=== PATIENT | female | born 1965 | race Two or more races ===

== ENCOUNTER → 2020-08-18 15:43 | Outpatient (BNVA) | payer MEDICAID, SELFPAY | PROVIDERS: Visit Provider Obstetrics & Gynecology | DX: Z76.89 Persons encountering health services in other specified circumstances (principal) ==

== ENCOUNTER 2020-08-25 13:25 | Outpatient (REF) | payer MEDICAID, SELFPAY ==
[2020-08-26 12:55] LABS: CT PCR NOT DETECTED (Not Detect.); NG PCR NOT DETECTED (Not Detect.)
[2020-08-26 13:03] LABS: BV Int Neg Control Negative (Negative); BV Int Pos Control Positive (Positive)
== END 2020-08-25 13:26 | disposition home or self-care (01) ==
LOC: HO.LAB 13:25
PROVIDERS: Visit Provider Obstetrics & Gynecology
DX: Z01.419 Encounter for gynecological examination (general) (routine) without abnormal findings (principal); N95.0 Postmenopausal bleeding; R10.2 Pelvic and perineal pain
CPT/HCPCS: 87480; 87491; 87510; 87591; 87660

== ENCOUNTER 2020-09-05 14:15 | Outpatient (REF) | payer MEDICAID, SELFPAY ==
--- NOTE | 2020-09-05 14:18 | US_ITS ---
EXAMINATION: PELVIC ULTRASOUND CLINICAL INFORMATION: Pelvic and perineal pain COMPARISON: Previous pelvic ultrasounds November and September 2018 TECHNIQUE: Transabdominal and transvaginal pelvic ultrasound was performed. Transvaginal exam was performed for better visualization of the uterus and ovaries. FINDINGS: The uterus is anteverted and measures 8.4 x 5 x 4.7 cm in dimension. No focal uterine lesion is seen. Endometrial thickness measures 0.5 cm. There is a small amount of fluid seen in the endometrial canal. There are multiple nabothian cysts in the cervix. The previously identified cervical calcification or fibroid on previous exams is not identified. The right ovary measures 1.9 x 0.9 x 1.7 cm, volume 1.4 mL. The left ovary is slightly enlarged measuring 3.4 x 2.9 x 2.8 cm, volume 14.4 mL. No solid or cystic adnexal lesion is seen. There is no fluid in the pelvis. US/US pelvic complete IMPRESSION: Small amount of fluid in the endometrial canal. The endometrium does not appear thickened measuring 0.5 cm. Multiple nabothian cysts in the cervix. Prominent left ovary.
--- NOTE | 2020-09-05 14:18 | US_ITS ---
EXAMINATION: PELVIC ULTRASOUND CLINICAL INFORMATION: Pelvic and perineal pain COMPARISON: Previous pelvic ultrasounds November and September 2018 TECHNIQUE: Transabdominal and transvaginal pelvic ultrasound was performed. Transvaginal exam was performed for better visualization of the uterus and ovaries. FINDINGS: The uterus is anteverted and measures 8.4 x 5 x 4.7 cm in dimension. No focal uterine lesion is seen. Endometrial thickness measures 0.5 cm. There is a small amount of fluid seen in the endometrial canal. There are multiple nabothian cysts in the cervix. The previously identified cervical calcification or fibroid on previous exams is not identified. The right ovary measures 1.9 x 0.9 x 1.7 cm, volume 1.4 mL. The left ovary is slightly enlarged measuring 3.4 x 2.9 x 2.8 cm, volume 14.4 mL. No solid or cystic adnexal lesion is seen. There is no fluid in the pelvis. US/US transvaginal IMPRESSION: Small amount of fluid in the endometrial canal. The endometrium does not appear thickened measuring 0.5 cm. Multiple nabothian cysts in the cervix. Prominent left ovary.
== END 2020-09-05 14:16 | disposition home or self-care (01) ==
LOC: HO.US 14:15
PROVIDERS: Visit Provider Obstetrics & Gynecology
DX: R10.2 Pelvic and perineal pain (principal)
CPT/HCPCS: 76830; 76856

== ENCOUNTER 2020-09-12 15:14 | Outpatient (REF) | payer MEDICAID, SELFPAY | END 2020-09-12 15:15 | disposition home or self-care (01) | LOC: HO.LAB 15:14 | PROVIDERS: Visit Provider Obstetrics & Gynecology | DX: N95.0 Postmenopausal bleeding (principal) | CPT/HCPCS: 58100; 88305; 88312 ==

== ENCOUNTER → 2020-09-26 13:40 | Outpatient (BNVA) | payer MEDICAID, SELFPAY | PROVIDERS: Visit Provider Obstetrics & Gynecology | DX: Z76.89 Persons encountering health services in other specified circumstances (principal) ==

== ENCOUNTER → 2020-09-28 08:48 | Outpatient (BNVA) | payer MEDICAID, SELFPAY | PROVIDERS: PCP Internal Medicine; Referring Provider Internal Medicine; Visit Provider Physician Assistant | DX: Z76.89 Persons encountering health services in other specified circumstances (principal) ==

== ENCOUNTER 2021-09-28 14:18 | Outpatient (REF) | payer MEDICAID, SELFPAY ==
[2021-09-29 01:01] LABS: CT PCR NOT DETECTED (Not Detect.); NG PCR NOT DETECTED (Not Detect.)
[2021-09-29 09:13] LABS: BV Int Neg Control Negative (Negative); BV Int Pos Control Positive (Positive)
== END 2021-09-28 14:19 | disposition home or self-care (01) ==
LOC: HO.LAB 14:18
PROVIDERS: PCP Family Medicine; Visit Provider Obstetrics & Gynecology
DX: Z01.419 Encounter for gynecological examination (general) (routine) without abnormal findings (principal); N76.0 Acute vaginitis; B96.89 Other specified bacterial agents as the cause of diseases classified elsewhere; Z12.11 Encounter for screening for malignant neoplasm of colon
CPT/HCPCS: 87480; 87491; 87510; 87591; 87660

== ENCOUNTER 2021-11-03 14:44 | Outpatient (REF) | payer MEDICAID, SELFPAY ==
--- NOTE | ~2021-11-03 | MM_ITS ---
EXAMINATION: MM SCREENING DIGITAL BREAST TOMOSYNTHESIS, BILATERAL CLINICAL INFORMATION: Screening. Asymptomatic. The lifetime risk of breast cancer based on the Tyrer-Cuzick Model is 16%. COMPARISON: Mammography: 01/29/2018, 01/22/2014 TECHNIQUE: Digital breast tomosynthesis is performed in both the craniocaudal and mediolateral oblique views along with computer-aided detection (CAD). Synthesized 2D images are generated from the tomosynthesis. FINDINGS: There are scattered areas of fibroglandular density (ACR BI-RADS breast composition Category b). There are no significant masses, abnormal calcifications, or other abnormalities. Parenchymal pattern is similar to prior studies. There is no developing density or architectural abnormality. The axilla and skin contours are unremarkable. No significant changes. MM/MM tomosynthesis screening BI IMPRESSION: No mammographic evidence of malignancy. ASSESSMENT: BI-RADS 1: Negative RECOMMENDATION: Routine annual mammography screening. This patient's information was entered into a reminder system with a target due date for their next mammogram.
== END 2021-11-03 14:45 | disposition home or self-care (01) ==
LOC: HO.MAMMO 14:44
PROVIDERS: Visit Provider Obstetrics & Gynecology
DX: Z12.31 Encounter for screening mammogram for malignant neoplasm of breast (principal)
CPT/HCPCS: 77063; 77067

== ENCOUNTER 2022-10-02 14:08 | Outpatient (REF) | payer MEDICAID, SELFPAY ==
[2022-10-03 08:05] LABS: CT PCR NOT DETECTED (Not Detect.); NG PCR NOT DETECTED (Not Detect.)
[2022-10-03 11:11] LABS: BV Int Neg Control Negative (Negative); BV Int Pos Control Positive (Positive)
[2022-10-05 05:48] LABS: HPV mRNA E6/E7 rflx Not Detected (Not Detected)
== END 2022-10-02 14:09 | disposition home or self-care (01) ==
LOC: HO.LNP 14:08
PROVIDERS: PCP Family Medicine; Visit Provider Obstetrics & Gynecology
DX: Z01.419 Encounter for gynecological examination (general) (routine) without abnormal findings (principal); Z11.51 Encounter for screening for human papillomavirus (HPV); N95.0 Postmenopausal bleeding; N76.0 Acute vaginitis; B96.89 Other specified bacterial agents as the cause of diseases classified elsewhere
CPT/HCPCS: 87480; 87491; 87510; 87591; 87624; 87660; 88142; 99212

== ENCOUNTER → 2022-10-23 14:48 | Outpatient (BNVA) | payer MEDICAID, SELFPAY | PROVIDERS: PCP Family Medicine; Visit Provider Nurse Practitioner Family | DX: Z12.11 Encounter for screening for malignant neoplasm of colon (principal) | CPT/HCPCS: 99202 ==

== ENCOUNTER 2022-10-23 15:57 | Outpatient (REF) | payer MEDICAID, SELFPAY ==
[2022-10-24 06:44] LABS: Syphilis Screen Nonreactive (Nonreactive)
[2022-10-24 08:05] LABS: HBsAGNum1 0.33 S/CO (0.00-0.99); HIV AB/AG Nonreactive (Nonreactive); Hepatitis B Surface Antigen Negative (Negative); ~HepC Num1 0.18 S/CO (0.00-0.79); ~Hepatitis C Antibody Nonreactive (Nonreactive)
== END 2022-10-23 15:58 | disposition home or self-care (01) ==
LOC: HO.LAB 15:57
PROVIDERS: Visit Provider Obstetrics & Gynecology
DX: Z01.818 Encounter for other preprocedural examination (principal); Z11.4 Encounter for screening for human immunodeficiency virus [HIV]; B96.89 Other specified bacterial agents as the cause of diseases classified elsewhere; N76.0 Acute vaginitis
CPT/HCPCS: 36415; 86780; 86803; 87340; 87389

== ENCOUNTER 2022-11-07 15:21 | Outpatient (REF) | payer MEDICAID, SELFPAY ==
--- NOTE | ~2022-11-07 | US_ITS ---
EXAMINATION: US PELVIS CLINICAL INFORMATION: Postmenopausal bleeding. COMPARISON: 09/05/2020 TECHNIQUE: Ultrasound of the pelvis is performed using both transabdominal and transvaginal transducers along with Doppler. Transvaginal imaging is performed due to inadequate visualization transabdominally. FINDINGS: Uterus: The uterus is anteverted, retroflexed, and measures 9.3 x 4.2 x 4.1 cm. Calcification noted at the cervix. Nabothian cysts are present. The double wall endometrial thickness is 9 mm. The uterus is smooth in contour and has normal myometrial echogenicity. No visible fibroid. Adnexa: Both ovaries are visualized. There is normal color flow to the adnexa. There is no ovarian torsion. There is no pelvic ascites or fluid collection. Right ovary measures 1.7 x 0.9 x 1.8 cm. Left ovary measures 2.1 x 2.1 x 1.9 cm. US/US pelvic and transvaginal IMPRESSION: Thickened endometrium in a postmenopausal patient. Thickness is increased when compared to the prior study from 09/05/2020. While this could be hyperplasia, neoplastic process is possible. Further evaluation recommended.
== END 2022-11-07 15:22 | disposition home or self-care (01) ==
LOC: HO.US 15:21
PROVIDERS: Visit Provider Obstetrics & Gynecology
DX: N95.0 Postmenopausal bleeding (principal)
CPT/HCPCS: 76830; 76856

== ENCOUNTER 2022-11-09 13:55 | Outpatient (REF) | payer MEDICAID, SELFPAY ==
--- NOTE | ~2022-11-09 | MM_ITS ---
EXAMINATION: MM SCREENING DIGITAL BREAST TOMOSYNTHESIS, BILATERAL CLINICAL INFORMATION: Screening. Asymptomatic. The lifetime risk of breast cancer based on the Tyrer-Cuzick Model is 5%. COMPARISON: Mammography: 11/03/2021, 01/29/2018, 05/24/2014 TECHNIQUE: Digital breast tomosynthesis is performed in both the craniocaudal and mediolateral oblique views along with computer-aided detection (CAD). Synthesized 2D images are generated from the tomosynthesis. FINDINGS: There are scattered areas of fibroglandular density (ACR BI-RADS breast composition Category b). There are no significant masses, abnormal calcifications, or other abnormalities. Parenchymal pattern is similar to prior studies. There is no developing density or architectural abnormality. The axilla and skin contours are unremarkable. No significant changes. MM/MM tomosynthesis screening BI IMPRESSION: No mammographic evidence of malignancy. ASSESSMENT: BI-RADS 1: Negative RECOMMENDATION: Routine annual mammography screening. This patient's information was entered into a reminder system with a target due date for their next mammogram.
== END 2022-11-09 13:56 | disposition home or self-care (01) ==
LOC: HO.MAMMO 13:55
PROVIDERS: PCP Family Medicine; Visit Provider Family Medicine
DX: Z12.31 Encounter for screening mammogram for malignant neoplasm of breast (principal)
CPT/HCPCS: 77063; 77067

== ENCOUNTER → 2022-11-27 11:42 | Outpatient (BNVA) | payer MEDICAID, SELFPAY | PROVIDERS: PCP Family Medicine; Visit Provider Obstetrics & Gynecology | DX: N95.0 Postmenopausal bleeding (principal) | CPT/HCPCS: 99212 ==

== ENCOUNTER 2022-12-14 14:11 | Emergency (ER) | payer MEDICAID, SELFPAY ==
--- NOTE | ~2022-12-14 | XR_ITS ---
EXAMINATION: XR CHEST CLINICAL INFORMATION: Chest pain, shortness of breath. COMPARISON: 08/26/2019 chest radiographs. TECHNIQUE: 2 views of the chest were obtained. FINDINGS: No significant abnormality is noted involving the heart, lungs, mediastinum, bony thorax or soft tissues. XR/XR chest 2V IMPRESSION: No acute cardiopulmonary process.
[2022-12-14 14:24] VITALS: BP 150/89; PULSE 119; RESP 22; TEMP 36.7; O2SAT 95; BMI 28.8
--- NOTE | 2022-12-14 14:24 | ED_ITS ---
HPI - SOB/Dyspnea General Chief Complaint: Dyspnea <Radha Zhao CNP - Last Filed: 12/14/22 14:27> Stated Complaint: Diff breathing/cough <Radha Zhao CNP - Last Filed: 12/14/22 14:27> Time Seen by Provider: 12/14/22 14:54 <Radha Zhao CNP - Last Filed: 12/14/22 14:27> Source: patient and quality improvement consultant <MANUEL Linton Last Filed: 12/14/22 19:43> Mode of arrival: ambulatory <MANUEL Linton Last Filed: 12/14/22 19:43> Limitations: language barrier <MANUEL Linton Last Filed: 12/14/22 19:43> History of Present Illness HPI Narrative: Patient is a 57 year old assigned female at with no reported medical history presenting to the emergency department today with a dry cough x 1 month. Patient states that she has had a persistent dry cough for over a month at this point and has developed a new sore throat as of 4 days ago. Patient denies any dizziness, lightheadedness, abdominal pain, nausea, vomiting, fever, chills, blurry vision, double vision, loss of vision, chest pain, difficulty breathing, shortness of breath, back pain, night sweats, pain with urination, increased urinary frequency, increased urinary urgency, blood in her urine or stool, syncope or a near syncopal episode, recent trauma or falls, bowel incontinence, bladder incontinence, bowel retention, bladder retention, or any other complaints at this time. <MANUEL Linton - Last Filed: 12/14/22 19:43> MD elicited complaint: cough <MANUEL Linton Last Filed: 12/14/22 19:43> Onset (ago): month(s) (1) <MANUEL Linton Last Filed: 12/14/22 19:43> Context: recent illness <MANUEL Linton Last Filed: 12/14/22 19:43> Timing: constant <MANUEL Linton Last Filed: 12/14/22 19:43> Severity: mild <MANUEL Linton Last Filed: 12/14/22 19:43> Exacerbating factors: nothing <MANUEL Linton - Last Filed: 12/14/22 19:43> Relieving factors: nothing <MANUEL Linton - Last Filed: 12/14/22 19:43> Associated symptoms: cough <MANUEL Linton - Last Filed: 12/14/22 19:43> Treatment prior to arrival: none <MANUEL Linton - Last Filed: 12/14/22 19:43> Related Data Home oxygen amount: none <MANUEL Linton - Last Filed: 12/14/22 19:43> Home Medications: Home Medications Medication Instructions Recorded Confirmed albuterol sulfate 2.5 mg/3 mL mg inhalation TID 10/02/22 (0.083 %) solution for nebulization albuterol sulfate 90 mcg/actuation 2 puff inhalation Q4-6H PRN 10/02/22 aerosol inhaler (Proventil HFA) baclofen 10 mg tablet 5 mg PO 10/02/22 clonidine HCl 0.2 mg tablet 0.2 mg PO BEDTIME 10/02/22 lidocaine 5 % topical patch 0 patch topical 10/02/22 (Lidoderm) nebulizer and compressor (Proneb 10/02/22 Max Compressor-LC Plus) peg [id number]-[id number] 1 1 drp ophthalmic (eye) TID 10/02/22 %-0.2 %-0.2 % eye drops (Artificial Tears ([id number])) triamcinolone acetonide 0.025 % appl topical BID 10/02/22 topical cream Previous Rx's Medication Instructions Recorded polyethylene glycol 3350 17 238 g PO ONCE #238 grams 10/23/22 gram/dose oral powder (Miralax) bisacodyl 5 mg tablet,delayed 10 mg PO ONCE 1 day #2 tabs 11/11/22 release (Dulcolax (bisacodyl)) pantoprazole 40 mg tablet,delayed 40 mg PO DAILY #30 tabs 11/11/22 release benzonatate 100 mg capsule 100 mg PO BID PRN cough 7 days #14 12/14/22 caps doxycycline hyclate 100 mg tablet 100 mg PO BID 7 days #14 tabs 12/14/22 prednisone 20 mg tablet 20 mg PO DAILY 7 days #7 tabs 12/14/22 <Radha Zhao CNP - Last Filed: 12/14/22 14:27> Allergies/Adverse Reactions: Allergies Allergy/AdvReac Type Severity Reaction Status Date / Time No Known Allergies Allergy Verified 10/23/22 14:58 [No Known Allergies*] <Radha Zhao CNP - Last Filed: 12/14/22 14:27> Review of Systems Constitutional: Constitutional: Reports no additional constitutional complaints, Denies chills, Denies fever(s) and Denies night sweats <MANUEL Linton - Last Filed: 12/14/22 19:43> Eyes: Eyes: Reports no additional eye complaints, Denies blurry vision, Denies change in vision, Denies diplopia, Denies eye discharge, Denies loss of vision and Denies eye pain <MANUEL Linton - Last Filed: 12/14/22 19:43> ENT: Denies dizziness and Reports sore throat <MANUEL Linton - Last Filed: 12/14/22 19:43> Cardiovascular: Cardiovascular: Reports no additional cardiovascular complaints, Denies chest pain, Denies lightheadedness, Denies Loss of Consciousness and Denies dyspnea <MANUEL Linton - Last Filed: 12/14/22 19:43> Respiratory: Respiratory: Reports no additional respiratory complaints, Reports cough and Denies dyspnea <MANUEL Linton - Last Filed: 12/14/22 19:43> Gastrointestinal: Gastrointestinal: Reports no additional gastrointestinal complaints, Denies abdominal pain, Denies melena, Denies hematochezia, Denies change in bowel habits and Denies change in stool character <MANUEL Linton - Last Filed: 12/14/22 19:43> Genitourinary: Genitourinary: Denies hematuria, Denies urinary frequency, Denies dysuria, Denies urinary incontinence, Denies urinary hesitancy and Denies urinary urgency <MANUEL Linton - Last Filed: 12/14/22 19:43> Musculoskeletal: Musculoskeletal: Reports no additional musculoskeletal complaints, Denies numbness and Denies tingling <MANUEL Linton Last Filed: 12/14/22 19:43> Neurologic: Denies dizziness, Denies loss of vision, Denies numbness and Denies tingling <MANUEL Linton - Last Filed: 12/14/22 19:43> Psychiatric: Psychiatric: Reports no additional psychiatric complaints <MANUEL Linton - Last Filed: 12/14/22 19:43> Endocrine: Endocrine: Reports no additional endocrine complaints <MANUEL Linton - Last Filed: 12/14/22 19:43> Hematologic/Lymphatic: Hematologic/Lymphatic: Reports no additional hematologic/lymphatic complaints <MANUEL Linton - Last Filed: 12/14/22 19:43> Allergic/Immunologic: Allergic/Immunologic: Reports no additional allergic/immunologic complaints <MANUEL Linton - Last Filed: 12/14/22 19:43> [facility] Past Medical History Attestation statement: The following information was validated with the patient. <MANUEL Linton - Last Filed: 12/14/22 19:43> Source: old records reviewed and nursing notes reviewed <MANUEL Linton - Last Filed: 12/14/22 19:43> Medical History: Medical History Anxiety Bipolar disorder History of anemia History of depression Panic attacks <Radha Zhao CNP - Last Filed: 12/14/22 14:27> Surgical History: Surgical History History of History of endometrial ablation <Radha Zhao CNP - Last Filed: 12/14/22 14:27> Family History Family History: Family History Maternal Grandmother Uterine cancer <Radha Zhao CNP - Last Filed: 12/14/22 14:27> Social History Social History: Social History Household Members: Spouse and Children Are you a primary care companion to a significant other at home: No Do you presently have visiting nurse or other home services: No Alcohol intake: never Smoked in Last 30 Days: No Use of substances other than those prescribed or required for medical reasons: No Any prior treatment program specific to substance use: No Advance Directives: Yes Advance Directives Information Provided: Yes Advance Directives on File: No Patient : No Current occupational status: disabled Sexual orientation: Straight/Heterosexual Gender identity: Female <Radhacecil Zhao CNP - Last Filed: 12/14/22 14:27> Physical Exam Vital Signs: Vital Signs: Last Vital Signs Temp 98.0 F 12/14/22 14:24 Pulse 119 H 12/14/22 14:24 Resp 22 H 12/14/22 14:24 BP 150/89 H 12/14/22 14:24 Pulse Ox 95 12/14/22 14:24 O2 Del Method 12/14/22 14:24 BMI result Body Mass Index 28.8 <Radha Zhao CNP - Last Filed: 12/14/22 14:27> Vital Signs: Last Vital Signs Temp 98.0 F 12/14/22 14:24 Pulse 119 H 12/14/22 14:24 Resp 22 H 12/14/22 14:24 BP 150/89 H 12/14/22 14:24 Pulse Ox 95 12/14/22 14:24 O2 Del Method 12/14/22 14:24 BMI result Body Mass Index 28.8 <MANUEL Linton - Last Filed: 12/14/22 19:43> Const: General: cooperative, no acute distress, alert and awake <MANUEL Linton - Last Filed: 12/14/22 19:43> Nutritional Appearance: well nourished <MANUEL Linton - Last Filed: 12/14/22 19:43> Orientation/consciousness: patient oriented x3 <MANUEL Linton - Last Filed: 12/14/22 19:43> Limitations: no limitations <MANUEL Linton - Last Filed: 12/14/22 19:43> HEENT: Head: Yes normal to inspection and Yes atraumatic <MANUEL Osorio - Last Filed: 12/14/22 19:43> Ears: hearing grossly normal bilaterally and external ears normal <MANUEL Linton - Last Filed: 12/14/22 19:43> General nose exam: Normal external nose present, no nasal discharge noted and no epistaxis <MANUEL Linton - Last Filed: 12/14/22 19:43> Face and sinus: Yes normal facial exam, No abrasion and No laceration <Denaedanica Menardjim [place] - Last Filed: 12/14/22 19:43> Mouth: Normal oral and palatal mucosa present, no drooling and no muffled voice <Denae Menardjim [place] - Last Filed: 12/14/22 19:43> Eyes: General: appearance normal, both eyes and all related structures <Denae Rik [place] - Last Filed: 12/14/22 19:43> Periorbital: periorbital findings normal <Denae Menardjim [place] - Last Filed: 12/14/22 19:43> Eyelids: Yes eyelids normal <Denaedanica Menardjim [place] - Last Filed: 12/14/22 19:43> Conjunctivae: conjunctivae normal <Denaedanica Menardjim [place] - Last Filed: 12/14/22 19:43> Pupils: Equal, round and reactive pupils present <Denae Jolly [place] - Last Filed: 12/14/22 19:43> EOM: EOMs intact bilaterally <Denaedanica Menardjim [place] - Last Filed: 12/14/22 19:43> Neck: Neck: Yes normal visual inspection, Yes full ROM and Yes no lymphadenopathy <Denaedanica Menardjim [place] - Last Filed: 12/14/22 19:43> Chest: Chest palpation & inspection: normal inspection of the chest <Denae Rik [facility] Last Filed: 12/14/22 19:43> Resp: Effort & Inspection: normal respiratory effort and able to speak in complete sentences <Denae Jolly [place] - Last Filed: 12/14/22 19:43> Auscultation: clear to auscultation bilaterally <Denae Rik [facility] Last Filed: 12/14/22 19:43> Cardio: Rate: regular rate <Denae Jolly [place] - Last Filed: 12/14/22 19:43> Rhythm: regular rhythm <Denae Rik [place] - Last Filed: 12/14/22 19:43> GI: Inspection: Yes normal to inspection <Denae Jolly [place] - Last Filed: 12/14/22 19:43> Palpation (GI): Soft to palpation, not firm, nontender, no guarding and not rigid <Denae MenardMANUEL fernandez - Last Filed: 12/14/22 19:43> Neuro: General: patient oriented x3 and moves all extremities <Denae MenardMANUEL fernandez - Last Filed: 12/14/22 19:43> Cranial nerves: Yes Equal, round and reactive pupils present <Denae JollyMANUEL - Last Filed: 12/14/22 19:43> Cognition (Neuro): normal cognition <Denae MenardMANUEL fernandez - Last Filed: 12/14/22 19:43> Motor exam (neuro): 5/5 motor strength present throughout <Denae JollyMANUEL - Last Filed: 12/14/22 19:43> Sensory Exam: Normal double simultaneous stimulation for sensation <Denae MenardMANUEL fernandez - Last Filed: 12/14/22 19:43> Coordination: [id number] test normal <Denae MenardMANUEL fernandez - Last Filed: 12/14/22 19:43> Extrem: General: Yes normal to inspection, Yes full ROM and Yes capillary refill normal <Denae MenardMANUEL fernandez - Last Filed: 12/14/22 19:43> Psych: Appearance: grossly normal <Denae JollyMANUEL - Last Filed: 12/14/22 19:43> Mental Status: mental status grossly normal <Denae MenardMANUEL fernandez - Last Filed: 12/14/22 19:43> Affect: normal affect <Denae MenardMANUEL fernandez - Last Filed: 12/14/22 19:43> Attitude: cooperative <Denaedanica MenardMANUEL fernandez - Last Filed: 12/14/22 19:43> Thought process: Normal thought process present <Denae MenardMANUEL fernandez - Last Filed: 12/14/22 19:43> Thought content: Normal thought content present <Denae MenardMANUEL fernandez - Last Filed: 12/14/22 19:43> Insight: Good insight present (Psych) <Denaedanica MenardMANUEL fernandez - Last Filed: 12/14/22 19:43> Course Course Course Narrative: This is an RME: Additional HPI, ROS, PE not included below will be deferred to primary provider. Patient is a 57-year-old female with past medical history of asthma who presents emergency department for evaluation of nonproductive cough, shortness of breath, orthopnea, intermittent fevers over the past month. Symptom onset began after she had returned home from a vacation. She has had COVID-19 testing at home which has been negative. She has trialed [id number] cold medication without any significant improvement. She is tachycardic and tachypneic Plan: labs, CXR, viral testing, EKG <Radha Zhao CNP - Last Filed: 12/14/22 14:27> Medical Decision Making Medical Decision Making [facility] Narrative: Patient is a 57 year old assigned female at with no reported medical history presenting to the emergency department today with a dry cough. Patient's physical exam was unremarkable. Patient's blood work was unremarkable. Patient's EKG was unremarkable. Patient's chest x-ray showed no acute process. I explained my physical exam findings as well as all test results to the patient. I answered all questions asked by the patient. I stressed the importance of the patient taking her medication as prescribed. I stressed the importance of the patient following up with her primary care provider. I stressed the importance of the patient returning to the emergency department immediately if her symptoms were to worsen or if she were to develop any dizziness, shortness of breath, difficulty breathing, chest pain, blurry vision, loss of vision, nausea, vomiting, abdominal pain, fever, chills, back pain, or any other complaints. Patient verbalized agreement and understanding with this treatment plan and discharge. <MANUEL Linton - Last Filed: 12/14/22 19:43> Differential Diagnosis Differential Diagnoses: The differential diagnosis associated with the presentation includes <MANUEL Linton - Last Filed: 12/14/22 19:43> persistent cough <MANUEL Linton - Last Filed: 12/14/22 19:43> Lab Data [facility] Lab Attestation statement: I reviewed the patient's lab results. <MANUEL Linton - Last Filed: 12/14/22 19:43> Result Diagrams: 12/14/22 14:43 12/14/22 14:43 <Radha Zhao CNP - Last Filed: 12/14/22 14:27> Labs: Lab Results 12/14/22 12/14/22 12/14/22 Range/Units 14:43 14:43 14:43 WBC 4.4 L (4.8-10.8) X10*3/uL RBC 4.59 (4.20-5.50) X10*6/uL Hgb 14.7 (12.0-16.0) g/dl Hct 43.4 (37.0-47.0) % MCV 94.6 (80.0-98.0) fL MCH 32.0 (27.0-33.0) pg MCHC 33.9 (31.0-35.0) g/dl RDW 11.6 (11.0-16.0) % Plt Count 331 (160-400) X10*3/uL MPV 9.0 L (9.4-12.3) fL Immature Gran % (Auto) 0.5 H (0.0-0.4) % Neut % (Auto) 53.4 (45-73) % Lymph % (Auto) 34.8 (20-40) % Upson % (Auto) 9.2 (2-11) % Eos % (Auto) 1.4 (0-4) % Baso % (Auto) 0.7 (0-2) % Lymph # (Auto) 1.5 (1.2-4.9) X10*3/uL Upson # (Auto) 0.4 (0.1-1.2) X10*3/uL Eos # (Auto) 0.1 (0.0-0.4) X10*3/uL Baso # (Auto) 0.0 (0.0-0.2) X10*3/uL Abs Immat Gran (auto) 0.02 (0.00-0.03) X10*3/uL Absolute Neuts (auto) 2.3 (2.0-8.3) x10*3/uL Absolute Nucleated RBC 0.000 (0.0-0.012) X10*3/uL Nucleated RBC % (auto) 0.0 (0.0-0.2) /100WBC PT 11.1 (10.0-13.1) SEC INR 1.0 (0.9-1.1) Sodium 138 (135-145) mmol/L Potassium 4.3 (3.3-5.1) mmol/L Chloride 106 (96-108) mmol/L Carbon Dioxide 24 (22-29) mmol/L Anion Gap 12 (12-20) BUN 14 (9-16) mg/dL Creatinine 0.79 (0.5-1.4) mg/dL Estim Creat Clear Calc 86.4 Estimated GFR > 60 Random Glucose 143 H (60-115) mg/dL Calcium 8.8 (8.4-10.2) mg/dL Total Bilirubin 0.6 (0.0-1.0) mg/dL AST 30 (5-31) U/L ALT 44 H (0-31) U/L Alkaline Phosphatase 101 (39-117) U/L Troponin I High Sens (<3.5-17.0) ng/L B-Natriuretic Peptide (<100) pg/mL Total Protein 7.2 (6.5-8.0) g/dL Albumin 4.1 (3.5-5.0) g/dL COVID-19 (GURPREET) (Negative) COVID-19 Clin Com Influenza Type A (ASHANTI) (Negative) Influenza Type B (ASHANTI) (Negative) Influenza A & B Note 12/14/22 12/14/22 12/14/22 Range/Units 14:43 14:43 14:43 WBC (4.8-10.8) X10*3/uL RBC (4.20-5.50) X10*6/uL Hgb (12.0-16.0) g/dl Hct (37.0-47.0) % MCV (80.0-98.0) fL MCH (27.0-33.0) pg MCHC (31.0-35.0) g/dl RDW (11.0-16.0) % Plt Count (160-400) X10*3/uL MPV (9.4-12.3) fL Immature Gran % (Auto) (0.0-0.4) % Neut % (Auto) (45-73) % Lymph % (Auto) (20-40) % Upson % (Auto) (2-11) % Eos % (Auto) (0-4) % Baso % (Auto) (0-2) % Lymph # (Auto) (1.2-4.9) X10*3/uL Upson # (Auto) (0.1-1.2) X10*3/uL Eos # (Auto) (0.0-0.4) X10*3/uL Baso # (Auto) (0.0-0.2) X10*3/uL Abs Immat Gran (auto) (0.00-0.03) X10*3/uL Absolute Neuts (auto) (2.0-8.3) x10*3/uL Absolute Nucleated RBC (0.0-0.012) X10*3/uL Nucleated RBC % (auto) (0.0-0.2) /100WBC PT (10.0-13.1) SEC INR (0.9-1.1) Sodium (135-145) mmol/L Potassium (3.3-5.1) mmol/L Chloride (96-108) mmol/L Carbon Dioxide (22-29) mmol/L Anion Gap (12-20) BUN (9-16) mg/dL Creatinine (0.5-1.4) mg/dL Estim Creat Clear Calc Estimated GFR Random Glucose (60-115) mg/dL Calcium (8.4-10.2) mg/dL Total Bilirubin (0.0-1.0) mg/dL AST (5-31) U/L ALT (0-31) U/L Alkaline Phosphatase (39-117) U/L Troponin I High Sens < 3.5 (<3.5-17.0) ng/L B-Natriuretic Peptide 10 (<100) pg/mL Total Protein (6.5-8.0) g/dL Albumin (3.5-5.0) g/dL COVID-19 (GURPREET) (Negative) COVID-19 Clin Com Influenza Type A (ASHANTI) Negative (Negative) Influenza Type B (ASHANTI) Negative (Negative) Influenza A & B Note See Note 12/14/22 Range/Units 14:43 WBC (4.8-10.8) X10*3/uL RBC (4.20-5.50) X10*6/uL Hgb (12.0-16.0) g/dl Hct (37.0-47.0) % MCV (80.0-98.0) fL MCH (27.0-33.0) pg MCHC (31.0-35.0) g/dl RDW (11.0-16.0) % Plt Count (160-400) X10*3/uL MPV (9.4-12.3) fL Immature Gran % (Auto) (0.0-0.4) % Neut % (Auto) (45-73) % Lymph % (Auto) (20-40) % Upson % (Auto) (2-11) % Eos % (Auto) (0-4) % Baso % (Auto) (0-2) % Lymph # (Auto) (1.2-4.9) X10*3/uL Upson # (Auto) (0.1-1.2) X10*3/uL Eos # (Auto) (0.0-0.4) X10*3/uL Baso # (Auto) (0.0-0.2) X10*3/uL Abs Immat Gran (auto) (0.00-0.03) X10*3/uL Absolute Neuts (auto) (2.0-8.3) x10*3/uL Absolute Nucleated RBC (0.0-0.012) X10*3/uL Nucleated RBC % (auto) (0.0-0.2) /100WBC PT (10.0-13.1) SEC INR (0.9-1.1) Sodium (135-145) mmol/L Potassium (3.3-5.1) mmol/L Chloride (96-108) mmol/L Carbon Dioxide (22-29) mmol/L Anion Gap (12-20) BUN (9-16) mg/dL Creatinine (0.5-1.4) mg/dL Estim Creat Clear Calc Estimated GFR Random Glucose (60-115) mg/dL Calcium (8.4-10.2) mg/dL Total Bilirubin (0.0-1.0) mg/dL AST (5-31) U/L ALT (0-31) U/L Alkaline Phosphatase (39-117) U/L Troponin I High Sens (<3.5-17.0) ng/L B-Natriuretic Peptide (<100) pg/mL Total Protein (6.5-8.0) g/dL Albumin (3.5-5.0) g/dL COVID-19 (GURPREET) Negative (Negative) COVID-19 Clin Com See Note Influenza Type A (ASHANTI) (Negative) Influenza Type B (ASHANTI) (Negative) Influenza A & B Note <Radhamary Zhao, FISH HATCHERY SUPERVISOR - Last Filed: 12/14/22 14:27> Lab Results 12/14/22 12/14/22 12/14/22 Range/Units 14:43 14:43 14:43 WBC 4.4 L (4.8-10.8) X10*3/uL RBC 4.59 (4.20-5.50) X10*6/uL Hgb 14.7 (12.0-16.0) g/dl Hct 43.4 (37.0-47.0) % MCV 94.6 (80.0-98.0) fL MCH 32.0 (27.0-33.0) pg MCHC 33.9 (31.0-35.0) g/dl RDW 11.6 (11.0-16.0) % Plt Count 331 (160-400) X10*3/uL MPV 9.0 L (9.4-12.3) fL Immature Gran % (Auto) 0.5 H (0.0-0.4) % Neut % (Auto) 53.4 (45-73) % Lymph % (Auto) 34.8 (20-40) % Upson % (Auto) 9.2 (2-11) % Eos % (Auto) 1.4 (0-4) % Baso % (Auto) 0.7 (0-2) % Lymph # (Auto) 1.5 (1.2-4.9) X10*3/uL Upson # (Auto) 0.4 (0.1-1.2) X10*3/uL Eos # (Auto) 0.1 (0.0-0.4) X10*3/uL Baso # (Auto) 0.0 (0.0-0.2) X10*3/uL Abs Immat Gran (auto) 0.02 (0.00-0.03) X10*3/uL Absolute Neuts (auto) 2.3 (2.0-8.3) x10*3/uL Absolute Nucleated RBC 0.000 (0.0-0.012) X10*3/uL Nucleated RBC % (auto) 0.0 (0.0-0.2) /100WBC PT 11.1 (10.0-13.1) SEC INR 1.0 (0.9-1.1) Sodium 138 (135-145) mmol/L Potassium 4.3 (3.3-5.1) mmol/L Chloride 106 (96-108) mmol/L Carbon Dioxide 24 (22-29) mmol/L Anion Gap 12 (12-20) BUN 14 (9-16) mg/dL Creatinine 0.79 (0.5-1.4) mg/dL Estim Creat Clear Calc 86.4 Estimated GFR > 60 Random Glucose 143 H (60-115) mg/dL Calcium 8.8 (8.4-10.2) mg/dL Total Bilirubin 0.6 (0.0-1.0) mg/dL AST 30 (5-31) U/L ALT 44 H (0-31) U/L Alkaline Phosphatase 101 (39-117) U/L Troponin I High Sens (<3.5-17.0) ng/L B-Natriuretic Peptide (<100) pg/mL Total Protein 7.2 (6.5-8.0) g/dL Albumin 4.1 (3.5-5.0) g/dL COVID-19 (GURPREET) (Negative) COVID-19 Clin Com Influenza Type A (ASHANTI) (Negative) Influenza Type B (ASHANTI) (Negative) Influenza A & B Note 12/14/22 12/14/22 12/14/22 Range/Units 14:43 14:43 14:43 WBC (4.8-10.8) X10*3/uL RBC (4.20-5.50) X10*6/uL Hgb (12.0-16.0) g/dl Hct (37.0-47.0) % MCV (80.0-98.0) fL MCH (27.0-33.0) pg MCHC (31.0-35.0) g/dl RDW (11.0-16.0) % Plt Count (160-400) X10*3/uL MPV (9.4-12.3) fL Immature Gran % (Auto) (0.0-0.4) % Neut % (Auto) (45-73) % Lymph % (Auto) (20-40) % Upson % (Auto) (2-11) % Eos % (Auto) (0-4) % Baso % (Auto) (0-2) % Lymph # (Auto) (1.2-4.9) X10*3/uL Upson # (Auto) (0.1-1.2) X10*3/uL Eos # (Auto) (0.0-0.4) X10*3/uL Baso # (Auto) (0.0-0.2) X10*3/uL Abs Immat Gran (auto) (0.00-0.03) X10*3/uL Absolute Neuts (auto) (2.0-8.3) x10*3/uL Absolute Nucleated RBC (0.0-0.012) X10*3/uL Nucleated RBC % (auto) (0.0-0.2) /100WBC PT (10.0-13.1) SEC INR (0.9-1.1) Sodium (135-145) mmol/L Potassium (3.3-5.1) mmol/L Chloride (96-108) mmol/L Carbon Dioxide (22-29) mmol/L Anion Gap (12-20) BUN (9-16) mg/dL Creatinine (0.5-1.4) mg/dL Estim Creat Clear Calc Estimated GFR Random Glucose (60-115) mg/dL Calcium (8.4-10.2) mg/dL Total Bilirubin (0.0-1.0) mg/dL AST (5-31) U/L ALT (0-31) U/L Alkaline Phosphatase (39-117) U/L Troponin I High Sens < 3.5 (<3.5-17.0) ng/L B-Natriuretic Peptide 10 (<100) pg/mL Total Protein (6.5-8.0) g/dL Albumin (3.5-5.0) g/dL COVID-19 (GURPREET) (Negative) COVID-19 Clin Com Influenza Type A (ASHANTI) Negative (Negative) Influenza Type B (ASHANTI) Negative (Negative) Influenza A & B Note See Note 12/14/22 Range/Units 14:43 WBC (4.8-10.8) X10*3/uL RBC (4.20-5.50) X10*6/uL Hgb (12.0-16.0) g/dl Hct (37.0-47.0) % MCV (80.0-98.0) fL MCH (27.0-33.0) pg MCHC (31.0-35.0) g/dl RDW (11.0-16.0) % Plt Count (160-400) X10*3/uL MPV (9.4-12.3) fL Immature Gran % (Auto) (0.0-0.4) % Neut % (Auto) (45-73) % Lymph % (Auto) (20-40) % Upson % (Auto) (2-11) % Eos % (Auto) (0-4) % Baso % (Auto) (0-2) % Lymph # (Auto) (1.2-4.9) X10*3/uL Upson # (Auto) (0.1-1.2) X10*3/uL Eos # (Auto) (0.0-0.4) X10*3/uL Baso # (Auto) (0.0-0.2) X10*3/uL Abs Immat Gran (auto) (0.00-0.03) X10*3/uL Absolute Neuts (auto) (2.0-8.3) x10*3/uL Absolute Nucleated RBC (0.0-0.012) X10*3/uL Nucleated RBC % (auto) (0.0-0.2) /100WBC PT (10.0-13.1) SEC INR (0.9-1.1) Sodium (135-145) mmol/L Potassium (3.3-5.1) mmol/L Chloride (96-108) mmol/L Carbon Dioxide (22-29) mmol/L Anion Gap (12-20) BUN (9-16) mg/dL Creatinine (0.5-1.4) mg/dL Estim Creat Clear Calc Estimated GFR Random Glucose (60-115) mg/dL Calcium (8.4-10.2) mg/dL Total Bilirubin (0.0-1.0) mg/dL AST (5-31) U/L ALT (0-31) U/L Alkaline Phosphatase (39-117) U/L Troponin I High Sens (<3.5-17.0) ng/L B-Natriuretic Peptide (<100) pg/mL Total Protein (6.5-8.0) g/dL Albumin (3.5-5.0) g/dL COVID-19 (GURPREET) Negative (Negative) COVID-19 Clin Com See Note Influenza Type A (ASHANTI) (Negative) Influenza Type B (ASHANTI) (Negative) Influenza A & B Note <MANUEL Linton Last Filed: 12/14/22 19:43> Independent Interpretation I performed an independent interpretation of an: EKG <MANUEL Linton - Last Filed: 12/14/22 19:43> Interpretation: Vent. Rate: 104 BPM ? ? Atrial Rate: 104 BPM P-R Int: 138 ms? QRS Dur: 074 ms QT Int: 346 ms ? ? ? P-R-T Axes: 054 021 049 degrees QTc Int: 454 ms ? Sinus tachycardia Otherwise normal ECG When compared with ECG of 10-JAN-2019 00:04, No significant change was found DD/ 1435 <MANUEL Linton - Last Filed: 12/14/22 19:43> Radiology Impression Radiologist Impression: My interpretation is in agreement with the radiologist's impression of this imaging study. EXAMINATION: XR CHEST CLINICAL INFORMATION: Chest pain, shortness of breath. COMPARISON: 08/26/2019 chest radiographs. TECHNIQUE: 2 views of the chest were obtained. FINDINGS: No significant abnormality is noted involving the heart, lungs, mediastinum, bony thorax or soft tissues. XR/XR chest 2V IMPRESSION: No acute cardiopulmonary process. Dictated By: Sawyer Garcia MD Signed By: Electronically signed by Sawyer Garcia MD 12/14/22 1515 <MANUEL Linton - Last Filed: 12/14/22 19:43> Discharge Plan Discharge Clinical Impression: Bronchitis <Radha Kaylayovani Zhao CNP - Last Filed: 12/14/22 14:27> Patient Disposition: Home, Self-Care <Radha Zhao CNP - Last Filed: 12/14/22 14:27> Instructions: Acute Bronchitis (ED) <Radha Zhao CNP - Last Filed: 12/14/22 14:27> Additional Instructions: Follow up with your primary care provider. Return to the emergency department immediately if your symptoms worsen or if you develop any dizziness, shortness of breath, difficulty breathing, chest pain, blurry vision, loss of vision, nausea, vomiting, abdominal pain, fever, chills, back pain, or any other complaints. Jimbo un seguimiento con quintanilla proveedor de atenci?n primaria. Regrese al departamento de emergencias de inmediato si edie s?ntomas empeoran o si presenta mareos, falta de aire, dificultad para respirar, dolor de pecho, visi?n borrosa, p?rdida de la visi?n, n?useas, v?mitos, dolor abdominal, fiebre, escalofr?os, dolor de espalda o cualquier otras quejas. <Radha Zhao CNP - Last Filed: 12/14/22 14:27> Prescriptions: New prednisone 20 mg tablet 20 mg PO DAILY 7 Days Qty: 7 0RF benzonatate 100 mg capsule 100 mg PO BID PRN (Reason: cough) 7 Days Qty: 14 0RF doxycycline hyclate 100 mg tablet 100 mg PO BID 7 Days Qty: 14 0RF No Action pantoprazole 40 mg tablet,delayed release (DR/EC) 40 mg PO DAILY Qty: 30 2RF Rx Instructions: take one tablet half an hour before breakfast bisacodyl [Dulcolax (bisacodyl)] 5 mg tablet,delayed release (DR/EC) 10 mg PO ONCE 1 Days Qty: 2 0RF Rx Instructions: take 2 tabs at noon the day before your colonoscopy polyethylene glycol 3350 [Miralax] 17 gram/dose powder 238 g PO ONCE Qty: 238 0RF Rx Instructions: As directed by gastroenterology department at [facility] clonidine HCl 0.2 mg tablet 0.2 mg PO BEDTIME Artificial Tears(ab-ehqq-ttox) 1-0.2-0.2 % drops 1 drp ophthalmic (eye) TID albuterol sulfate [Proventil HFA] 90 mcg/actuation HFA aerosol inhaler 2 puff inhalation Q4-6H PRN baclofen 10 mg tablet 5 mg PO albuterol sulfate 2.5 mg /3 mL (0.083 %) solution for nebulization inhalation TID (DME) nebulizer and compressor [Proneb Max Compressor-LC Plus] Device See Rx Instructions .ROUTE Rx Instructions: As directed lidocaine [Lidoderm] 5 % adhesive patch,medicated 0 patch topical triamcinolone acetonide 0.025 % cream topical BID <Radha Zhao CNP - Last Filed: 12/14/22 14:27> Referrals: [facility] [place] Family Medicine [Provider Group] (Call to establish and follow up with a primary care provider. If you already have a primary care provider, please follow up with them. Llame para establecer y hacer un seguimiento con un proveedor de atenci?n primaria. Si ya tiene un proveedor de atenci?n primaria, jimbo un seguimiento con ?l.) [facility] [place] [facility] [Provider Group] (Call to establish and follow up with a primary care provider. If you already have a primary care provider, please follow up with them. Llame para establecer y hacer un seguimiento con un proveedor de atenci?n primaria. Si ya tiene un proveedor de atenci?n primaria, jimbo un seguimiento con ?l.) [facility] [Provider Group] (Call to establish and follow up with a primary care provider. If you already have a primary care provider, please follow up with them. Llame para establecer y hacer un seguimiento con un proveedor de atenci?n primaria. Si ya tiene un proveedor de atenci?n primaria, jimbo un seguimiento con ?l.) <Radha Zhao CNP - Last Filed: 12/14/22 14:27> Interventions: ED Discharge Assessment Last Done: 12/14/22 15:46 <Radha Zhao CNP - Last Filed: 12/14/22 14:27> Discharge Date/Time: 12/14/22 15:46 <Radha Zhao CNP - Last Filed: 12/14/22 14:27> Print Language: Kuwaiti <Radha Zhao CNP - Last Filed: 12/14/22 14:27>
--- NOTE | 2022-12-14 14:27 | ECG_ITS ---
Test Reason : SOB Blood Pressure : / mmHG Vent. Rate : 104 BPM Atrial Rate : 104 BPM P-R Int : 138 ms QRS Dur : 074 ms QT Int : 346 ms P-R-T Axes : 054 021 049 degrees QTc Int : 454 ms Sinus tachycardia Otherwise normal ECG When compared with ECG of 10-JAN-2019 00:04, No significant change was found Referred By: Radha Zhao Electronically Signed By:GOMEZ CLEMONS MD
[2022-12-14 14:51] LABS: MANUAL DIFF FLAG NO
[2022-12-14 14:54] LABS: Basophils Percent Auto 0.7 % (0-2); Eosinophils Absolute Auto 0.1 X10*3/uL (0.0-0.4); Eosinophils Percent Auto 1.4 % (0-4); Hematocrit 43.4 % (37.0-47.0); Hemoglobin 14.7 g/dl (12.0-16.0); Imm Gran Abs Auto 0.02 X10*3/uL (0.00-0.03); Imm Gran Pct Auto 0.5 % (0.0-0.4); Lymphocytes Absolute Auto 1.5 X10*3/uL (1.2-4.9); Lymphocytes Percent Auto 34.8 % (20-40); Mean Corpuscular HGB Conc 33.9 g/dl (31.0-35.0); Mean Corpuscular Volume 94.6 fL (80.0-98.0); Monocytes Absolute Auto 0.4 X10*3/uL (0.1-1.2); Monocytes Percent Auto 9.2 % (2-11); Neutrophils Absolute Auto 2.3 x10*3/uL (2.0-8.3); Neutrophils Percent Auto 53.4 % (45-73); Platelet Count 331 X10*3/uL (160-400); Red Blood Count 4.59 X10*6/uL (4.20-5.50); Red Cell Distribution Width 11.6 % (11.0-16.0); White Blood Count 4.4 X10*3/uL (4.8-10.8)
[2022-12-14 15:03] LABS: Prothrombin Time 11.1 SEC (10.0-13.1)
[2022-12-14 15:07] LABS: Alanine Aminotransferase 44 U/L (0-31); Albumin Level 4.1 g/dL (3.5-5.0); Alkaline Phosphatase 101 U/L (39-117); Anion Gap 12 (12-20); Aspartate Amino Transferase 30 U/L (5-31); Bilirubin Total 0.6 mg/dL (0.0-1.0); Blood Urea Nitrogen 14 mg/dL (9-16); COVID-19 Test Negative (Negative); Calcium 8.8 mg/dL (8.4-10.2); Carbon Dioxide 24 mmol/L (22-29); Chloride 106 mmol/L (96-108); Creatinine Clr Calc Pharmacy 86.4; Estimated Glomerular Filt Rate > 60; Glucose Random 143 mg/dL (60-115); IDNOW Serial# 16C4AD1C; Potassium 4.3 mmol/L (3.3-5.1); Sodium 138 mmol/L (135-145); Total Protein 7.2 g/dL (6.5-8.0)
[2022-12-14 15:12] LABS: B Type Natriuretic Peptide 10 pg/mL (<100)
[2022-12-14 15:16] LABS: Troponin-I High Sensitivity < 3.5 ng/L (<3.5-17.0)
[2022-12-14 15:17] LABS: IDNOW Serial# 55D5AD1C; Influenza A Negative (Negative); Influenza B2 Negative (Negative)
== END 2022-12-14 15:46 | disposition home or self-care (01) ==
PROVIDERS: Nurse Practitioner Family; Emergency Provider Emergency Medicine Emergency Medical Services
DX: J40 Bronchitis, not specified as acute or chronic (principal); R06.02 Shortness of breath; Z20.822 Contact with and (suspected) exposure to COVID-19; Z20.828 Contact with and (suspected) exposure to other viral communicable diseases; Z79.899 Other long term (current) drug therapy
CPT/HCPCS: 71046; 80053; 83880; 84484; 85025; 85610; 87502; 87635; 93005; 99283; 99284

== ENCOUNTER → 2022-12-21 06:08 | Day surgery (SDC) | payer MEDICAID, SELFPAY ==
[2022-12-18 09:40] VITALS: BMI 28.0
--- NOTE | 2022-12-20 10:53 | HO.ANESPROP2 ---
Documented by User: Helen Becker NP 12/20/22 10:57 HPI - Anesthesia Eval Consult details Narrative: 57yo F for D&C Hysteroscopy,poss polypectomy/myomectomy [facility] 12/14/22 with acute bronchitis - RX for 7 day course of abx/steroids PMFSH Active Problems Active Problems: All Active Problems (Updated 12/15/22 @ 00:00 by Background Liz) Bacterial vaginosis (Acute) Well woman exam (Acute) Post-menopausal bleeding (Acute) Female pelvic pain (Acute) Encounter for screening colonoscopy (Acute) Past Medical History Medical History Anxiety Bipolar disorder History of anemia History of depression Panic attacks Family History Family History Maternal Grandmother Uterine cancer Surgical History Surgical History History of History of endometrial ablation Social History Social History Household Members: Spouse and Children Are you a primary memory care program director to a significant other at home: No Do you presently have visiting nurse or other home services: No Alcohol intake: never Patient Tobacco Use Status: Never used Tobacco Use of substances other than those prescribed or required for medical reasons: No Are you DNR?: No Advance Directives: No Advance Directives Information Provided: Yes Current occupational status: disabled Sexual orientation: Straight/Heterosexual Gender identity: Female Meds Allergies Allergy/AdvReac Type Severity Reaction Status Date / Time No Known Allergies Allergy Verified 10/23/22 14:58 [No Known Allergies*] Home Medications Medication Instructions Recorded Confirmed Last Taken Type albuterol sulfate 2.5 mg/3 mL 2.5 mg inhalation TID 10/02/22 12/18/22 Unknown History (0.083 %) solution for nebulization albuterol sulfate 90 mcg/actuation 2 puff inhalation Q4-6H PRN 10/02/22 12/18/22 Unknown History aerosol inhaler (Proventil HFA) Wheezing baclofen 10 mg tablet 5 mg PO BID 10/02/22 12/18/22 Unknown History clonidine HCl 0.2 mg tablet 0.2 mg PO BEDTIME 10/02/22 12/18/22 Unknown History lidocaine 5 % topical patch 1 patch topical DAILY 10/02/22 12/18/22 Unknown History (Lidoderm) nebulizer and compressor (Proneb 10/02/22 12/21/22 Unknown History Max Compressor-LC Plus) peg [id number] 1 1 drp ophthalmic (eye) TID 10/02/22 12/21/22 Unknown History %-0.2 %-0.2 % eye drops (Artificial Tears ([id number])) triamcinolone acetonide 0.025 % 1 appl topical BID 10/02/22 12/18/22 Unknown History topical cream atorvastatin 10 mg tablet 1 tab PO BEDTIME 12/18/22 12/18/22 Unknown History cholecalciferol (vitamin D3) 50 1 tab PO DAILY 12/18/22 12/18/22 Unknown History mcg (2,000 unit) tablet escitalopram oxalate 20 mg tablet 1 tab PO BEDTIME 12/18/22 12/18/22 Unknown History (Lexapro) lorazepam 0.5 mg tablet 1 tab PO BID PRN Anxiety 12/18/22 12/18/22 Unknown History multivitamin 1 tab PO QAM 12/18/22 12/18/22 Unknown History Exam Exam Date and Time: December 20, 2022 1053 Height,Weight and Vital Signs: Height 5 ft 6 in Weight 79 kg Pertinent Lab Results Pertinent Lab Results: Laboratory Tests 12/14/22 12/14/22 14:43 14:43 WBC 4.4 L Hgb 14.7 Hct 43.4 Plt Count 331 Sodium 138 Potassium 4.3 Chloride 106 Carbon Dioxide 24 BUN 14 Creatinine 0.79 Narrative Narrative: EKG 12/2022 Vent. Rate : 104 BPM ? ? Atrial Rate : 104 BPM ?? P-R Int : 138 ms? QRS Dur : 074 ms ? ? QT Int : 346 ms ? ? ? P-R-T Axes : 054 021 049 degrees ?? QTc Int : 454 ms ? Sinus tachycardia Otherwise normal ECG When compared with ECG of 10-JAN-2019 00:04, No significant change was found Assessment and Plan Assessment Anesthesia Assessment: Chart Reviewed Documented by User: Ole Dodd MD 12/21/22 07:34 PMF Past Medical History Medical History Anxiety Bipolar disorder History of anemia History of depression Panic attacks Patient : No Family History Family History Maternal Grandmother Uterine cancer Family history of problems with anesthesia: No Surgical History Surgical History History of History of endometrial ablation History of Problems with Anesthesia: No Social History Social History Household Members: Spouse and Children Are you a primary memory care program director to a significant other at home: No Do you presently have visiting nurse or other home services: No Alcohol intake: never Patient Tobacco Use Status: Never used Tobacco Use of substances other than those prescribed or required for medical reasons: No Are you DNR?: No Advance Directives: No Advance Directives Information Provided: Yes Current occupational status: disabled Sexual orientation: Straight/Heterosexual Gender identity: Female Meds Allergies Allergy/AdvReac Type Severity Reaction Status Date / Time No Known Allergies Allergy Verified 10/23/22 14:58 [No Known Allergies*] Home Medications Medication Instructions Recorded Confirmed Last Taken Type albuterol sulfate 2.5 mg/3 mL 2.5 mg inhalation TID 10/02/22 12/18/22 Unknown History (0.083 %) solution for nebulization albuterol sulfate 90 mcg/actuation 2 puff inhalation Q4-6H PRN 10/02/22 12/18/22 Unknown History aerosol inhaler (Proventil HFA) Wheezing baclofen 10 mg tablet 5 mg PO BID 10/02/22 12/18/22 Unknown History clonidine HCl 0.2 mg tablet 0.2 mg PO BEDTIME 10/02/22 12/18/22 Unknown History lidocaine 5 % topical patch 1 patch topical DAILY 10/02/22 12/18/22 Unknown History (Lidoderm) nebulizer and compressor (Proneb 10/02/22 12/21/22 Unknown History Max Compressor-LC Plus) peg [id number] 1 1 drp ophthalmic (eye) TID 10/02/22 12/21/22 Unknown History %-0.2 %-0.2 % eye drops (Artificial Tears ([id number])) triamcinolone acetonide 0.025 % 1 appl topical BID 10/02/22 12/18/22 Unknown History topical cream atorvastatin 10 mg tablet 1 tab PO BEDTIME 12/18/22 12/18/22 Unknown History cholecalciferol (vitamin D3) 50 1 tab PO DAILY 12/18/22 12/18/22 Unknown History mcg (2,000 unit) tablet escitalopram oxalate 20 mg tablet 1 tab PO BEDTIME 12/18/22 12/18/22 Unknown History (Lexapro) lorazepam 0.5 mg tablet 1 tab PO BID PRN Anxiety 12/18/22 12/18/22 Unknown History multivitamin 1 tab PO QAM 12/18/22 12/18/22 Unknown History Exam Airway Mallampati Class: I TM Dist: >3cm Neck ROM: Full Loose/Missing/Broken Teeth: Yes and Upper Heart: ok Lungs: ok Assessment and Plan Assessment Anesthesia Assessment: Anesthesia Plan Discussed Final Anesthetic Review Family History of Problems with Anesthesia: No History of Problems with Anesthesia: No NPO: Yes ASA Class: II Final Preanesthetic Review: No Changes in Pt Med Stat, Meds/Allgs Chart Reviewed, Consent Obtained/Reviewed and Anes Risks/Benef Reviewed Patient Risk: Low Procedure Risk: Low Anesthetic Plan Anesthetic Plan: GA and Agree w/ Assess. and Plan Disposition: Standard PACU
[2022-12-21] VITALS (9 sets, daily range): BP systolic 113–138; BP diastolic 68–86; PULSE 72–97; RESP 14–20; TEMP 36.1–36.5; O2SAT 90–97; BMI 30.4
[2022-12-21] MEDS: Albuterol Sulfate (0.083%) 2.5 MG/3 ML VIAL.NEB INHALE (06:34)
[2022-12-21] MEDS: Lactated Ringers 1,000 ML 100 ML IVCONT (06:47)
--- NOTE | 2022-12-21 07:35 | MHC.SHP ---
Pre-Procedural Eval Section A Date of Service: 12/21/22 The patient is an INPATIENT: No Changes since office visit: No Cold of Flu in the past 2 weeks, No New Medical Problems, No Changes in Medication and No Patient answered all questions The History & Physical has been completed within 30 days and I have reviewed it.: Yes Section B Chief Complaint: Postmenopausal bleeding Allergies: Allergies Allergy/AdvReac Type Severity Reaction Status Date / Time No Known Allergies Allergy Verified 10/23/22 14:58 [No Known Allergies*] Plan Diagnosis/Plan: Unchanged I have reviewed the history and physical and performed a pertinent physical examination on my patient. No changes have occurred unless specified. Time Spent With Patient Time: Total time managing care of this patient today ____ minutes.
--- NOTE | 2022-12-21 08:05 | P.BOP_ITS ---
Brief Operative Note Date of Service: 12/21/22 Pre-op diagnosis: Postmenopausal bleeding Post-op diagnosis: same (Extensive intrauterine adhesions from previous endometrial ablation) Procedure: Hysteroscopy D&C Surgeon: dAy Allred MD Anesthesia: GLMA Was an Senior Marketing Manager used for this Procedure?: No Estimated blood loss (mL): 0 Pathology: other (Endometrial Scrapping.) Condition: stable Disposition: PACU
--- NOTE | 2022-12-21 08:06 | W.PM.OPN ---
Operative Note Operative Note Date of Service: 12/21/22 Narrative: Preop Diagnosis: Post Menopausal bleeding Operation: Diagnostic Hysteroscopy, Dilataion & Curettage Post Op Diagnosis: Extensive intrauterine adhesions from previous endometrial ablation QBL: Minimal Anesthesia: GLMA Surgeon: Ady Allred MD Community Cultural Development Officer: None Complication: None Pathology: Endometrial Scrapings Procedure: The patient was put in the dorsal lithotomy position, scrubbed, and draped in the usual manner. A sterile speculum was inserted in the patient's vagina. The anterior lip of the cervix was grasped with a single tooth tenaculum. The cervix was dilated up to 5 mm, then the scope was inserted in the patient's uterus. Inspection revealed extensive intrauterine adhesions from previous endometrial ablation. The Myosure Reach device was used; the scope was removed from the endometrial cavity , sharp curettings was carried on with minimal amount of tissues retrieved. At the end of the procedure, all instruments were taken out of the patient uterine and vaginal cavity. The single tooth tenaculum was removed and homeostasis was assured using pressure,. The patient tolerated the procedure well and was transferred to the PACU in a stable condition.
[2022-12-21] MEDS: oxyCODONE HCl Immed Release 5 MG TABLET PO (08:27)
[2022-12-21] MEDS: fentaNYL citrate/PF 100 MCG/2 ML VIAL 50 MCG IVPUSH (08:28)
== END | disposition home or self-care (01) ==
PROVIDERS: PCP Pediatrics; Visit Provider Obstetrics & Gynecology
PROC: 0UDB8ZZ Extraction of Endometrium, Via Natural or Artificial Opening Endoscopic (ICD-10-PCS; CPT 58558; principal; 2022-12-21 07:30)
DX: N95.0 Postmenopausal bleeding (principal); N73.6 Female pelvic peritoneal adhesions (postinfective); Z98.890 Other specified postprocedural states; F41.1 Generalized anxiety disorder; F41.0 Panic disorder [episodic paroxysmal anxiety]; F31.9 Bipolar disorder, unspecified; Z79.899 Other long term (current) drug therapy
CPT/HCPCS: 58558; 88305; J2405; J3010

== ENCOUNTER → 2023-01-02 12:17 | Outpatient (BNVA) | payer MEDICAID, SELFPAY | PROVIDERS: PCP Pediatrics; Visit Provider Obstetrics & Gynecology | DX: N95.0 Postmenopausal bleeding (principal) | CPT/HCPCS: 99212 ==

== ENCOUNTER 2023-04-27 23:46 | Emergency (ER) | payer MEDICAID, SELFPAY ==
--- NOTE | ~2023-04-27 | XR_ITS ---
EXAMINATION: XR WRIST, RIGHT CLINICAL INFORMATION: Acute right wrist pain COMPARISON: Right hand 10/16/2018 TECHNIQUE: PA, lateral, and oblique views of the right wrist. FINDINGS: The bones and soft tissues are normal. No fracture. Alignment is anatomic with normal joint spaces. No erosions or abnormal soft tissue calcifications. XR/XR wrist RT 2V IMPRESSION: Normal right wrist.
[2023-04-27 23:49] VITALS: BP 155/87; PULSE 117; RESP 18; TEMP 36.8; O2SAT 95; BMI 28.8
[2023-04-28 00:44] VITALS: BP 164/95; PULSE 109; RESP 12; TEMP 37; O2SAT 97
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
[2023-04-28] MEDS: Acetaminophen 325 MG TABLET 975 MG PO (01:57)
[2023-04-28] MEDS: Lidocaine 4 % Cream KIT 1 APPL TOPICAL (01:58)
[2023-04-28 02:00] VITALS: BP 160/92; PULSE 99; RESP 16; TEMP 36.7; O2SAT 98
== END 2023-04-28 02:16 | disposition home or self-care (01) ==
PROVIDERS: Emergency Provider Emergency Medicine
DX: M25.531 Pain in right wrist (principal); M79.672 Pain in left foot; Z79.899 Other long term (current) drug therapy
CPT/HCPCS: 73100; 96365; 96375; 99284

== ENCOUNTER → 2023-09-26 15:09 | Outpatient (REF) | payer MEDICAID, SELFPAY ==
--- NOTE | 2023-09-26 15:11 | CA_ITS ---
Transthoracic Echocardiogram Patient (Last, First, Middle): Jw Garcia, Gender: Female Date of : 1965 Age: 58 Procedure Date: 09/26/2023 Procedure Type: Transthoracic Echocardiogram Location: OP Height: 167.64 cm Weight: 85.73 kg BSA: 1.95 m2 Heart Rate: bpm BP: 128 / 90 mmHg Screening Representative: TO Referring MD: Nicole Rivera MD [employer] Supervisor: Luis Goode MD Symptoms: ORTHOPNEA R06.01 INTER CHEST PAIN Study Quality: Fair/Contrast ECG Rhythm: Sinus Conclusions: - 1. Normal LV ejection fraction of 60 65% with impaired relaxation filling pattern 2. Mild mitral regurgitation 3. No gross pericardial effusion Findings Procedure Information Contrast agent, definity, is being given per protocol without apparent complications. Left Ventricle Normal left ventricular size, thickness, and systolic function. The visually estimated ejection fraction is between 60-65%. Spectral Doppler is indicative of an impaired relaxation filling pattern. E/E prime ratio is between 8 and 15 consistent with indeterminate filling pressures. Right Ventricle Normal right ventricular cavity size and systolic function. Atria The left atrium is normal in size. There is no evidence of interatrial shunt. The right atrium is normal in size. Aortic Valve The aortic valve structure and function is likely normal. There is no aortic valve stenosis. There is no aortic valve regurgitation. Mitral Valve There is mild anterior and posterior mitral leaflet thickening. There is mild mitral valve regurgitation. There is no mitral valve stenosis. Pulmonic Valve The pulmonic valve is likely normal. Tricuspid Valve Likely normal tricuspid valve structure and function. Tricuspid regurgitation envelope is inadequate for calculation of right ventricular systolic pressure. Normal right atrial pressure. Great Vessels All visible segments of the aorta are normal in size. The pulmonary artery was not well visualized. Venous The inferior vena cava is normal in size and collapses greater than 50% with inspiration. Pericardium/Pleural There is no evidence of pericardial effusion. Prior Study Comparison No prior study available for comparison. Measurements 2D Linear Measurements IVSd: 1.11 0.6-0.9/0.6-1.0 cm LVIDd: 3.87 3.9-5.3/4.2-5.9 cm LVIDd Index: 1.98 2.4-3.2/2.2-3.1 cm/m2 LVIDs: 2.77 2.0-3.6 cm LVPWd: 0.85 0.7-1.1 cm LA Diam: 3.20 2.7-3.8/3.0-4.0 cm LAIDs Index: 1.64 1.5-2.3 cm/m2 LV Mass: 145.27 67-162/88-224 g LV Mass Index: 74.50 43-95/49-115 g/m2 LVOT Diam: 2.00 3.0+(-)1.3 cm 2D Systolic Function EF 4C: 63.40 >55% EF 2C: 58.40 >55% EF BiP: 61.40 >55% Mitral Valve MV Pk E: 0.99 MV PK A: 1.15 MV Decel Time: 210.00 E/A: 0.90 E'Lateral: 7.72 E'Medial: 6.53 E/E' Med: 15.20 E/E' Lat: 12.80 PHT: 61.00 MVA PHT: 3.61 Decel Adair: 4.72 MR VTI: 1.79 Aortic Valve AoV Pk Andrew: 1.38 AoV Mn Andrew: 1.00 AoV VTI: 0.28 AoV Pk Grad: 8.00 Aov Mn Grad: 4.00 MITRA Cont.VTI: 2.02 LVOT LVOT Pk Andrew: 0.80 LVOT Mn Andrew: 0.55 LVOT VTI: 0.18 LVOT Pk Grad: 3.00 LVOT Mn Grad: 1.00 LVOT Diam: 2.00 LVOT Area: 3.14 Diastolic Function MV Pk E: 0.99 MV Pk A: 1.15 E/A: 0.90 E'Medial: 6.53 E/E' Med: 15.20 E' Laterial: 7.72 E/E' Lat: 12.80 Right Ventricle TAPSE (mm): 17.50 TVS' Andrew: 9.03 Tricuspid Valve RA Press: 3.00 Great Vessels Aorta Sinus of Valsalva: 2.97 2.0-3.5 cm Ao Asc: 3.10 2.1-3.4 cm Updated in Other Vendor System with Status of Final Luis Goode MD electronically signed on 09/26/2023 4:44:08 PM with status of Final
== END ==
LOC: HO.CARD 15:09
PROVIDERS: PCP General Practice; Visit Provider General Practice
DX: R06.01 Orthopnea (principal)
CPT/HCPCS: 93306; Q9957

== ENCOUNTER → 2023-09-26 15:11 | Outpatient (BNV) | payer MEDICAID, SELFPAY | PROVIDERS: PCP General Practice; Visit Provider Internal Medicine Cardiovascular Disease | DX: I34.0 Nonrheumatic mitral (valve) insufficiency (principal) | CPT/HCPCS: 93306 ==

== ENCOUNTER 2023-10-08 02:59 | Emergency (ER) | payer MEDICAID, SELFPAY ==
--- NOTE | 2023-10-08 | ECG_ITS ---
Test Reason : CP Blood Pressure : / mmHG Vent. Rate : 095 BPM Atrial Rate : 095 BPM P-R Int : 138 ms QRS Dur : 076 ms QT Int : 352 ms P-R-T Axes : 053 010 031 degrees QTc Int : 442 ms Normal sinus rhythm Normal ECG When compared with ECG of 14-DEC-2022 14:35, No significant change was found Referred By: Generic ED Physician Electronically Signed By:TARAN GUY
[2023-10-08 03:14] VITALS: BP 162/86; PULSE 96; RESP 16; TEMP 36.5; O2SAT 98; BMI 28.2
--- NOTE | 2023-10-08 03:21 | ED_ITS ---
HPI - Chest Pain General Chief Complaint: Chest Pain Stated Complaint: chest pain, numb shoulders, L leg pain Time Seen by Provider: 10/08/23 03:21 Source: patient Mode of arrival: ambulatory Limitations: no limitations History of Present Illness HPI narrative: Patient history of anxiety had an argument with her daughter yesterday since then patient is tearful in complaining of chest pain patient does take Klonopin for anxiety unable to sleep since then patient had similar pain when she gets panic attack no known cardiac history pain is sharp in character left side going to the arm feels short of breath but saturating 98% on room air Related Data Home Medications Medication Instructions Recorded Confirmed albuterol sulfate 2.5 mg/3 mL 2.5 mg inhalation TID 10/02/22 12/18/22 (0.083 %) solution for nebulization albuterol sulfate 90 mcg/actuation 2 puff inhalation Q4-6H PRN 10/02/22 12/18/22 aerosol inhaler (Proventil HFA) Wheezing baclofen 10 mg tablet 5 mg PO BID 10/02/22 12/18/22 clonidine HCl 0.2 mg tablet 0.2 mg PO BEDTIME 10/02/22 12/18/22 lidocaine 5 % topical patch 1 patch topical DAILY 10/02/22 12/18/22 (Lidoderm) nebulizer and compressor (Proneb 10/02/22 12/21/22 Max Compressor-LC Plus) peg [id number] 1 1 drp ophthalmic (eye) TID 10/02/22 12/21/22 %-0.2 %-0.2 % eye drops (Artificial Tears ([id number])) triamcinolone acetonide 0.025 % 1 appl topical BID 10/02/22 12/18/22 topical cream atorvastatin 10 mg tablet 1 tab PO BEDTIME 12/18/22 12/18/22 cholecalciferol (vitamin D3) 50 1 tab PO DAILY 12/18/22 12/18/22 mcg (2,000 unit) tablet escitalopram oxalate 20 mg tablet 1 tab PO BEDTIME 12/18/22 12/18/22 (Lexapro) lorazepam 0.5 mg tablet 1 tab PO BID PRN Anxiety 12/18/22 12/18/22 multivitamin 1 tab PO QAM 12/18/22 12/18/22 Previous Rx's Medication Instructions Recorded polyethylene glycol 3350 17 238 g PO ONCE #238 grams 10/23/22 gram/dose oral powder (Miralax) bisacodyl 5 mg tablet,delayed 10 mg (2 x 5 mg) PO ONCE 1 day #2 11/11/22 release (Dulcolax (bisacodyl)) tabs benzonatate 100 mg capsule 100 mg PO BID PRN cough 7 days #14 12/14/22 caps doxycycline hyclate 100 mg tablet 100 mg PO BID 7 days #14 tabs 12/14/22 pantoprazole 40 mg tablet,delayed 40 mg PO DAILY #30 tabs 02/19/23 release Allergies Allergy/AdvReac Type Severity Reaction Status Date / Time No Known Allergies Allergy Verified 04/27/23 23:59 [No Known Allergies*] Review of Systems 2 Review of Systems: Yes all other systems are reviewed and are negative [facility] Past Medical History Medical History History of anemia History of depression Anxiety Bipolar disorder Panic attacks Surgical History Hx of hand surgery Hx of dilation and curettage History of endometrial ablation History of Family History Family History Maternal Grandmother Uterine cancer Social History Social History Household Members: Spouse and Children Are you a primary long term care phlebotomist to a significant other at home: No Do you presently have visiting nurse or other home services: No Alcohol intake: current Alcohol intake frequency: holidays/special occasions only Patient Tobacco Use Status: Never used Tobacco Current occupational status: disabled Sexual orientation: Straight/Heterosexual Gender identity: Female Physical Exam 2 Vital Signs: Vital Signs: Last Vital Signs Temp 97.7 F 10/08/23 03:14 Pulse 96 10/08/23 03:14 Resp 16 10/08/23 03:14 BP 162/86 H 10/08/23 03:14 Pulse Ox 98 10/08/23 03:14 O2 Del Method Room Air 10/08/23 03:14 BMI result Body Mass Index 28.2 Appearance: Alert. Oriented X3. No acute distress. Tearful Eyes: PERRLA, No Nystagmus ENT: Pharynx normal. Oral Mucosa moist Neck: Normal inspection. Neck supple. CVS: Normal heart rate and rhythm. Pulses normal. Respiratory: No respiratory distress. Equal air entry bilateral, no wheezing/rales/rhonchi Abdomen: Soft and nontender. Bowel sounds are present, no mass palpable, no CVA tenderness Skin: Skin warm and dry. Normal skin color. Normal skin turgor. Extremities: No lower extremity edema. No calf tenderness Neuro: Oriented X 3. No motor deficit. No sensory deficit.No cerebellar signs , cranial nerves II-XII intact Medications Administered Discontinued Medications Generic Name Dose Route Start Last Admin Trade Name Freq PRN Reason Stop Dose Admin Aspirin 162 mg 10/08/23 03:40 10/08/23 03:56 Aspirin 81 Mg Tab.Chew PO 10/08/23 03:41 162 mg ONCE ONE Administration Lorazepam 2 mg 10/08/23 03:40 10/08/23 03:56 Lorazepam 1 Mg Tablet PO 10/08/23 03:41 2 mg ONCE ONE Administration Medical Decision Making Medical Decision Making [facility] Narrative: Patient atypical chest pain with panic attack with history of same in the past with normal EKG normal cardiac enzymes pain for more than 24 hours unlikely PE as no significant shortness of breath and no risk factor lab workup is normal patient felt better after Ativan will discharge patient home Differential Diagnosis Differential Diagnoses: The differential diagnosis associated with the presentation includes ACS/anxiety/panic attacks/PE Lab Data [facility] Lab Attestation statement: I reviewed the patient's lab results. 10/08/23 03:26 10/08/23 03:26 Labs: Lab Results 10/08/23 Range/Units 03:26 WBC 5.3 (4.8-10.8) X10*3/uL RBC 4.64 (4.20-5.50) X10*6/uL Hgb 14.7 (12.0-16.0) g/dl Hct 42.9 (37.0-47.0) % MCV 92.5 (80.0-98.0) fL MCH 31.7 (27.0-33.0) pg MCHC 34.3 (31.0-35.0) g/dl RDW 11.9 (11.0-16.0) % Plt Count 312 (160-400) X10*3/uL MPV 9.2 L (9.4-12.3) fL Immature Gran % (Auto) 0.2 (0.0-0.4) % Neut % (Auto) 61.9 (45-73) % Lymph % (Auto) 29.0 (20-40) % [place] % (Auto) 7.6 (2-11) % Eos % (Auto) 0.9 (0-4) % Baso % (Auto) 0.4 (0-2) % Lymph # (Auto) 1.5 (1.2-4.9) X10*3/uL [place] # (Auto) 0.4 (0.1-1.2) X10*3/uL Eos # (Auto) 0.1 (0.0-0.4) X10*3/uL Baso # (Auto) 0.0 (0.0-0.2) X10*3/uL Abs Immat Gran (auto) 0.01 (0.00-0.03) X10*3/uL Absolute Neuts (auto) 3.3 (2.0-8.3) x10*3/uL Absolute Nucleated RBC 0.000 (0.0-0.012) X10*3/uL Nucleated RBC % (auto) 0.0 (0.0-0.2) /100WBC Sodium 141 (135-145) mmol/L Potassium 3.8 (3.3-5.1) mmol/L Chloride 108 (96-108) mmol/L Carbon Dioxide 22 (22-29) mmol/L Anion Gap 15 (12-20) BUN 15 (9-16) mg/dL Creatinine 0.75 (0.5-1.4) mg/dL Estim Creat Clear Calc 88.9 Estimated GFR > 60 Random Glucose 104 (60-115) mg/dL Calcium 9.2 (8.4-10.2) mg/dL Total Bilirubin 0.5 (0.0-1.0) mg/dL AST 25 (5-31) U/L ALT 23 (0-31) U/L Alkaline Phosphatase 87 (39-117) U/L Troponin I High Sens < 2.7 (<3.5-17.0) ng/L Total Protein 7.8 (6.5-8.0) g/dL Albumin 4.3 (3.5-5.0) g/dL Independent Interpretation I performed an independent interpretation of an: EKG Interpretation: Normal sinus rhythm 195 beats per minute normal interval normal axis no acute ST-T no acute ischemia Discharge Plan Discharge Clinical Impression: Chest pain, Anxiety Patient Disposition: Home, Self-Care Instructions: Chest Pain (ED), Anxiety (ED) Additional Instructions: Continue taking medicine for anxiety Your chest pain is unlikely from the heart Follow-up with PCP if any concerns Prescriptions: No Action bisacodyl [Dulcolax (bisacodyl)] 5 mg tablet,delayed release (DR/EC) 10 mg PO ONCE 1 Days Qty: 2 0RF Rx Instructions: take 2 tabs at noon the day before your colonoscopy pantoprazole 40 mg tablet,delayed release (DR/EC) 40 mg PO DAILY Qty: 30 2RF Rx Instructions: take one tablet half an hour before breakfast multivitamin Tablet 1 tab PO QAM atorvastatin 10 mg tablet 1 tab PO BEDTIME lorazepam 0.5 mg tablet 1 tab PO BID PRN (Reason: Anxiety) escitalopram oxalate [Lexapro] 20 mg tablet 1 tab PO BEDTIME cholecalciferol (vitamin D3) 50 mcg (2,000 unit) tablet 1 tab PO DAILY benzonatate 100 mg capsule 100 mg PO BID PRN (Reason: cough) 7 Days Qty: 14 0RF doxycycline hyclate 100 mg tablet 100 mg PO BID 7 Days Qty: 14 0RF polyethylene glycol 3350 [Miralax] 17 gram/dose powder 238 g PO ONCE Qty: 238 0RF Rx Instructions: As directed by gastroenterology department at [facility] clonidine HCl 0.2 mg tablet 0.2 mg PO BEDTIME Artificial Tears(at-prfu-abla) 1-0.2-0.2 % drops 1 drp ophthalmic (eye) TID albuterol sulfate [Proventil HFA] 90 mcg/actuation HFA aerosol inhaler 2 puff inhalation Q4-6H PRN (Reason: Wheezing) baclofen 10 mg tablet 5 mg PO BID albuterol sulfate 2.5 mg /3 mL (0.083 %) solution for nebulization 2.5 mg inhalation TID (DME) nebulizer and compressor [Proneb Max Compressor-LC Plus] Device See Rx Instructions .ROUTE Rx Instructions: As directed lidocaine [Lidoderm] 5 % adhesive patch,medicated 1 patch topical DAILY triamcinolone acetonide 0.025 % cream 1 appl topical BID
[2023-10-08 03:29] VITALS: PULSE 91
[2023-10-08 03:31] LABS: MANUAL DIFF FLAG NO
[2023-10-08 03:32] LABS: Basophils Percent Auto 0.4 % (0-2); Eosinophils Absolute Auto 0.1 X10*3/uL (0.0-0.4); Eosinophils Percent Auto 0.9 % (0-4); Hematocrit 42.9 % (37.0-47.0); Hemoglobin 14.7 g/dl (12.0-16.0); Imm Gran Abs Auto 0.01 X10*3/uL (0.00-0.03); Imm Gran Pct Auto 0.2 % (0.0-0.4); Lymphocytes Absolute Auto 1.5 X10*3/uL (1.2-4.9); Mean Corpuscular HGB Conc 34.3 g/dl (31.0-35.0); Mean Corpuscular Hemoglobin 31.7 pg (27.0-33.0); Mean Corpuscular Volume 92.5 fL (80.0-98.0); Mean Platelet Volume 9.2 fL (9.4-12.3); Monocytes Absolute Auto 0.4 X10*3/uL (0.1-1.2); Monocytes Percent Auto 7.6 % (2-11); Neutrophils Absolute Auto 3.3 x10*3/uL (2.0-8.3); Neutrophils Percent Auto 61.9 % (45-73); Platelet Count 312 X10*3/uL (160-400); Red Blood Count 4.64 X10*6/uL (4.20-5.50); Red Cell Distribution Width 11.9 % (11.0-16.0); White Blood Count 5.3 X10*3/uL (4.8-10.8)
[2023-10-08 03:49] LABS: Alanine Aminotransferase 23 U/L (0-31); Albumin Level 4.3 g/dL (3.5-5.0); Alkaline Phosphatase 87 U/L (39-117); Anion Gap 15 (12-20); Aspartate Amino Transferase 25 U/L (5-31); Bilirubin Total 0.5 mg/dL (0.0-1.0); Blood Urea Nitrogen 15 mg/dL (9-16); Calcium 9.2 mg/dL (8.4-10.2); Carbon Dioxide 22 mmol/L (22-29); Chloride 108 mmol/L (96-108); Creatinine Clr Calc Pharmacy 88.9; Estimated Glomerular Filt Rate > 60; Glucose Random 104 mg/dL (60-115); Potassium 3.8 mmol/L (3.3-5.1); Sodium 141 mmol/L (135-145); Total Protein 7.8 g/dL (6.5-8.0)
[2023-10-08 03:54] LABS: Troponin-I High Sensitivity < 2.7 ng/L (<3.5-17.0)
[2023-10-08] MEDS: LORazepam 1 MG TABLET 2 MG PO (03:56)
[2023-10-08] MEDS: Aspirin 81 MG TAB.CHEW 162 MG PO (03:56)
--- NOTE | 2023-10-08 04:17 | PC.NURSE ---
Patient presenting to ED for evaluation of pressure like pain in her chest radiating to bilateral arms, hands and upper abdomen, patient also endorses headache, and feeling as having no air, hard to breath . Patient's spouse reports onset of chest pain after having an argument with one of her kids. Patient reports history of Panic Attacks and Anxiety. EKG completed by behavioral technician, 20 G IV line placed in L AC, labs drawn and sent to lab for processing, commercial credit lead applied. Call garcia within patient's reach.
[2023-10-08 05:03] VITALS: BP 130/79; PULSE 90; RESP 18; TEMP 36.8; O2SAT 98
== END 2023-10-08 05:05 | disposition home or self-care (01) ==
PROVIDERS: Emergency Provider Internal Medicine
DX: R07.89 Other chest pain (principal); F41.1 Generalized anxiety disorder; F43.0 Acute stress reaction
CPT/HCPCS: 36415; 80053; 84484; 85025; 93005; 99283; 99285

== ENCOUNTER → 2023-10-08 03:16 | Outpatient (BNV) | payer MEDICAID, SELFPAY | PROVIDERS: Emergency Provider Internal Medicine; Visit Provider Internal Medicine | DX: R07.9 Chest pain, unspecified (principal) | CPT/HCPCS: 93010 ==

== ENCOUNTER 2024-01-23 14:16 | Outpatient (REF) | payer MEDICAID, SELFPAY ==
--- NOTE | ~2024-01-23 | XR_ITS ---
EXAMINATION: XR KNEE, LEFT CLINICAL INFORMATION: Patient states left knee pain over a year, has to crawl upstairs due to locking. Order states pain and knee giving out. COMPARISON: None available. TECHNIQUE: 3 views of the left knee. FINDINGS: Moderate joint effusion present. Mild narrowing of the medial compartment. Tiny tricompartmental marginal osteophytes. XR/XR knee LT 3V IMPRESSION: Moderate joint effusion. Mild degenerative changes.
== END 2024-01-23 14:17 | disposition home or self-care (01) ==
LOC: HO.HHCX 14:16
PROVIDERS: Visit Provider General Practice
DX: M25.562 Pain in left knee (principal); G89.29 Other chronic pain
CPT/HCPCS: 73562

== ENCOUNTER 2024-02-11 12:25 | Outpatient (REF) | payer MEDICAID, SELFPAY | END 2024-02-11 12:26 | disposition home or self-care (01) | LOC: HO.MAMMO 12:25 | PROVIDERS: PCP General Practice; Visit Provider Family Medicine | DX: Z12.31 Encounter for screening mammogram for malignant neoplasm of breast (principal); R07.2 Precordial pain; R06.02 Shortness of breath | CPT/HCPCS: 77063; 77067; 93005; 99212 ==

== ENCOUNTER → 2024-02-11 12:45 | Outpatient (BNV) | payer MEDICAID, SELFPAY | PROVIDERS: PCP General Practice; Visit Provider Radiology Diagnostic Radiology | DX: Z12.31 Encounter for screening mammogram for malignant neoplasm of breast (principal) | CPT/HCPCS: 77063; 77067 ==

== ENCOUNTER 2024-02-11 14:11 | Outpatient (AMB) | payer MEDICAID, SELFPAY ==
[2024-02-11 14:22] VITALS: BP 120/72; PULSE 88; BMI 29.5
--- NOTE | 2024-02-11 14:22 | A.OFFVIS_ITS ---
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 [employer] Required: No Accompanied by: Self / Same As Patient Allergies No Known Allergies [No Known Allergies*] Allergy (Verified 04/27/23 23:59) Medication List - Last Reconciled 02/11/24 by Jacky Jerez MD albuterol sulfate 90 mcg/actuation (Proventil HFA) 2 puffs inhalation Q4-6H PRN albuterol sulfate 2.5 mg inhalation TID atorvastatin 1 tab PO BEDTIME baclofen 5 mg PO BID benzonatate 100 mg PO BID PRN 7 days bisacodyl (Dulcolax (bisacodyl)) 10 mg (2 x 5 mg) PO ONCE 1 day cholecalciferol (vitamin D3) 1 tab PO DAILY clonidine HCl 0.2 mg PO BEDTIME doxycycline hyclate 100 mg PO BID 7 days escitalopram oxalate (Lexapro) 1 tab PO BEDTIME lidocaine 5% (Lidoderm) 1 patch topical DAILY lorazepam 1 tab PO BID PRN multivitamin 1 tab PO QAM nebulizer and compressor (Proneb Max Compressor-LC Plus) As directed pantoprazole 40 mg PO DAILY peg [id number] 1-0.2-0.2 % (Artificial Tears ([id number])) 1 drp ophthalmic (eye) TID polyethylene glycol 3350 (Miralax) 238 grams PO ONCE triamcinolone acetonide 0.025% 1 appl topical BID HPI Comments Details: Jw has been referred for evaluation of chest pain. No previous cardiac issues like coronary disease, myocardial infarction or cardiomyopathy extra. She states that she is getting pain in the left upper chest/shoulder area. Can happen any time. With or without exertion. It seems to go down the left arm. Not entirely clear if it is musculoskeletal versus anginal. Seems more towards musculoskeletal type. Otherwise, she states that she had to start using inhalers recently as she is feeling short of breath. She has been referred to evaluate for cardiac etiology for her symptoms. [facility] Medical History History of anemia History of depression Anxiety Bipolar disorder Panic attacks Surgical History Hx of hand surgery Hx of dilation and curettage History of endometrial ablation History of Family History Maternal Grandmother Uterine cancer Social History Household Members: Spouse and Children Are you a primary ambulatory care coordinator to a significant other at home: No Do you presently have visiting nurse or other home services: No Alcohol intake: current Alcohol intake frequency: holidays/special occasions only Patient Tobacco Use Status: Never used Tobacco Current occupational status: disabled Sexual orientation: Straight/Heterosexual Gender identity: Female Female Reproductive History Menstrual Age of Menarche: 12 Review of Systems Const Denies chills, Denies fatigue, Denies fever(s), Denies frequent falls, Denies weakness, Denies weight gain and Denies weight loss ENT Denies dizziness Card Denies chest pain, Denies leg edema, Denies lightheadedness, Denies palpitations, Reports dyspnea, Reports dyspnea on exertion and Reports orthopnea Resp Reports cough, Reports dyspnea and Reports dyspnea on exertion GI Denies bloating and Denies change in bowel habits Musc Reports muscle weakness, Reports numbness and Reports tingling Neuro Denies dizziness, Denies frequent falls, Reports numbness, Reports tingling and Denies weakness Endo Denies fatigue and Denies palpitations Physical Exam Vital Signs: Last Vital Signs Pulse 88 02/11/24 14:22 BP 120/72 02/11/24 14:22 BMI result Body Mass Index 29.5 Const General: comfortable and no acute distress Orientation/consciousness: patient oriented x3 HEENT Other: Unremarkable Head: Yes normal to inspection Neck Neck: Yes normal visual inspection Chest Chest palpation & inspection: normal inspection of the chest Resp Auscultation: clear to auscultation bilaterally Cardio Palpation: normal PMI Heart sounds: S1 normal heart sound present, S2 normal heart sound present, no gallops, no murmurs and no rubs GI Palpation (GI): Soft to palpation Back/Spine/Pelvis Other: unremarkable Skin General skin exam: no rashes or lesions noted Neuro General: patient oriented x3 Extrem General: Yes normal to inspection Psych Mental Status: mental status grossly normal Office Procedures EKG Details: EKG with sinus rhythm at 88/Min; no significant ST-T changes and otherwise unremarkable; [place]. [id number], Complete Assessment & Plan Assessment & Plan (1) Precordial chest pain: Code(s): R07.2 - Precordial pain Category: Medical (2) SOB (shortness of breath): Code(s): R06.02 - Shortness of breath Category: Medical Plan Atypical sounding symptoms and no clear ischemic findings on EKG. In the echocardiogram, LVEF is 60-60%; mild diastolic dysfunction mild mitral regurgitation. May proceed with an exercise stress echocardiogram further evaluation. Orders: Orders CA echo stress exercise Today R07.2 - Precordial pain Coding Level of Care Code New Pt Level 3 (85832) Diagnoses Precordial chest pain R07.2 SOB (shortness of breath) R06.02 CPT Codes EKG - CPT: [id number], Complete ([id number])
== END 2024-02-11 14:44 | disposition home or self-care (01) ==
PROVIDERS: PCP Family Medicine; Visit Provider Internal Medicine
DX: R07.2 Precordial pain (principal); R06.02 Shortness of breath; I34.0 Nonrheumatic mitral (valve) insufficiency
CPT/HCPCS: 93010; 99213

== ENCOUNTER 2024-02-26 07:28 | Outpatient (REF) | payer MEDICAID, SELFPAY | END 2024-02-26 07:29 | disposition home or self-care (01) | LOC: HO.HOSX 07:28 | PROVIDERS: Visit Provider Orthopaedic Surgery | DX: Z13.89 Encounter for screening for other disorder (principal) ==

== ENCOUNTER 2024-03-02 10:33 | Outpatient (AMB) | payer MEDICAID, SELFPAY ==
[2024-03-02 11:37] VITALS: BMI 29.4
--- NOTE | 2024-03-02 11:37 | A.OFFVIS_ITS ---
Vital Signs 03/02/24 11:37 Height 5 ft 6 in Weight 182 lb BMI 29.4 Intake Visit Reasons: Acute pain of both knee Intake Note: Jw is a 58 year old female who presents with bilateral knee pains and giving way, left greater than right. She describes her left knee pain as sharp and severe in nature, 8/10. Most of the pain is along the medial aspect of her knees. She has tried Tylenol, anti-inflammatory medicines and topical creams which gave her minimal relief. Her symptoms have gotten worse over the last year in spite of continued non operative treatments. She has failed the last 6 weeks of conservative treatment. She states that her left knee will give out several times per day. Allergies No Known Allergies [No Known Allergies*] Allergy (Verified 03/02/24 11:43) Medication List - Last Reconciled 03/02/24 by Saad Herrera MD albuterol sulfate 90 mcg/actuation (Proventil HFA) 2 puffs inhalation Q4-6H PRN albuterol sulfate 2.5 mg inhalation TID atorvastatin 1 tab PO BEDTIME baclofen 5 mg PO BID benzonatate 100 mg PO BID PRN 7 days bisacodyl (Dulcolax (bisacodyl)) 10 mg (2 x 5 mg) PO ONCE 1 day cholecalciferol (vitamin D3) 1 tab PO DAILY clonidine HCl 0.2 mg PO BEDTIME doxycycline hyclate 100 mg PO BID 7 days escitalopram oxalate (Lexapro) 1 tab PO BEDTIME lidocaine 5% (Lidoderm) 1 patch topical DAILY lorazepam 1 tab PO BID PRN multivitamin 1 tab PO QAM nebulizer and compressor (Proneb Max Compressor-LC Plus) As directed pantoprazole 40 mg PO DAILY peg [id number] 1-0.2-0.2 % (Artificial Tears ([id number])) 1 drp ophthalmic (eye) TID polyethylene glycol 3350 (Miralax) 238 grams PO ONCE triamcinolone acetonide 0.025% 1 appl topical BID PFSH Medical History History of anemia History of depression Anxiety Bipolar disorder Panic attacks Surgical History Hx of hand surgery Hx of dilation and curettage History of endometrial ablation History of Family History Maternal Grandmother Uterine cancer Social History Household Members: Spouse and Children Are you a primary healthcare financial analyst to a significant other at home: No Do you presently have visiting nurse or other home services: No Alcohol intake: current Alcohol intake frequency: holidays/special occasions only Patient Tobacco Use Status: Never used Tobacco Current occupational status: disabled Sexual orientation: Straight/Heterosexual Gender identity: Female Female Reproductive History Menstrual Age of Menarche: 12 Physical Exam Vital Signs: BMI result Body Mass Index 29.4 Const Other: Well-nourished well-developed very friendly female awake alert and oriented x3 in no acute distress Extrem Other: Bilateral lower extremity examination shows good capillary refill, no skin lesions noted, normal sensation light touch Bilateral knee examination shows minimal effusions, tenderness along her medial joint lines, positive Escobar's test, no instability Results Reviewed Results Reviewed: Standing full weight-bearing x-rays of the patient's bilateral knee show mild joint space narrowing, no acute bony abnormalities Assessment & Plan Assessment & Plan (1) Left knee pain: Code(s): M25.562 - Pain in left knee Category: Medical Plan Ms. Suarez presents with progressively worsening bilateral knee pain and mechanical symptoms, left greater than right, most likely due to tearing of her medial menisci. Thus, I will send her for an MRI of her left knee to further evaluate the status of her medial meniscus. I will see her back once the MRI is completed to discuss the findings and treatment options. She will continue with her activity modifications in the meantime. Feel free to call me at any time should questions regarding her orthopedic management arise. I spent 22 minutes in reviewing the patient's records and imaging studies, seeing the patient and documenting in the medical record. Orders: Orders MR knee LT wo con Today M25.562 - Pain in left knee XR knee RT 3V Today M25.561 - Pain in right knee Coding Level of Care Code New Pt Level 3 (86086) Diagnoses Left knee pain M25.562
== END 2024-03-02 12:03 | disposition home or self-care (01) ==
PROVIDERS: PCP General Practice; Visit Provider Orthopaedic Surgery
DX: M25.562 Pain in left knee (principal); M25.561 Pain in right knee
CPT/HCPCS: 99203

== ENCOUNTER 2024-03-02 10:33 | Outpatient (REF) | payer MEDICAID, SELFPAY ==
--- NOTE | ~2024-03-02 | XR_ITS ---
EXAMINATION: XR KNEE, RIGHT CLINICAL INFORMATION: Pain in the right knee COMPARISON: X-rays of the right knee July 2018. MRI of the right knee October 2018 TECHNIQUE: Four views of the right knee. FINDINGS: No fracture or joint effusion. Alignment is anatomic. Joint spaces are maintained. No abnormal soft tissue calcification. XR/XR knee RT 3V IMPRESSION: Normal right knee.
== END 2024-03-02 10:34 | disposition home or self-care (01) ==
LOC: HO.HOSX 10:33
PROVIDERS: PCP General Practice; Visit Provider Orthopaedic Surgery
DX: M25.561 Pain in right knee (principal); M25.562 Pain in left knee
CPT/HCPCS: 73562; 99202

== ENCOUNTER → 2024-03-03 10:29 | Outpatient (REF) | payer MEDICAID, SELFPAY ==
--- NOTE | 2024-03-03 10:31 | CA_ITS ---
Acquisition Time: 2024-03-03 10:56:47 Total Exercise Time: 00:01:31 Test Indications: CP, SOB Medications: SEE H Protocol: RASHMI Max HR: 139 BPM 84% of Pred: 164 BPM Max BP: 122/078 mmHG Max Work Load: 3.3 METS Exercise stress test exercise 1 min 31 sec of Rashmi protocol achieving 83% MPHR, with 8/10 chest pressure and right arm heaviness/numbness, without arrhythmias, without EKG changes at achieved workload. Chest pressure 2-3/10 at 2.5 min recovery. Echo images obtained by tech at rest and immediately post peak exercise. Definity contrast used. Test reviewed with Dr. Chaudhary. Referred By: Jacky Jerez Overread By: Luz Maria Curry
== END ==
LOC: HO.CARD 10:29
PROVIDERS: PCP General Practice; Visit Provider Internal Medicine
DX: R07.2 Precordial pain (principal)
CPT/HCPCS: 93350; Q9957

== ENCOUNTER → 2024-03-03 10:31 | Outpatient (BNV) | payer MEDICAID, SELFPAY | PROVIDERS: PCP General Practice; Visit Provider Nurse Practitioner | DX: R07.9 Chest pain, unspecified (principal) | CPT/HCPCS: 93016; 93018; 93350; 93352 ==

== ENCOUNTER 2024-03-16 11:11 | Outpatient (REF) | payer MEDICAID, SELFPAY ==
[2024-03-16 14:18] LABS: Anion Gap 12 (12-20); Blood Urea Nitrogen 13 mg/dL (9-16); Calcium 9.5 mg/dL (8.4-10.2); Carbon Dioxide 24 mmol/L (22-29); Chloride 107 mmol/L (96-108); Estimated Glomerular Filt Rate > 60; Glucose Random 106 mg/dL (60-115); Potassium 4.4 mmol/L (3.3-5.1); Sodium 139 mmol/L (135-145)
== END 2024-03-16 11:12 | disposition home or self-care (01) ==
LOC: HO.HHCL 11:11
PROVIDERS: Visit Provider Internal Medicine
DX: R07.2 Precordial pain (principal); R06.02 Shortness of breath
CPT/HCPCS: 36415; 80048

== ENCOUNTER 2024-04-17 11:29 | Outpatient (REF) | payer MEDICAID, SELFPAY ==
--- NOTE | ~2024-04-17 | MR_ITS ---
EXAMINATION: MR KNEE WITHOUT CONTRAST, LEFT CLINICAL INFORMATION: Pain the left knee with instability. COMPARISON: Radiograph dated 01/23/2024. TECHNIQUE: MRI of the knee without contrast was performed using routine sequences on a high-field scanner. FINDINGS: MENISCI: Medial Meniscus: Intact. Lateral Meniscus: Intact. LIGAMENTS: Cruciate: Intact. Collateral: Intact. EXTENSOR MECHANISM: Quadriceps and patellar tendons are intact. No tears. ARTICULAR CARTILAGE/BONE: Patellofemoral Compartment: Transverse chondral fissures are evident at the patella. No chondral defects. At the inferior aspect of the central trochlea and lateral trochlear facet, there is a 1 x 1 cm area of high-grade cartilage loss with underlying cortical irregularity and subcortical edema/cystic change. Medial Compartment: Normal. Lateral Compartment: Normal. JOINT FLUID AND BURSAE: Trace fluid within the joint, within normal limits mild subcutaneous edema is edema at the knee anteromedially. Trace fluid in the expected location of a Greenberg's cyst without significant distention. MR/MR knee LT wo con IMPRESSION: 1. Mild patellofemoral compartment osteoarthritis with a 1 x 1 cm area of high-grade cartilage loss at the inferior aspect of the central trochlea and lateral trochlear facet. 2. Intact ligaments and menisci.
== END 2024-04-17 11:30 | disposition home or self-care (01) ==
LOC: HO.MRI 11:29
PROVIDERS: PCP General Practice; Visit Provider General Practice
DX: M17.12 Unilateral primary osteoarthritis, left knee (principal)
CPT/HCPCS: 73721

== ENCOUNTER 2024-04-22 13:08 | Outpatient (REF) | payer MEDICAID, SELFPAY ==
[2024-04-22 14:32] LABS: Erythrocyte Sedimentation Rate 19 MM/HR (0-20)
[2024-04-22 14:54] LABS: Rheumatoid Factor < 13.0 IU/mL (<15.0)
[2024-04-23 11:38] LABS: Complement C3 113 mg/dL (83-193)
[2024-04-23 22:28] LABS: Antibody to SS-A Antigen <1.0 NEG AI (<1.0 NEG); Antibody to SS-B Antigen <1.0 NEG AI (<1.0 NEG)
[2024-04-28 11:49] LABS: IgA 256 mg/dL (47-310); IgG 1187 mg/dL (600-1640); IgM 184 mg/dL (50-300)
[2024-04-28 16:08] LABS: DNAds, Crithidia Antibody Negative (Negative)
[2024-04-30 16:13] LABS: Anti Nuclear Antibody Screen NEGATIVE (NEGATIVE)
== END 2024-04-22 13:09 | disposition home or self-care (01) ==
LOC: HO.LAB 13:08
PROVIDERS: PCP General Practice; Visit Provider Psychiatry & Neurology Neurology
DX: M35.01 Sjogren syndrome with keratoconjunctivitis (principal)
CPT/HCPCS: 36415; 82784; 85652; 86038; 86160; 86235; 86255; 86334; 86431

== ENCOUNTER 2024-05-06 12:45 | Outpatient (AMB) | payer MEDICAID, SELFPAY ==
[2024-05-06 12:51] VITALS: BMI 29.4
--- NOTE | 2024-05-06 12:51 | A.OFFVIS_ITS ---
Vital Signs 05/06/24 12:51 Height 5 ft 6 in Weight 182 lb BMI 29.4 Intake Visit Reasons: Bilateral knee pain Intake Note: Jw is a 58 yo female who presents with complaints of progressively worsening bilateral knee pains and giving way. The patient states that her pains and symptoms of instability have gotten worse over the last year. Most of the pain is along the medial aspect of her knees. She has tried physical therapy exercises which aggravated her symptoms. She has also tried Tylenol. She was not able to tolerate Motrin because it upset her stomach. . Allergies No Known Allergies [No Known Allergies*] Allergy (Verified 05/06/24 12:52) Medication List - Last Reconciled 05/06/24 by Saad Herrera MD albuterol sulfate 90 mcg/actuation (Proventil HFA) 2 puffs inhalation Q4-6H PRN albuterol sulfate 2.5 mg inhalation TID atorvastatin 1 tab PO BEDTIME baclofen 5 mg PO BID benzonatate 100 mg PO BID PRN 7 days bisacodyl (Dulcolax (bisacodyl)) 10 mg (2 x 5 mg) PO ONCE 1 day celecoxib (Celebrex) 200 mg PO DAILY PRN cholecalciferol (vitamin D3) 1 tab PO DAILY clonidine HCl 0.2 mg PO BEDTIME doxycycline hyclate 100 mg PO BID 7 days escitalopram oxalate (Lexapro) 1 tab PO BEDTIME lidocaine 5% (Lidoderm) 1 patch topical DAILY lorazepam 1 tab PO BID PRN multivitamin 1 tab PO QAM nebulizer and compressor (Proneb Max Compressor-LC Plus) As directed pantoprazole 40 mg PO DAILY peg [id number] 1-0.2-0.2 % (Artificial Tears (pg400 -hypromell-glycerin)) 1 drp ophthalmic (eye) TID polyethylene glycol 3350 (Miralax) 238 grams PO ONCE triamcinolone acetonide 0.025% 1 appl topical BID PFSH Medical History History of anemia History of depression Anxiety Bipolar disorder Panic attacks Surgical History Hx of hand surgery Hx of dilation and curettage History of endometrial ablation History of Family History Maternal Grandmother Uterine cancer Social History Household Members: Spouse and Children Are you a primary animal caretaker supervisor to a significant other at home: No Do you presently have visiting nurse or other home services: No Alcohol intake: current Alcohol intake frequency: holidays/special occasions only Patient Tobacco Use Status: Never used Tobacco Current occupational status: disabled Sexual orientation: Straight/Heterosexual Gender identity: Female Female Reproductive History Menstrual Age of Menarche: 12 Physical Exam Vital Signs: BMI result Body Mass Index 29.4 Const Other: Well-nourished well-developed very friendly female awake alert and oriented x3 in no acute distress Extrem Other: Bilateral lower extremity examination shows good capillary refill, no skin lesions noted, normal sensation light touch Bilateral knee examination shows minimal effusions, minimal crepitus with range of motion, negative Escobar's test, slightly positive patellar apprehension test Results Reviewed Results Reviewed: MRI of the patient's left knee shows mild degenerative changes most significant in the patellofemoral joint, no evidence of meniscus or ligament tearing Assessment & Plan Assessment & Plan (1) Pain in both knees: Code(s): M25.561 - Pain in right knee; M25.562 - Pain in left knee Plan Ms. Erick Harris presents with bilateral knee pains and mechanical symptoms most likely due to patellar instability. I had a lengthy discussion with the patient regarding the treatment options. She wishes to hold off on surgery for as long as possible. I agree with this plan. I did have her fitted for bilateral knee braces. I do feel that the knee braces are a medical necessity to help with her symptoms of instability. The braces will help prevent future falls. I also gave her a prescription for Celebrex. She will follow up with me on an as-needed basis should her symptoms not plateau at an unacceptable level over the next few months. Feel free to call me at any time should questions regarding her orthopedic management arise. I spent 20 minutes in reviewing the patient's records and imaging studies, seeing the patient and documenting in the medical record. Medications: New celecoxib (Celebrex) 200 mg PO DAILY PRN 30 caps 2RF pain Coding Level of Care Code Est Pt Level 3 (37245) Diagnoses Pain in both knees M25.561; M25.562
== END 2024-05-06 13:00 | disposition home or self-care (01) ==
PROVIDERS: PCP General Practice; Visit Provider Orthopaedic Surgery
DX: M25.561 Pain in right knee (principal); M25.562 Pain in left knee
CPT/HCPCS: 99214

== ENCOUNTER → 2024-05-06 12:45 | Outpatient (BNVA) | payer MEDICAID, SELFPAY | PROVIDERS: PCP General Practice; Visit Provider Orthopaedic Surgery | DX: M25.561 Pain in right knee (principal); M25.562 Pain in left knee | CPT/HCPCS: 99212 ==

== ENCOUNTER 2024-06-03 09:13 | Outpatient (REF) | payer MEDICAID, SELFPAY ==
--- NOTE | ~2024-06-03 | MR_ITS ---
EXAMINATION: MR BRAIN WITHOUT AND WITH CONTRAST CLINICAL INFORMATION: 58-year-old with chronic daily headaches. COMPARISON: None available. TECHNIQUE: Multiplanar, multisequence MRI of the brain was obtained before and after the intravenous administration of 7.5 mL Gadavist. FINDINGS: BRAIN VOLUME: Within normal limits within the limitations of qualitative assessment. STRUCTURAL: No malformations. BRAIN AND MENINGES: DWI sequence demonstrates no restricted diffusion to suggest acute or subacute cerebral ischemia. There is a 3 mm left frontal subcortical FLAIR signal hyperintensity with no abnormal enhancement which is a nonspecific finding. 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 Remainder of the brain is normal in morphology and signal intensity. Gradient refocused imaging demonstrates no abnormal susceptibility-weighted signal loss to suggest hemorrhage, hemosiderin staining or abnormal mineralization. No extra-axial fluid collections, intracranial mass lesions, space-occupying process, mass effect or pathologic intracranial enhancement are identified. VENTRICLES AND SUBARACHNOID SPACES: The ventricular system and subarachnoid spaces are within normal range; there is no hydrocephalus. ORBITAL STRUCTURES: The visualized orbital structures are grossly unremarkable within the limitations of the study. VASCULAR: Signal voids are noted in the visualized major intracranial vessels. OSSEOUS STRUCTURES, SINUSES/MASTOIDS, EXTRACRANIAL SOFT TISSUES: There is diffusely hypointense marrow signal throughout the calvarium, relatively sparing the bony skull base which appears to correspond to sclerotic changes of the diploic space noted on retrospective review of the previous CT head on 01/09/2019, which is a nonspecific finding. MR/MR head/brain wo/w con IMPRESSION: 1. No acute intracranial process. No intracranial mass lesion, pathologic enhancement, space-occupying process, mass effect or hydrocephalus. 2. 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 If clinically warranted, CT angiography of the neck and head may be of additional value. 3. Small left frontal subcortical white matter T2 hyperintensity which is nonspecific. 4. Diffusely hypointense marrow signal throughout the calvarium which appears to correspond to sclerotic changes of the diploic space noted on retrospective review of the previous CT head on 01/09/2019, which is a nonspecific finding. Electronically signed by: Konstantin Clemente MD 06/22/2024 05:51 PM EDT
[2024-06-03] MEDS: gadobutroL 7.5 ML VIAL IVPUSH (10:03)
== END 2024-06-03 09:14 | disposition home or self-care (01) ==
LOC: HO.MRI 09:13
PROVIDERS: PCP General Practice; Visit Provider Psychiatry & Neurology Neurology
DX: R51.9 Headache, unspecified (principal)
CPT/HCPCS: 70553; A9585

== ENCOUNTER 2024-06-22 12:42 | Outpatient (AMB) | payer MEDICAID, SELFPAY ==
[2024-06-22 13:20] VITALS: BMI 29.2
--- NOTE | 2024-06-22 13:20 | A.OFFVIS_ITS ---
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 Complaining of urinary frequency, and leakage of urine upon sneezing coughing and lifting heavy object in addition to urgency and urge incontinence Last Pap/HPV was in 10/04 Last Mammogram was BI-RADS 1 in 02/04 Previous screening Colonoscopy PFS Medical History History of anemia History of depression Anxiety Bipolar disorder Panic attacks Surgical History Hx of hand surgery Hx of dilation and curettage History of endometrial ablation History of Family History Maternal Grandmother Uterine cancer Social History Household Members: Spouse and Children Are you a primary care connector to a significant other at home: No Do you presently have visiting nurse or other home services: No Alcohol intake: current Alcohol intake frequency: holidays/special occasions only Patient Tobacco Use Status: Never used Tobacco Current occupational status: disabled Sexual orientation: Straight/Heterosexual Gender identity: Female Female Reproductive History Menstrual Age of Menarche: 12 Date of last pap smear: 10/02/22 Date of Mammogram: 02/11/24 Review of Systems Const All systems reviewed & are unremarkable except as noted in HPI and below Card Reports as per HPI Resp Reports as per HPI GI Reports as per HPI and Reports no additional complaints Reports as per HPI Physical Exam Vital Signs: BMI result Body Mass Index 29.2 Const General: cooperative, healthy appearing and comfortable Chest Chest palpation & inspection: normal inspection of the chest and normal palpation of entire chest wall Breast/axilla inspection: normal inspection of the breasts and normal inspection of the axillae Breast/axilla palpation: normal palpation of the breasts, normal palpation of the axillae and no axillary lymphadenopathy Resp Effort & Inspection: normal respiratory effort Auscultation: clear to auscultation bilaterally Percussion: percussion normal Cardio Palpation: normal PMI Rate: regular rate Rhythm: regular rhythm Heart sounds: no murmurs and no rubs Peripheral pulses: Peripheral pulses 2+ throughout GI Inspection: Yes normal to inspection Palpation (GI): Soft to palpation, nontender, no guarding, not rigid and No hepatosplenomegaly present Percussion: Yes normal to percussion Auscultation: normal bowel sounds Rectal Exam - Female: deferred General: Yes bladder normal to palpation External Female Exam: No lesion Speculum Exam - Vagina: normal appearance of the vagina, normal palpation, normal vaginal discharge and not erythematous Speculum Exam - Cervix: normal appearance of the cervix and normal palpation Bimanual exam- vagina & uterus: normal bimanual exam, normal palpation, uterine size normal, bladder normal to palpation, consistency normal and normal palpation Bimanual Exam- Adnexa, other: normal adnexae, no masses and no tenderness Assessment & Plan Assessment & Plan (1) Well woman exam: Code(s): Z01.419 - Encounter for gynecological examination (general) (routine) without abnormal findings Category: Medical Plan: Co testing not indicated this year. Counseled the patient about the recommended dietary allowance of 1200 mg of Calcium & 600 IU of vitamin D. Instructions given the patient to schedule next screening mammogram in 02/05. The patient was referred to GI for screening colonoscopy . The patient was instructed to perform monthly self-breast exams and schedule annual exam in a year. All questions answered and the patient verbalized understanding. (2) Urine incontinence: Code(s): R32 - Unspecified urinary incontinence Category: Medical Plan: Discussed with the patient the different types of Urine incontinence, stress urinary incontinence, intrinsic sphincter deficiency, overactive bladder and its work up. We will refer to Urology. All questions answered, the patient verbalized understanding. Orders: Referrals Urology Referral R32 - Unspecified urinary incontinence Gastroenterology Referral Z12.11 - Encounter for screening for malignant neoplasm of colon Coding Level of Care Code Est Pt Prev Care 40-64y(21447) Diagnoses Well woman exam Z01.419 Urine incontinence R32
== END 2024-06-22 13:54 | disposition home or self-care (01) ==
PROVIDERS: PCP Family Medicine; Referring Provider Family Medicine; Visit Provider Obstetrics & Gynecology
DX: Z01.419 Encounter for gynecological examination (general) (routine) without abnormal findings (principal); R32 Unspecified urinary incontinence
CPT/HCPCS: 99396

== ENCOUNTER → 2024-06-22 12:42 | Outpatient (BNVA) | payer MEDICAID, SELFPAY | PROVIDERS: PCP Family Medicine; Visit Provider Obstetrics & Gynecology | DX: Z01.419 Encounter for gynecological examination (general) (routine) without abnormal findings (principal); R32 Unspecified urinary incontinence | CPT/HCPCS: 99396 ==

== ENCOUNTER 2024-07-01 12:00 | Outpatient (AMB) | payer MEDICAID, SELFPAY ==
--- NOTE | 2024-07-01 12:53 | A.OFFVIS_ITS ---
Intake Visit Reasons: Low back pain Intake Note: Jw is a 58 year old female who presents with complaints of progressively worsening low back pain which radiates down both of her legs to both of her feet. The patient states that her symptoms have gotten worse over the last year in spite of continued non operative treatments. She describes her back pain as sharp and severe in nature. The patient states that she has gone to the emergency room twice recently because of the pain which radiates down her legs. The patient also states that she walks with a limp because of weakness in her legs. She has failed the last 6 weeks of conservative treatment. She has tried Tylenol, anti-inflammatory medicines and muscle relaxants which gave her minimal relief. She has done physical therapy which aggravated her pain. Allergies No Known Allergies [No Known Allergies*] Allergy (Verified 07/01/24 13:01) Medication List - Last Reconciled 07/01/24 by Saad Herrera MD albuterol sulfate 90 mcg/actuation (Proventil HFA) 2 puffs inhalation Q4-6H PRN albuterol sulfate 2.5 mg inhalation TID atorvastatin 1 tab PO BEDTIME baclofen 5 mg PO BID benzonatate 100 mg PO BID PRN 7 days bisacodyl (Dulcolax (bisacodyl)) 10 mg (2 x 5 mg) PO ONCE 1 day celecoxib (Celebrex) 200 mg PO DAILY PRN cholecalciferol (vitamin D3) 1 tab PO DAILY clonidine HCl 0.2 mg PO BEDTIME doxycycline hyclate 100 mg PO BID 7 days escitalopram oxalate (Lexapro) 1 tab PO BEDTIME lidocaine 5% (Lidoderm) 1 patch topical DAILY lorazepam 1 tab PO BID PRN multivitamin 1 tab PO QAM nebulizer and compressor (Proneb Max Compressor-LC Plus) As directed pantoprazole 40 mg PO DAILY peg [id number] 1-0.2-0.2 % (Artificial Tears ([id number])) 1 drp ophthalmic (eye) TID polyethylene glycol 3350 (Miralax) 238 grams PO ONCE triamcinolone acetonide 0.025% 1 appl topical BID PFSH Medical History History of anemia History of depression Anxiety Bipolar disorder Panic attacks Surgical History Hx of hand surgery Hx of dilation and curettage History of endometrial ablation History of Family History Maternal Grandmother Uterine cancer Social History Household Members: Spouse and Children Are you a primary health care social worker to a significant other at home: No Do you presently have visiting nurse or other home services: No Alcohol intake: current Alcohol intake frequency: holidays/special occasions only Patient Tobacco Use Status: Never used Tobacco Current occupational status: disabled Sexual orientation: Straight/Heterosexual Gender identity: Female Female Reproductive History Menstrual Age of Menarche: 12 Physical Exam Const Other: Well-nourished well-developed very friendly female awake alert and oriented x3 in no acute distress Back/Spine/Pelvis Other: Low back examination shows bilateral paraspinal muscle tenderness, pain with range of motion, positive straight leg raise tests bilaterally at 70 degrees, 4/5 strength with testing of her bilateral hip flexors and knee extensors Assessment & Plan Assessment & Plan (1) Low back pain radiating to both legs: Code(s): M54.50 - Low back pain, unspecified; M79.604 - Pain in right leg; M79.605 - Pain in left leg Category: Medical Plan Jw presents with progressively worsening low back pain which radiates down both of her legs as well as associated bilateral leg weakness possibly due to lumbar stenosis or a disc herniation. Thus, I will send the patient for an MRI of her lumbar spine for further evaluation. I will see her back once the MRI is completed to discuss the findings and treatment options. She will contact me prior to that time should her symptoms worsen in any way. Feel free to call me at any time should questions regarding her orthopedic management arise. I spent 21 minutes in reviewing the patient's records and imaging studies, seeing the patient and documenting in the medical record. Orders: Orders MR lumbar spine wo con Today M54.50 - Low back pain, unspecified, M79.604 - Pain in right leg, M79.605 - Pain in left leg Coding Level of Care Code Est Pt Level 3 (73070) Complex EM visit Add On G2211 Diagnoses Low back pain radiating to both legs M54.50; M79.604; M79.605
== END 2024-07-01 13:13 | disposition home or self-care (01) ==
PROVIDERS: PCP General Practice; Referring Provider General Practice; Visit Provider Orthopaedic Surgery
DX: M54.50 Low back pain, unspecified (principal); M79.604 Pain in right leg; M79.605 Pain in left leg
CPT/HCPCS: 99213

== ENCOUNTER → 2024-07-01 12:00 | Outpatient (BNVA) | payer MEDICAID, SELFPAY | PROVIDERS: PCP General Practice; Visit Provider Orthopaedic Surgery | DX: M54.50 Low back pain, unspecified (principal); M79.604 Pain in right leg; M79.605 Pain in left leg | CPT/HCPCS: 99212 ==

== ENCOUNTER → 2024-07-26 18:50 | Outpatient (BNV) | payer MEDICAID, SELFPAY | PROVIDERS: PCP General Practice; Visit Provider Radiology Diagnostic Radiology | DX: M54.50 Low back pain, unspecified (principal) | CPT/HCPCS: 72148 ==

== ENCOUNTER 2024-07-26 18:51 | Outpatient (REF) | payer MEDICAID, SELFPAY ==
--- NOTE | ~2024-07-26 | MR_ITS ---
EXAMINATION: MR LUMBAR SPINE WITHOUT CONTRAST CLINICAL INFORMATION: Low back pain. Radiates down both posterior legs, worse on the right. Patient fell off horse when younger. COMPARISON: No prior. TECHNIQUE: Multiplanar multisequence MR imaging of the lumbar spine was done without IV contrast. Examination was performed on a 1.5 Ankita Siemens magnet, utilizing standard sequences. FINDINGS: CORONAL ALIGNMENT: -Minimal left convex scoliosis, possibly positional. SAGITTAL ALIGNMENT: -Normal lordosis. -There is a 2 mm degenerative retrolisthesis of L2 on L3. -Trace degenerative retrolisthesis L3 on L4. -Sagittal Alignment otherwise anatomic. LUMBOSACRAL JUNCTION: -Normal. There are 5 [id number] lumbar-type vertebral bodies. VERTEBRAL BODIES/BONE MARROW: -There is no compression deformity or evidence of acute fracture. No gross bone marrow edema, or abnormal infiltrating bone marrow signal. -Of note, marrow signal somewhat diffusely hypointense on T1-weighted imaging, a nonspecific finding which most likely relates to hematopoietic marrow. This can be seen in smokers as well. DISCS: -Moderate loss of disc height and signal at L4-5 and L5-S1, with similar but slightly milder changes at L2-3. Mild disc degeneration L3-4. -Discs above the L2 level are preserved. SPINAL CANAL: -No abnormal developmental findings. CONUS MEDULLARIS: -Terminates at L1. Morphology and signal is normal. INTRADURAL NERVE ROOTS: -Normal in appearance. -No masses or clumping seen. Axial Disc Space Images: T12-L1: No central canal or neural foraminal narrowing. L1-L2: No central canal or neural foraminal narrowing. L2-L3: Shallow diffuse disc bulge present, which mildly indents upon the ventral thecal sac but does not contact nerve roots. Minimal hypertrophic facet changes bilaterally with mild posterior ligamentous thickening/infolding. There is mild central canal narrowing, mild bilateral subarticular recess narrowing, and mild left greater than right neural foraminal narrowing. L3-L4: There is a shallow diffuse disc bulge which is slightly more prominent right lateral and right foraminal. This indents upon the ventral thecal sac, approaches but does not definitively contact the traversing right L4 roots. There are mild hypertrophic facet changes bilaterally, with mild posterior ligamentous thickening/infolding. Findings result in mild central canal stenosis, mild to moderate right subarticular recess stenosis, and mild bilateral neural foraminal stenosis. L4-L5: There is a broad-based disc bulge present concentrically involving both foraminal zones right greater than left, with diffuse annular fissuring. This indents upon the ventral thecal sac, but does not contact nerve roots. There are mild hypertrophic degenerative facet changes with posterior ligamentous infolding/thickening. Combination of findings is resulting in mild central canal stenosis, mild right greater than left subarticular recess stenosis without mass effect upon the traversing L5 roots. There is mild bilateral right greater than left neural foraminal narrowing. L5-S1: There is a diffuse disc bulge present with central annular fissuring, indenting upon the ventral thecal sac but not contacting nerve roots. There is mild left ureteral lipomatosis present in the subarticular regions bilaterally. Mild degenerative facet changes bilaterally. There is mild central canal narrowing, no significant subarticular recess narrowing, and mild to moderate bilateral neural foraminal narrowing. 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 PARAVERTEBRAL AND INCLUDED EXTRASPINAL SOFT TISSUES: -Normal. MR/MR lumbar spine wo con IMPRESSION: 1. Relatively mild lumbar spondylosis as detailed above. There is no significant central canal, lateral recess, or neural foraminal narrowing or nerve root impingement at any level. 2. Degenerative disc disease most prominent at L2-3, L4-5 and L5-S1. 3. Subtle degenerative retrolisthesis L2-3 and L3-4. 4. Additional ancillary findings as detailed in the body of the report. Electronically signed by: Luis Curry MD 09/24/2024 09:53 AM JOSÉ MIGUEL
== END 2024-07-26 18:52 | disposition home or self-care (01) ==
LOC: HO.MRI 18:51
PROVIDERS: PCP General Practice; Visit Provider Orthopaedic Surgery
DX: M54.50 Low back pain, unspecified (principal); M79.604 Pain in right leg; M79.605 Pain in left leg
CPT/HCPCS: 72148

== ENCOUNTER 2024-08-18 10:47 | Outpatient (REF) | payer MEDICAID, SELFPAY ==
[2024-08-18 16:52] LABS: Urine Cytology See Pathology rpt
== END 2024-08-18 10:48 | disposition home or self-care (01) ==
LOC: HO.LNP 10:47
PROVIDERS: PCP Family Medicine; Visit Provider Nurse Practitioner Family
DX: N39.0 Urinary tract infection, site not specified (principal); R31.29 Other microscopic hematuria; F17.290 Nicotine dependence, other tobacco product, uncomplicated; N39.46 Mixed incontinence; R35.1 Nocturia; R39.15 Urgency of urination; R35.0 Frequency of micturition
CPT/HCPCS: 81003; 88112; 99212

== ENCOUNTER → 2024-08-18 10:47 | Outpatient (AMB) | payer MEDICAID, SELFPAY ==
--- NOTE | 2024-08-18 10:56 | A.OFFVIS_ITS ---
Intake Visit Reasons: urinary incontinence Intake Note: Patient is present for URINARY INCONTINENCE Urology Medication:NONE Antibiotic Allergy:NONE Blood Thinner:NONE Kindergartners Helper Required: No Allergies No Known Allergies [No Known Allergies*] Allergy (Verified 08/18/24 11:31) Medication List - Last Reconciled 08/18/24 by POONAM Hendrix- albuterol sulfate 90 mcg/actuation (Proventil HFA) 2 puffs inhalation Q4-6H PRN albuterol sulfate 2.5 mg inhalation TID atorvastatin 1 tab PO BEDTIME baclofen 5 mg PO BID benzonatate 100 mg PO BID PRN 7 days bisacodyl (Dulcolax (bisacodyl)) 10 mg (2 x 5 mg) PO ONCE 1 day celecoxib (Celebrex) 200 mg PO DAILY PRN cholecalciferol (vitamin D3) 1 tab PO DAILY clonidine HCl 0.2 mg PO BEDTIME doxycycline hyclate 100 mg PO BID 7 days escitalopram oxalate (Lexapro) 1 tab PO BEDTIME lidocaine 5% (Lidoderm) 1 patch topical DAILY lorazepam 1 tab PO BID PRN multivitamin 1 tab PO QAM nebulizer and compressor (Proneb Max Compressor-LC Plus) As directed pantoprazole 40 mg PO DAILY peg [id number] 1-0.2-0.2 % (Artificial Tears ([id number])) 1 drp ophthalmic (eye) TID polyethylene glycol 3350 (Miralax) 238 grams PO ONCE triamcinolone acetonide 0.025% 1 appl topical BID HPI Comments Details: Jw is a pleasant 58 year old female patient of Dr. Brian who was accompanied by her at today's office visit. She has a past medical history of anemia, depression, anxiety, bipolar, and panic attacks. She presents to the office today as a new patient for ongoing lower urinary tract symptoms she has been experiencing. In discussion with the patient today she reports noting over the last few months approximately since the beginning of the summer she has been experiencing episodes of urge/stress incontinence as well as urinary frequency and urgency. She also reports episodes of nocturia up to 5 times per night. In office urinalysis results reviewed with the patient today trace microscopic hematuria noted otherwise within normal limits. We discussed at length potential causes of microscopic hematuria as well as lower urinary tract symptoms patient has been experiencing. When asked she does report history of cigar smoking in relation to her shinto. She reports smoking cigar s at least once a week on Tuesdays however sometimes it can be more than once a week. We discussed obtaining CT urogram for further assessment evaluation. We also discussed further treatment options for lower urinary tract symptoms patient has been experiencing to include pelvic floor therapy verses trial of medication and or both. She otherwise denies gross/visible hematuria, dysuria, foul smelling urine, changes to urinary stream, flank pain, fever, and or chills. She otherwise offers no other issues or concerns at this time. [facility] Medical History History of anemia History of depression Anxiety Bipolar disorder Panic attacks Surgical History Hx of hand surgery Hx of dilation and curettage History of endometrial ablation History of Family History Maternal Grandmother Uterine cancer Social History Household Members: Spouse and Children Are you a primary care technician to a significant other at home: No Do you presently have visiting nurse or other home services: No Alcohol intake: current Alcohol intake frequency: holidays/special occasions only Patient Tobacco Use Status: Never used Tobacco Current occupational status: disabled Sexual orientation: Straight/Heterosexual Gender identity: Female Female Reproductive History Menstrual Age of Menarche: 12 Review of Systems Const All systems reviewed & are unremarkable except as noted in HPI and below Physical Exam Const General: cooperative, healthy appearing, comfortable, no acute distress, well developed, alert and awake Orientation/consciousness: patient oriented x3 Limitations: no limitations HEENT Head: Yes normal to inspection, Yes normocephalic and Yes atraumatic Ears: hearing grossly normal bilaterally Eyes General: appearance normal, both eyes and all related structures Neck Neck: Yes normal visual inspection and Yes trachea midline Chest Chest palpation & inspection: normal inspection of the chest Resp Effort & Inspection: normal respiratory effort and able to speak in complete sentences Cardio Rate: regular rate GI Inspection: Yes normal to inspection General: Yes no CVA tenderness Back/Spine/Pelvis Back: no CVA tenderness Skin General skin exam: no rashes or lesions noted Neuro General: patient oriented x3 Extrem General: Yes normal to inspection Psych Appearance: grossly normal and well kempt Mental Status: mental status grossly normal Speech and movement: Normal speech and movement present and Clear speech present Affect: normal affect Attitude: cooperative Thought process: Normal thought process present Thought content: Normal thought content present Insight: Fair insight present (Psych) Judgement: Fair judgement present (Psych) Results AMB Urinalysis, Automated UA Leukoctes 0 Kang/uL Last Edit by JA Xie on 08/18/24 11:07 UA Nitrite Negative Last Edit by JA Xie on 08/18/24 11:07 UA Urobilinogen 0.2 mg/dL Last Edit by JA Xie on 08/18/24 11:0 7 UA Protein 0 mg/dL Last Edit by JA Xie on 08/18/24 11:07 UA pH 6.0 Last Edit by JA Xie on 08/18/24 11:07 UA Blood 10 Francisco Javier/uL Last Edit by JA Xie on 08/18/24 11:07 UA Specific [place] 1.015 Last Edit by JA Xie on 08/18/24 11: 07 UA Ketone Negative Last Edit by JA Xie on 08/18/24 11:07 UA Bilirubin 0 mg/dL Last Edit by Aminata Kenney CCM on 08/18/24 11:07 UA Glucose 0 mg/dL Last Edit by JA Xie on 08/18/24 11:07 Results Reviewed Results Reviewed: Laboratory Last Values Urine pH (Auto) 6.0 08/18/24 11:06 Specific [place] (Auto) 1.015 08/18/24 11:06 Urine Protein (Auto) 0 mg/dL 08/18/24 11:06 Glucose (UA)(Auto) 0 mg/dL 08/18/24 11:06 Urine Ketones (Auto) Negative 08/18/24 11:06 Urine Blood (Auto) 10 Francisco Javier/uL 08/18/24 11:06 Urine Nitrite (Auto) Negative 08/18/24 11:06 Urine Bilirubin (Auto) 0 mg/dL 08/18/24 11:06 Urine Urobilinogen (Auto) 0.2 mg/dL 08/18/24 11:06 Leukocyte Esterase (Auto) 0 Kang/uL 08/18/24 11:06 Assessment & Plan Assessment & Plan (1) Microscopic hematuria: Code(s): R31.29 - Other microscopic hematuria Category: Medical (2) Cigar smoker: Code(s): F17.290 - Nicotine dependence, other tobacco product, uncomplicated Category: Social Hx (3) Mixed stress and urge urinary incontinence: Code(s): N39.46 - Mixed incontinence Category: Medical (4) Nocturia: Code(s): R35.1 - Nocturia Category: Medical (5) Urinary urgency: Code(s): R39.15 - Urgency of urination Category: Medical (6) Urinary frequency: Code(s): R35.0 - Frequency of micturition Category: Medical Plan In office urinalysis results reviewed with the patient today; as noted above; will send for urine cytology. Will obtain CT urogram for further assessment evaluation. BUN and creatinine ordered for imaging. Discussed at length potential causes lower urinary tract symptoms patient is experiencing as well as microscopic hematuria. Discussed bladder triggers/irritants. Discuss trial of medication and or pelvic floor therapy. Start Myrbetriq as discussed and prescribed. Discussed in office cystoscopy for further assessment evaluation; she will think about this. Discussed potential for in office urodynamics for further assessment evaluation. Discussed importance of limiting fluids 2-3 hours prior to bed to decrease episodes of nocturia. Follow-up in 1-3 months with imaging and labs to be completed prior; or sooner with any issues, concerns, and or questions. Orders: Orders AMB Urinalysis Automated Today Z13.9 - Encounter for screening, unspecified CT urogram Today R31.0 - Gross hematuria Blood Urea Nitrogen Today R39.15 - Urgency of urination Creatinine Today R39.15 - Urgency of urination Urine Cytology Today N39.0 - Urinary tract infection, site not specified Medications: New mirabegron ER (Myrbetriq) 25 mg PO DAILY 30 days 30 tabs 3RF N30.10 - Interstitial cystitis (chronic) without hematuria, N32.81 - Overactive bladder, R35.1 - Nocturia, R39.15 - Urgency of urination Patient Instructions: The patient had an opportunity to ask questions regarding the treatment plan. All questions were answered. Physical exam, labs, and imaging were discussed and reviewed in detail. As well as risks, benefits, and discussion of treatment choices. No major barriers to understanding were identified. The patient expressed understanding and agreement with the above treatment plan. The patient was made aware they should contact our office by phone for worsening of their current condition, the appearance of new symptoms, or with any questions or concerns. Compliance is encouraged with any medications and follow up testing that is ordered. It is a privilege to be allowed the opportunity to participate in? your urological care.? Again, if you have any questions or concerns If you have any questions or concerns please do not hesitate to contact me. The office is [phone]. This note is constructed using voice recognition software. While every effort has been made to ensure accuracy machine engineer errors may have been included. Yours sincerely, WARREN Hendrix Coding Level of Care Code New Pt Level 4 (46899) Diagnoses Microscopic hematuria R31.29 Cigar smoker F17.290 Mixed stress and urge urinary incontinence N39.46 Nocturia R35.1 Urinary urgency R39.15 Urinary frequency R35.0
== END ==
LOC: HO.HUSH 10:48
PROVIDERS: PCP Family Medicine; Visit Provider Nurse Practitioner Family
DX: R31.29 Other microscopic hematuria (principal); F17.290 Nicotine dependence, other tobacco product, uncomplicated; N39.46 Mixed incontinence; R35.1 Nocturia; R39.15 Urgency of urination; R35.0 Frequency of micturition; Z13.9 Encounter for screening, unspecified
CPT/HCPCS: 99204

== ENCOUNTER 2024-08-26 09:06 | Outpatient (REF) | payer MEDICAID, SELFPAY ==
[2024-08-26 11:22] LABS: Blood Urea Nitrogen 15 mg/dL (9-16); Estimated Glomerular Filt Rate > 60
== END 2024-08-26 09:07 | disposition home or self-care (01) ==
LOC: HO.10HDL 09:06
PROVIDERS: Visit Provider Nurse Practitioner Family
DX: R39.15 Urgency of urination (principal)
CPT/HCPCS: 36415; 82565; 84520

== ENCOUNTER 2024-10-05 14:09 | Outpatient (AMB) | payer MEDICAID, SELFPAY ==
[2024-10-05 14:15] VITALS: BMI 29.0
--- NOTE | 2024-10-05 14:15 | MHC.OFFVIS ---
Vital Signs 10/05/24 14:15 10/05/24 14:17 Height 5 ft 6 in 5 ft 6 in Weight 180 lb 180 lb BMI 29.0 29.0 Intake Visit Reasons: OV-Lumbar Spine MRI review Intake Note: Jw is a 58 year old female who presents with complaints of progressively worsening low back pain which radiates down both of her legs to both of her feet. The patient states that her symptoms have gotten worse over the last year in spite of continued non operative treatments. She describes her back pain as sharp and severe in nature. The patient states that she has gone to the emergency room twice recently because of the pain which radiates down her legs. The patient also states that she walks with a limp because of weakness in her legs. She has failed the last 6 weeks of conservative treatment. She has tried Tylenol, anti-inflammatory medicines and muscle relaxants which gave her minimal relief. She has done physical therapy which aggravated her pain. Blow Molder Required: No Allergies No Known Allergies [No Known Allergies*] Allergy (Verified 10/05/24 14:17) Medication List - Last Reconciled 10/05/24 by Saad Herrera MD albuterol sulfate 90 mcg/actuation (Proventil HFA) 2 puffs inhalation Q4-6H PRN albuterol sulfate 2.5 mg inhalation TID atorvastatin 1 tab PO BEDTIME baclofen 5 mg PO BID bisacodyl (Dulcolax (bisacodyl)) 10 mg (2 x 5 mg) PO ONCE 1 day celecoxib (Celebrex) 200 mg PO DAILY PRN cholecalciferol (vitamin D3) 1 tab PO DAILY clonidine HCl 0.2 mg PO BEDTIME escitalopram oxalate (Lexapro) 1 tab PO BEDTIME lidocaine 5% (Lidoderm) 1 patch topical DAILY lorazepam 1 tab PO BID PRN mirabegron ER (Myrbetriq) 25 mg PO DAILY 30 days multivitamin 1 tab PO QAM nebulizer and compressor (Proneb Max Compressor-LC Plus) As directed pantoprazole 40 mg PO DAILY peg [id number]-kxnieijr 1-0.2-0.2 % (Artificial Tears ([id number]-ihraxbkrn-lytgpdgn)) 1 drp ophthalmic (eye) TID polyethylene glycol 3350 (Miralax) 238 grams PO ONCE triamcinolone acetonide 0.025% 1 appl topical BID PFSH Medical History History of anemia History of depression Anxiety Bipolar disorder Panic attacks Surgical History Hx of hand surgery Hx of dilation and curettage History of endometrial ablation History of Family History Maternal Grandmother Uterine cancer Social History Household Members: Spouse and Children Are you a primary care nurse rn to a significant other at home: No Do you presently have visiting nurse or other home services: No Alcohol intake: current Alcohol intake frequency: holidays/special occasions only Patient Tobacco Use Status: Never used Tobacco Current occupational status: disabled Sexual orientation: Straight/Heterosexual Gender identity: Female Female Reproductive History Menstrual Age of Menarche: 12 Physical Exam Vital Signs: BMI result Body Mass Index 29.0 Back/Spine/Pelvis Other: Low back examination shows bilateral paraspinal muscle tenderness, pain with range of motion, positive straight leg raise tests bilaterally at 70 degrees Results Reviewed Results Reviewed: MRI of the patient's lumbar spine shows 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 Thus, I will have her evaluated by our pain management clinic here at [facility]. She will contact me prior to that appointment should her symptoms worsen in any way. Feel free to call me at any time should questions regarding her orthopedic management arise. I spent 20 minutes in reviewing the patient's records and imaging studies, seeing the patient and documenting in the medical record. Orders: Referrals Pain Management Referral M54.50 - Low back pain, unspecified, M79.604 - Pain in right leg, M79.605 - Pain in left leg Coding Level of Care Code Est Pt Level 3 (43337) Complex EM visit Add On G2211 Diagnoses Low back pain radiating to both legs M54.50; M79.604; M79.605
[2024-10-05 14:17] VITALS: BMI 29.0
== END 2024-10-05 14:53 | disposition home or self-care (01) ==
PROVIDERS: PCP Family Medicine; Visit Provider Orthopaedic Surgery
DX: M54.50 Low back pain, unspecified (principal); M79.604 Pain in right leg; M79.605 Pain in left leg
CPT/HCPCS: 99213

== ENCOUNTER → 2024-10-05 14:09 | Outpatient (BNVA) | payer MEDICAID, SELFPAY | PROVIDERS: PCP Family Medicine; Visit Provider Orthopaedic Surgery | DX: M54.50 Low back pain, unspecified (principal); M79.604 Pain in right leg; M79.605 Pain in left leg | CPT/HCPCS: 99212 ==

== ENCOUNTER 2024-10-09 14:35 | Outpatient (REF) | payer MEDICAID, SELFPAY ==
[2024-10-09 16:22] LABS: Alanine Aminotransferase 43 U/L (0-31); Albumin Level 4.3 g/dL (3.5-5.0); Alkaline Phosphatase 101 U/L (39-117); Anion Gap 12 (12-20); Aspartate Amino Transferase 31 U/L (5-31); Bilirubin Total 0.7 mg/dL (0.0-1.0); Blood Urea Nitrogen 10 mg/dL (9-16); Carbon Dioxide 26 mmol/L (22-29); Chloride 104 mmol/L (96-108); Cholesterol 258 mg/dL (<200); Estimated Glomerular Filt Rate > 60; Glucose Random 99 mg/dL (60-115); HDL Cholesterol 41 mg/dL (>40); LDL Cholesterol Calculated 188 mg/dL (<100); Potassium 4.3 mmol/L (3.3-5.1); Sodium 138 mmol/L (135-145); Total Protein 7.9 g/dL (6.5-8.0); Triglycerides 148 mg/dL (<150)
[2024-10-09 17:17] LABS: Blood Urea Nitrogen 10 mg/dL (9-16); Estimated Glomerular Filt Rate > 60
[2024-10-12 09:09] LABS: TS Negative Control Passed; TS Panel A 1; TS Panel B 2; TS Positive Control Passed; TSpotTB Negative (Negative)
== END 2024-10-09 14:36 | disposition home or self-care (01) ==
LOC: HO.HHCL 14:35
PROVIDERS: General Practice; Visit Provider Nurse Practitioner Family
DX: R03.0 Elevated blood-pressure reading, without diagnosis of hypertension (principal); Z02.1 Encounter for pre-employment examination; R31.29 Other microscopic hematuria; F17.290 Nicotine dependence, other tobacco product, uncomplicated
CPT/HCPCS: 36415; 80053; 80061; 82565; 84520; 86481

== ENCOUNTER 2024-10-13 14:52 | Outpatient (REF) | payer MEDICAID, SELFPAY ==
--- NOTE | ~2024-10-13 | CT_ITS ---
CLINICAL HISTORY: R31.0 - Gross hematuria CT abdomen and pelvis with and without contrast Comparison: None Findings: No consolidation or effusion. The gallbladder and solid organs are within normal limits. No renal stones. No bowel obstruction, pneumoperitoneum, or pneumatosis. Pelvic contents unremarkable. Normal appendix. No acute fracture. IMPRESSION: No acute findings. This document has been electronically signed by: Gali Yang MD on 10/15/2024 13:11:10
[2024-10-13] MEDS: iohexoL 350 MG/ML 100 ML INFUS..BTL 85 ML IV (15:57)
== END 2024-10-13 14:53 | disposition home or self-care (01) ==
LOC: HO.CT 14:52
PROVIDERS: PCP Family Medicine; Visit Provider Nurse Practitioner Family
DX: R31.0 Gross hematuria (principal)
CPT/HCPCS: 74178; Q9967

== ENCOUNTER → 2024-10-13 14:54 | Outpatient (BNV) | payer MEDICAID, SELFPAY | PROVIDERS: PCP Family Medicine; Visit Provider Nuclear Medicine | DX: R31.0 Gross hematuria (principal) | CPT/HCPCS: 74178 ==

== ENCOUNTER → 2024-10-19 14:31 | Outpatient (BNVA) | payer MEDICAID, SELFPAY | PROVIDERS: PCP Family Medicine; Visit Provider Nurse Practitioner Family | DX: R35.0 Frequency of micturition (principal); R39.15 Urgency of urination; R35.1 Nocturia | CPT/HCPCS: 51798; 81003; 99212 ==

== ENCOUNTER → 2024-10-19 14:31 | Outpatient (AMB) | payer MEDICAID, SELFPAY ==
--- NOTE | 2024-10-19 14:34 | A.OFFVIS_ITS ---
Intake Visit Reasons: 2m/CT/labs(set) Intake Note: Patient presents today for follow up on: incontinence, frequency, urgency, and gross hematuria Urology Medication: myrbetriq Antibiotic Allergy: none Blood Thinner: none * PVR: 53ml's Power Barker Required: No Accompanied by: Self / Same As Patient Allergies No Known Allergies [No Known Allergies*] Allergy (Verified 10/19/24 15:06) Medication List - Last Reconciled 10/19/24 by FRANKIE Hendrix albuterol sulfate 90 mcg/actuation (Proventil HFA) 2 puffs inhalation Q4-6H PRN albuterol sulfate 2.5 mg inhalation TID atorvastatin 1 tab PO BEDTIME baclofen 5 mg PO BID bisacodyl (Dulcolax (bisacodyl)) 10 mg (2 x 5 mg) PO ONCE 1 day celecoxib (Celebrex) 200 mg PO DAILY PRN cholecalciferol (vitamin D3) 1 tab PO DAILY clonidine HCl 0.2 mg PO BEDTIME escitalopram oxalate (Lexapro) 1 tab PO BEDTIME lidocaine 5% (Lidoderm) 1 patch topical DAILY lorazepam 1 tab PO BID PRN mirabegron ER (Myrbetriq) 25 mg PO DAILY 30 days multivitamin 1 tab PO QAM nebulizer and compressor (Proneb Max Compressor-LC Plus) As directed pantoprazole 40 mg PO DAILY peg [id number]-kwqfohnk 1-0.2-0.2 % (Artificial Tears ([id number])) 1 drp ophthalmic (eye) TID polyethylene glycol 3350 (Miralax) 238 grams PO ONCE triamcinolone acetonide 0.025% 1 appl topical BID HPI Comments Details: Jw is a pleasant 59 year old female patient of Dr. Brian. She has a past medical history of anemia, depression, anxiety, bipolar, and panic attacks. She presents to the office today for a follow up. Of note, patient was seen approximately 2 months ago as a new patient for ongoing lower urinary tract symptoms as well as microscopic hematuria at which time a CT urogram was ordered for further assessment evaluation. These results were reviewed with the patient today. CT 11/07 notes no acute findings. Urine cytology results 09/06 Negative for high-grade urothelial carcinoma. In discussion with the patient today she reports noting improvement in lower urinary tract symptoms she had been experiencing (nocturia, mixed urinary incontinence, urinary urgency, and urinary frequency) since starting Myrbetriq as prescribed during last office visit. In office urinalysis results reviewed with the patient today no microscopic hematuria noted. We discussed intermittent microscopic hematuria verses persistent microscopic hematuria. We discussed at length potential causes of microscopic hematuria as well as lower urinary tract symptoms patient was experiencing. She does have a history of cigar smoking in relation to her zoroastrianism. She reports smoking cigars at least once a week on Tuesdays however sometimes it can be more than once a week. She otherwise denies gross/visible hematuria, dysuria, foul smelling urine, changes to urinary stream, flank pain, fever, and or chills. PVR 53ml's. She does discuss her reluctancy to taking medications. She otherwise offers no other issues or concerns at this time. [facility] Medical History History of anemia History of depression Anxiety Bipolar disorder Panic attacks Surgical History Hx of hand surgery Hx of dilation and curettage History of endometrial ablation History of Family History Maternal Grandmother Uterine cancer Social History Household Members: Spouse and Children Are you a primary director of primary care to a significant other at home: No Do you presently have visiting nurse or other home services: No Alcohol intake: current Alcohol intake frequency: holidays/special occasions only Patient Tobacco Use Status: Never used Tobacco Current occupational status: disabled Sexual orientation: Straight/Heterosexual Gender identity: Female Female Reproductive History Menstrual Age of Menarche: 12 Review of Systems Const All systems reviewed & are unremarkable except as noted in HPI and below Physical Exam Const General: cooperative, healthy appearing, comfortable, no acute distress, well developed, alert and awake Orientation/consciousness: patient oriented x3 Limitations: no limitations HEENT Head: Yes normal to inspection, Yes normocephalic and Yes atraumatic Ears: hearing grossly normal bilaterally Eyes General: appearance normal, both eyes and all related structures Neck Neck: Yes normal visual inspection and Yes trachea midline Chest Chest palpation & inspection: normal inspection of the chest Resp Effort & Inspection: normal respiratory effort and able to speak in complete sentences Cardio Rate: regular rate GI Inspection: Yes normal to inspection General: Yes no CVA tenderness Back/Spine/Pelvis Back: no CVA tenderness Skin General skin exam: no rashes or lesions noted Neuro General: patient oriented x3 Extrem General: Yes normal to inspection Psych Appearance: grossly normal and well kempt Mental Status: mental status grossly normal Speech and movement: Normal speech and movement present and Clear speech present Affect: normal affect Attitude: cooperative Thought process: Normal thought process present Thought content: Normal thought content present Insight: Fair insight present (Psych) Judgement: Fair judgement present (Psych) Office Procedures Post Void Residual Post Residual Void Post Void Residual (PVR): 53 [id number] Void Residual by ultrasound Results AMB Urinalysis, Automated UA Leukoctes 0 Kang/uL Last Edit by [email or web address] on 10/19/24 16:39 UA Nitrite Negative Last Edit by [email or web address] on 10/19/24 16:39 UA Urobilinogen 0.2 mg/dL Last Edit by [email or web address] on 10/19/24 16:39 UA Protein 15 mg/dL Last Edit by [email or web address] on 10/19/24 16:39 UA pH 6.0 Last Edit by [email or web address] on 10/19/24 16:39 UA Blood 0 Francisco Javier/uL Last Edit by [email or web address] on 10/19/24 16:39 UA Specific [place] 1.025 Last Edit by [email or web address] on 10/19/24 16:39 UA Ketone Last Edit by [email or web address] on 10/19/24 16:39 UA Bilirubin 1 mg/dL Last Edit by [email or web address] on 10/19/24 16:39 UA Glucose 0 mg/dL Last Edit by [email or web address] on 10/19/24 16:39 Results Reviewed Results Reviewed: Laboratory Last Values Urine pH (Auto) 6.0 10/19/24 16:38 Specific [place] (Auto) 1.025 10/19/24 16:38 Urine Protein (Auto) 15 mg/dL 10/19/24 16:38 Glucose (UA)(Auto) 0 mg/dL 10/19/24 16:38 Urine Blood (Auto) 0 Francisco Javier/uL 10/19/24 16:38 Urine Nitrite (Auto) Negative 10/19/24 16:38 Urine Bilirubin (Auto) 1 mg/dL 10/19/24 16:38 Urine Urobilinogen (Auto) 0.2 mg/dL 10/19/24 16:38 Leukocyte Esterase (Auto) 0 Kang/uL 10/19/24 16:38 Date of Service: 10/13/24 Procedure(s): CT urogram CLINICAL HISTORY: R31.0 - Gross hematuria CT abdomen and pelvis with and without contrast Comparison: None Findings: No consolidation or effusion. The gallbladder and solid organs are within normal limits. No renal stones. No bowel obstruction, pneumoperitoneum, or pneumatosis. Pelvic contents unremarkable. Normal appendix. No acute fracture. IMPRESSION: No acute findings. Assessment & Plan Assessment & Plan (1) Urinary frequency: Code(s): R35.0 - Frequency of micturition Category: Medical (2) Urinary urgency: Code(s): R39.15 - Urgency of urination Category: Medical (3) Nocturia: Code(s): R35.1 - Nocturia Category: Medical Plan In office urinalysis results reviewed with the patient today; as noted above. Recent CT urogram results reviewed with the patient today; as noted above. Previous urine cytology results reviewed with the patient today; as noted above. We discussed importance of adequate hydration relation to lower urinary tract symptoms as well as overall health and well-being. Patient reports improvement in lower urinary tract symptoms she had been experiencing with Myrbetriq; will continue. We discussed persistent microscopic hematuria verses intermittent microscopic h ematuria. Patient would like to continue with surveillance monitoring at this time. Follow-up in 6 months; or sooner with any issues, concerns, and or questions. Orders: Orders AMB Post Void Residual by ultrasound Today R35.0 - Frequency of micturition AMB Urinalysis Automated Today Z13.9 - Encounter for screening, unspecified Medications: Changed From mirabegron ER (Myrbetriq) 25 mg PO DAILY 30 days 30 tabs 3RF N30.10 - Interstitial cystitis (chronic) without hematuria, N32.81 - Overactive bladder, R35.1 - Nocturia, R39.15 - Urgency of urination To mirabegron ER (Myrbetriq) 25 mg PO DAILY 90 days 90 tabs 2RF N30.10 - Interstitial cystitis (chronic) without hematuria, N32.81 - Overactive bladder, R35.1 - Nocturia, R39.15 - Urgency of urination Patient Instructions: The patient had an opportunity to ask questions regarding the treatment plan. All questions were answered. Physical exam, labs, and imaging were discussed and reviewed in detail. As well as risks, benefits, and discussion of treatment choices. No major barriers to understanding were identified. The patient expressed understanding and agreement with the above treatment plan. The patient was made aware they should contact our office by phone for worsening of their current condition, the appearance of new symptoms, or with any questions or concerns. Compliance is encouraged with any medications and follow up testing that is ordered. It is a privilege to be allowed the opportunity to participate in? your urological care.? Again, if you have any questions or concerns If you have any questions or concerns please do not hesitate to contact me. The office is [phone]. This note is constructed using voice recognition software. While every effort has been made to ensure accuracy tile decorator errors may have been included. Yours sincerely, WARREN Hendrix Coding Level of Care Code Est Pt Level 3 (27097) Diagnoses Urinary frequency R35.0 Urinary urgency R39.15 Nocturia R35.1 CPT Codes Post Residual Void - PVR CPT Code: 11618-Vjuu Void Residual by ultrasound ([id number])
== END ==
PROVIDERS: PCP Family Medicine; Visit Provider Nurse Practitioner Family
DX: R35.0 Frequency of micturition (principal); R39.15 Urgency of urination; R35.1 Nocturia; Z13.9 Encounter for screening, unspecified
CPT/HCPCS: 99213

== ENCOUNTER 2024-10-21 13:20 | Outpatient (AMB) | payer MEDICAID, SELFPAY ==
--- NOTE | 2024-10-21 13:31 | MHC.OFFVIS ---
Vital Signs 10/21/24 13:33 Height 5 ft 6 in Weight 184 lb BMI 29.7 BP 151/76 H Blood Pressure Location Lt brachial Position Sitting Respiration 16 Pulse 85 Pulse Source Pulse Oximeter Pulse Oximetry (%) 96 Oxygen Delivery Method Room Air Intake Visit Reasons: Low Back & Bilateral Leg Pain Allergies No Known Allergies [No Known Allergies*] Allergy (Verified 10/21/24 13:34) Medication List - Last Reconciled 10/21/24 by Denae Moses LPN albuterol sulfate 90 mcg/actuation (Proventil HFA) 2 puffs inhalation Q4-6H PRN albuterol sulfate 2.5 mg inhalation TID atorvastatin 1 tab PO BEDTIME baclofen 5 mg PO BID bisacodyl (Dulcolax (bisacodyl)) 10 mg (2 x 5 mg) PO ONCE 1 day celecoxib (Celebrex) 200 mg PO DAILY PRN cholecalciferol (vitamin D3) 1 tab PO DAILY clonidine HCl 0.2 mg PO BEDTIME escitalopram oxalate (Lexapro) 1 tab PO BEDTIME lidocaine 5% (Lidoderm) 1 patch topical DAILY lorazepam 1 tab PO BID PRN mirabegron ER (Myrbetriq) 25 mg PO DAILY 90 days multivitamin 1 tab PO QAM nebulizer and compressor (Proneb Max Compressor-LC Plus) As directed pantoprazole 40 mg PO DAILY peg [id number]-dtjjvote 1-0.2-0.2 % (Artificial Tears ([id number])) 1 drp ophthalmic (eye) TID triamcinolone acetonide 0.025% 1 appl topical BID HPI Comments Details: Jw is very pleasant 59 years old female who presents in my office with complains on pain in lower back without radiation into bilateral lower extremities. This pain she reported started many years ago when she was 18 years old she fell off of the horse in [place]. She also reports pain in bilateral knees for which she is under care with orthopedic surgeon. She also reports pain in the left heel most likely related to plantar fasciitis. She is wearing very inappropriate high-heeled shoes. She reports that standing and sitting aggravates her pain. She reports that flexing backwards almost impossible and it hurts much more than flexing forward. She can not sleep normally because of her pain. She can not do activities of daily living. She can take care of herself she can not function normally. Hot applications and cold applications make her pain worse. Topical medications alleviate pain minimally. She reports pain more severe when she is standing and better pain when she is laying down. She reports her pain in terms of tissue damage as punching, cramping, crushing, dull, sore, hurting, aching, heavy sensation. She had x-ray and MRI of the lumbar spine results of which dictated as below. She never had physical therapy she never had chiropractic manipulations. She reported that many years ago back in [place] she received epidural steroid injections she reported pain improvement only for a week after the injection. She denies smoking cigarettes denies drinking alcohol admits 5 cans of soda a day and denies recreational drugs. [facility] Medical History (Reviewed 10/19/24 @ 21:28 by MISAEL [facility]) History of anemia History of depression Anxiety Bipolar disorder Panic attacks Surgical History Hx of hand surgery Hx of dilation and curettage History of endometrial ablation History of Family History Maternal Grandmother Uterine cancer Social History Household Members: Spouse and Children Are you a primary career technical supervisor to a significant other at home: No Do you presently have visiting nurse or other home services: No Alcohol intake: current Alcohol intake frequency: holidays/special occasions only Patient Tobacco Use Status: Never used Tobacco Current occupational status: disabled Sexual orientation: Straight/Heterosexual Gender identity: Female Female Reproductive History Menstrual Age of Menarche: 12 Review of Systems Const All systems reviewed & are unremarkable except as noted in HPI and below ENT Reports Normal hearing present Neuro Reports Normal hearing present, Denies Abnormal speech present, Denies confusion and Denies Sensory deficit (Neuro) Psych Denies confusion Physical Exam Vital Signs: Last Vital Signs Pulse 85 10/21/24 13:33 Resp 16 10/21/24 13:33 BP 151/76 H 10/21/24 13:33 Pulse Ox 96 10/21/24 13:33 Oxygen Delivery Method Room Air 10/21/24 13:33 BMI result Body Mass Index 29.7 Const General: no acute distress; No confusion Nutritional Appearance: average body habitus Orientation/consciousness: patient oriented x3 and No confusion Limitations: physical limitations Eyes General: appearance normal, both eyes and all related structures Pupils: Equal, round and reactive pupils present EOM: EOMs intact bilaterally Neck Neck: Yes full ROM Chest Chest palpation & inspection: normal inspection of the chest Resp Effort & Inspection: normal respiratory effort, able to speak in complete sentences, normal respiratory pattern, no audible wheezes and no cough Cardio Jugular venous distension: no JVD GI Inspection: Yes normal to inspection Back/Spine/Pelvis Other: Flexing forward aggravates pain much less than flexing backwards. Loading test is positive bilaterally. Tenderness on palpation in paraspinal spinal region lumbar spine. Neuro General: patient oriented x3, gait normal and No confusion Cranial nerves: Yes CN's II-XII intact bilaterally, Yes Equal, round and reactive pupils present, Yes Normal hearing present and Yes Ability to bilaterally elevate shoulders present Speech: No Abnormal speech present Gait exam (Neuro): Normal gait present Motor exam (neuro): 5/5 motor strength present throughout Sensory Exam: No Sensory deficit (Neuro) Extrem General: No pedal edema Psych Speech and movement: Normal speech and movement present Affect: normal affect Attitude: cooperative Thought process: Normal thought process present Thought content: Normal thought content present Insight: Good insight present (Psych) Judgement: Good judgement present (Psych) Results Reviewed Results Reviewed: MR LUMBAR SPINE WITHOUT CONTRAST July 2024 CLINICAL INFORMATION: Low back pain. Radiates down both posterior legs, worse on the right. Patient fell off horse when younger. COMPARISON: No prior. TECHNIQUE: Multiplanar multisequence MR imaging of the lumbar spine was done without IV contrast. Examination was performed on a 1.5 Ankita Siemens magnet, utilizing standard sequences. FINDINGS: CORONAL ALIGNMENT: -Minimal left convex scoliosis, possibly positional. SAGITTAL ALIGNMENT: -Normal lordosis. -There is a 2 mm degenerative retrolisthesis of L2 on L3. -Trace degenerative retrolisthesis L3 on L4. -Sagittal Alignment otherwise anatomic. LUMBOSACRAL JUNCTION: -Normal. There are 5 suv-ufn-imwydyu lumbar-type vertebral bodies. VERTEBRAL BODIES/BONE MARROW: -There is no compression deformity or evidence of acute fracture. No gross bone marrow edema, or abnormal infiltrating bone marrow signal. -Of note, marrow signal somewhat diffusely hypointense on T1-weighted imaging, a nonspecific finding which most likely relates to hematopoietic marrow. This can be seen in smokers as well. DISCS: -Moderate loss of disc height and signal at L4-5 and L5-S1, with similar but slightly milder changes at L2-3. Mild disc degeneration L3-4. -Discs above the L2 level are preserved. SPINAL CANAL: -No abnormal developmental findings. CONUS MEDULLARIS: -Terminates at L1. Morphology and signal is normal. INTRADURAL NERVE ROOTS: -Normal in appearance. -No masses or clumping seen. Axial Disc Space Images: T12-L1: No central canal or neural foraminal narrowing. L1-L2: No central canal or neural foraminal narrowing. L2-L3: Shallow diffuse disc bulge present, which mildly indents upon the ventral thecal sac but does not contact nerve roots. Minimal hypertrophic facet changes bilaterally with mild posterior ligamentous thickening/infolding. There is mild central canal narrowing, mild bilateral subarticular recess narrowing, and mild left greater than right neural foraminal narrowing. L3-L4: There is a shallow diffuse disc bulge which is slightly more prominent right lateral and right foraminal. This indents upon the ventral thecal sac, approaches but does not definitively contact the traversing right L4 roots. There are mild hypertrophic facet changes bilaterally, with mild posterior ligamentous thickening/infolding. Findings result in mild central canal stenosis, mild to moderate right subarticular recess stenosis, and mild bilateral neural foraminal stenosis. L4-L5: There is a broad-based disc bulge present concentrically involving both foraminal zones right greater than left, with diffuse annular fissuring. This indents upon the ventral thecal sac, but does not contact nerve roots. There are mild hypertrophic degenerative facet changes with posterior ligamentous infolding/thickening. Combination of findings is resulting in mild central canal stenosis, mild right greater than left subarticular recess stenosis without mass effect upon the traversing L5 roots. There is mild bilateral right greater than left neural foraminal narrowing. L5-S1: There is a diffuse disc bulge present with central annular fissuring, indenting upon the ventral thecal sac but not contacting nerve roots. There is mild left ureteral lipomatosis present in the subarticular regions bilaterally. Mild degenerative facet changes bilaterally. There is mild central canal narrowing, no significant subarticular recess narrowing, and mild to moderate bilateral neural foraminal narrowing. 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 PARAVERTEBRAL AND INCLUDED EXTRASPINAL SOFT TISSUES: -Normal. MR/MR lumbar spine wo con IMPRESSION: 1. Relatively mild lumbar spondylosis as detailed above. There is no significant central canal, lateral recess, or neural foraminal narrowing or nerve root impingement at any level. 2. Degenerative disc disease most prominent at L2-3, L4-5 and L5-S1. 3. Subtle degenerative retrolisthesis L2-3 and L3-4. 4. Additional ancillary findings as detailed in the body of the report. Assessment & Plan Assessment & Plan (1) Spondylosis of lumbar region without myelopathy or radiculopathy: Code(s): M47.816 - Spondylosis without myelopathy or radiculopathy, lumbar region Category: Medical (2) Chronic pain syndrome: Code(s): G89.4 - Chronic pain syndrome Category: Medical Plan Unfortunately this patient never completed conservative therapy for her lower back pain. I will send her for physical therapy with diagnosis of spondylosis of lumbar spine. I also recommend her to take OTC topical medications to alleviate her pain she reported that some of the topical medications were helping to control her pain. NSAIDs are contraindicated for her. I also recommended her stopped drinking soda, I also recommended her to were more appropriate shoes with arch support. When she will complete her physical therapy she will schedule an appointment with me and if her pain will continue to be as severe as it is today I will schedule her for bilateral medial branch block L3-L4 does ramus L5. Orders: Orders PT Evaluation and Treatment Today G89.4 - Chronic pain syndrome, M47.816 - Spondylosis without myelopathy or radiculopathy, lumbar region Coding Level of Care Code New Pt Level 3 (87774) Diagnoses Spondylosis of lumbar region without myelopathy or radiculopathy M47.816 Chronic pain syndrome G89.4
[2024-10-21 13:33] VITALS: BP 151/76; PULSE 85; RESP 16; O2SAT 96; BMI 29.7
== END 2024-10-21 14:15 | disposition home or self-care (01) ==
PROVIDERS: PCP Family Medicine; Referring Provider Orthopaedic Surgery; Visit Provider Anesthesiology
DX: M47.816 Spondylosis without myelopathy or radiculopathy, lumbar region (principal); G89.4 Chronic pain syndrome
CPT/HCPCS: 99203

== ENCOUNTER → 2024-10-21 13:20 | Outpatient (BNVA) | payer MEDICAID, SELFPAY | PROVIDERS: PCP Family Medicine; Referring Provider Orthopaedic Surgery; Visit Provider Anesthesiology | DX: M47.816 Spondylosis without myelopathy or radiculopathy, lumbar region (principal); G89.4 Chronic pain syndrome | CPT/HCPCS: 99202 ==

== ENCOUNTER 2024-11-11 13:44 | Outpatient (RCR) | payer MEDICAID, SELFPAY ==
--- NOTE | 2025-01-08 09:00 | MHC.PT.DC ---
[facility] [place] Office [place] Office [place] Office [address] Eleonora Antoine [address] [phone] F: [phone] F: [phone] F: [phone] F: [phone] Physical Therapy Discharge Report Diagnosis: Chronic pain syndrome, M47.816 - Spondylosis without myelopathy or radiculopathy, lumbar region Date of Surgery: Date of Evaluation: 11/09/24 Date of Discharge: 01/08/25 Treatments to Date: 2 Cancellations to Date: 2 No Shows to Date: 2 Discharge Status: Visit Non-compliance Discharge Summary: . Electronically signed by: Brad Kimble PT. Please sign and return to therapist. Thank you for your referral.
== END 2025-01-08 09:00 | disposition home or self-care (01) ==
LOC: HO.PT 13:44
PROVIDERS: PCP General Practice; Visit Provider Anesthesiology
DX: M47.816 Spondylosis without myelopathy or radiculopathy, lumbar region (principal); G89.4 Chronic pain syndrome
CPT/HCPCS: 97110; 97161

== ENCOUNTER 2024-11-25 15:13 | Outpatient (REF) | payer MEDICAID, SELFPAY ==
[2024-11-25 16:13] LABS: MANUAL DIFF FLAG NO
--- OUTSIDE RECORDS SUMMARY | 2024-11-25 16:13 | XMS_ITS | Encounter Summary ---
Author Organization [employer] Address [address] [facility] [address] [place] [address] Care Team Providers Care Music Leader Name Role Phone Nicole Rivrea MD Primary Care Provider [phone] Reason for Visit * Reason Onset Date Comments Med Refill 11/25/2024 Encounter Details Date Type Department Care Team ([facility] st Contact Info) Description 11/25/2024 Telephone [facility] MEDICINE [address] [place] [address] Nicole Rivera MD [address] [place] [address] Med Refill Social History Tobacco Use Types Packs/Day Years Used Date Smoking Tobacco: Never Smokeless Tobacco: Never Alcohol Use Standard Drinks/Week Comments Yes 0 (1 standard drink = 0.6 oz pur e alcohol) oca Depression Answer Date Recorded Patient Health Questionnaire-9 Score 0 01/23/2024 Patient Health Questionnaire-9 Score 0 01/23/2024 Last PHQ-9: Questionnaire Data Not on file 0 01/23/2024 Housing Stability Answer Date Recorded What is your housing situation today? I have randee leblanc 08/12/[address] you li ve. Do you have problems with any of the following? None of the above 08/12/2023 Food Insecurity Answer Date Recorded Within the past 12 months, y ou worried that your food would run out before you got money to buy more: Never True 08/12/2023 Within the past 12 months,th e food you bought just didn't last and you didn't have enough money to get more: Never True Transportation Answer Date Recorded In the past 12 months, has l ack of transportation kept you from medical appts, meetings, work or from getting things needed for daily living? Yes, it has kept me from medical appointments or getting medications. 01/23/2024 Utilities Answer Date Recorded In the past 12 months, has t he electric, gas, oil or water company threatened to shut off services in your home? No 08/12/2023 Depression Answer Date Recorded Patient Health Questionnaire-2 Score 0 01/23/2024 Comments No Sex and Gender Information Value Date Recorded Sex Assigned at Female 08/13/2022 10:21 AM EDT Legal Sex Female 10:21 AM EDT Gender Identity Female 08/13/2022 10:21 AM EDT Sexual Orientation Straight 08/13/2022 10 :21 AM EDT documented as of this encounter Miscellaneous Notes * Telephone Encounter - Alma Lopez RN - 11/25/2024 12:25 PM EST Tc to pt requesting refill of Prednisone. Pt denies vomiting, diarrhea, fever and chills. Pt reportthey were seen two days ago by the provider in regards to vomiting and diarrhea. Pt was rx 4 tabs of Prednisone 10 mg on 10/27/24 for a one time dose and given a shourt course of Prednisone 20 MG BID for five days. Pt reports that the prednisone helped their asthma flare up. Pt reports sob and chesttightness and feels like they're having an asthma attack now. Pt reports they used their pump and duo neb but feels like their is no improvement. Pt advised prednisone cannot be rx without being evaluated by an provider. Pt advised to come into wic today or go to ED to be evaluated. Pt expressed und erstanding. Tc to pt again to confirm if they will go to wic or ED to be evaluated now. Pt reports they will go to [facility], waiting for their son to pick them up. Offered to call 911 for pt to bring themto the ED and pt refused. Pt reports they did a duo-neb about an half an hour ago and feel a littlebetter. Pt reports will call their son again to find out what time they're coming for them. ED precautions provided and pt verbalized understanding. Message forwarded to PCP as an FYI. * Telephone Encounter - Dami Tobar - 11/25/2024 10:56 AM EST TC from pt requesting medication refill. Medications needing refill : predniSONE (Deltasone) 20 MG tablet To be sent to: [facility] pharmacy documented in this encounter Plan of Treatment Upcoming Encounters Date Type Department Care Team (Late st Contact Info) Description 01/25/2025 2:15 PM EDT Office Visit [facility] MEDICINE [address] [place] [address] Nicole Rivera MD [address] [place] [phone] documented as of this encounter Visit Diagnoses Not on filedocumented in this encounter Additional Health Concerns Assessment Noted Time PHQ-9 Depression Total Score: 0 01/23/20 24 1:34 PM EDT documented as of this encounter Care Teams Music Leader Relationship Specialty Start Date End Date Nicole Rivera MD [address] [place] [id number] PCP - General Family Medicine 05/01/23 documented as of this encounter
--- OUTSIDE RECORDS SUMMARY | 2024-11-25 16:13 | XMS_ITS | Encounter Summary ---
Author Organization [employer] Address [address] [facility] [address] [place] [address] Care Team Providers Care Bronc Breaker Name Role Phone Nicole Rivera MD Primary Care Provider [phone] Reason for Visit * Reason Comments Med Refill Encounter Details Date Type Department Care Team ([facility] st Contact Info) Description 11/11/2024 Refill [facility] MEDICINE [address] [place], [place] [phone] Nicole Rivera MD [address] [place] [address] Pain of right upper extremity Social History Tobacco Use Types Packs/Day Years [...] Patient Health Questionnaire-2 Score 0 01/23/2024 Comments Unknown Sex and Gender Information Value Date Recorded Sex Assigned at Female 08/13/2022 10:21 AM EDT Legal Sex Female 10:21 AM EDT Gender Identity Female 08/13/2022 10:21 AM EDT Sexual Orientation Straight 08/13/2022 10 :21 AM EDT documented as of this encounter Plan of Treatment Upcoming Encounters Date Type Department Care Team (Late st Contact Info) Description 01/25/2025 2:15 PM EDT Office Visit [facility] MEDICINE [address] [place] [address] Nicole Rivera MD [address] [place] [address] documented as of this encounter Visit Diagnoses Diagnosis Pain of right upper extremity documented in this encounter Additional Health Concerns Assessment Noted Time PHQ-9 Depression Total Score: 0 01/23/20 24 1:34 PM EDT documented as of this encounter Care Teams Bronc Breaker Relationship Specialty Start Date End Date Nicole Rivera MD [address] [place] [phone] PCP - General Family Medicine 05/01/23 documented as of this encounter
--- OUTSIDE RECORDS SUMMARY | 2024-11-25 16:13 | XMS_ITS | Encounter Summary ---
Author Organization [employer] Address [address] [facility] [address] [place] [address] Care Team Providers Care Ceramic Plater Name Role Phone Nicole Rivera MD Primary Care Provider [phone] Reason for Referral * Consultation (Routine) - Authorized Specialty Diagnoses / Procedures Referred By Jc delong Referred To Contact Pharmacy Diagnoses Essential hypertension Nicole Rivera MD [address] [place] [address] Phone: tel: fax: Referral ID Status Reason Start Date Expiration Date Visits Requested Visits Authorized [id number] Authorized Consult and Treat 08/20/2024 08/20/2025 6 6 Encounter Details Date Type Department Care Team (Late st Contact Info) Description 08/20/2024 Orders Only [facility] MEDICINE [address] [place], [place] [phone] Nicole Rivera MD [address] [place], [place] [phone] Essential hypertension (Primary Dx) Social History Tobacco Use Types Packs/Day Years [...] Description 01/25/2025 2:15 PM EDT Office Visit [facility] MEDICINE [address] [place] [phone] Nicole Rivera MD [address] [place] [phone] Scheduled Referrals Name Type Priority Associated Diagnoses Orde r Schedule Referral to Pharmacy CDTM Outpatient Referral Routine Essential hypertension Ordered: 08/20/2024 documented as of this encounter Visit Diagnoses Diagnosis Essential hypertension- Primary Unspecified essential hypertension documented in this encounter Additional Health Concerns Assessment Noted Time PHQ-9 Depression Total Score: 0 01/23/20 24 1:34 PM EDT documented as of this encounter Care Teams Ceramic Plater Relationship Specialty Start Date End Date Nicole Rivera MD [address] [place] [id number] PCP - General Family Medicine 05/01/23 documented as of this encounter
--- OUTSIDE RECORDS SUMMARY | 2024-11-25 16:13 | XMS_ITS | Encounter Summary ---
Author Organization [employer] Address [address] [facility] [address] [place] [phone] Care Team Providers Care Copyholder Name Role Phone Nicole Rivera MD Primary Care Provider [phone] Reason for Visit * Reason Comments Diarrhea Encounter Details Date Type Department Care Team ([facility] st Contact Info) Description 11/23/2024 10:30 AM EST Office Visit [facility] MEDICINE [address] [place], [place] [phone] Tami Ferrara DO [address] [place] [address] Vomiting and diarrhea Social History Tobacco Use Types Packs/Day Years Used Date Smoking Tobacco: Never Smokeless Tobacco: Never Tobacco Cessation:Counseling Given: Not Answered Alcohol Use Standard Drinks/Week Comments Yes 0 [...] AM EDT documented as of this encounter Last Filed Vital Signs Vital Sign Reading Time Taken Comments Blood Pressure 135/78 11/23/2024 10:03 AM EST Pulse 91 11/23/2024 10:03 AM EST Temperature 36.2 ??C (97.1 ??F) 11/23/2024 10:[address] Respiratory Rate 20 11/23/2024 10:03 AM EST Oxygen Saturation - - Inhaled Oxygen Concentration - - Weight 86.2 kg (190 lb 2 oz) 11/23/2024 10:03 AM EST Height 167.6 cm (5' 6 ) 11/23/2024 10:03 AM EST Body Mass Index 30.69 11/23/2024 10:03 AM EST documented in this encounter Plan of Treatment Upcoming Encounters Date Type Department Care Team (Late st Contact Info) Description 01/25/2025 2:15 PM EDT Office Visit [facility] MEDICINE [address] [place] [address] Nicole Rivera MD [address] [place] [address] documented as of this encounter Procedures Procedure Name Priority Date/Time Associated Diagnosis Comments POCT INFLUENZA B Routine 11/23/2024 10:1 4 AM EST Vomiting and diarrhea POCT INFLUENZA A Routine 11/23/2024 10:1 4 AM EST Vomiting and diarrhea POCT RAPID COVID ANTIGEN Routine 11/23/2024 10:10 AM EST Vomiting and diarrhea POCT RAPID STREP A Routine 11/23/2024 10 :10 AM EST Vomiting and diarrhea documented in this encounter Results * POCT Rapid Influenza B OSOM (11/23/2024 10:14 AM EST) [facility] Rapid Influenza B Ag Negative Negative, Indeterminate QC Media Lot # [id number] Lot# Expiration Date [id number] Swab 11/23/2024 10:1 4 AM EST Tami Ferrara DO POINT OF CARE TEST ENTER/KARLEE T ORDERABLES Final Result * POCT Rapid Influenza A OSOM (11/23/2024 10:14 AM EST) [facility] Rapid Influenza A Ag Negative Negative, Indeterminate QC Media Lot # [id number] Lot# Expiration Date [id number] Swab Nasopharyngeal structure / Unknown 11/23/2024 10:14 AM EST Tami Ferrara DO POINT OF CARE TEST ENTER/KARLEE T ORDERABLES Final Result * POCT Rapid Strep A OSOM (11/23/2024 10:10 AM EST) [facility] Rapid Strep A Screen Negative Negative, None Detected QC Media Lot # [id number] Lot# Expiration Date [id number] Swab 11/23/2024 10:1 0 AM EST Tami Ferrara DO POINT OF CARE TEST ENTER/KARLEE T ORDERABLES Final Result * POCT Rapid Covid-19 BinaxNOW (11/23/2024 10:10 AM EST) [facility] Rapid COVID Ag Negative QC Media Lot # [id number] Lot# Expiration Date [id number] Swab 11/23/2024 10:1 0 AM EST Tami Lowsilva DO POINT OF CARE TEST ENTER/KARLEE T ORDERABLES Final Result documented in this encounter Visit Diagnoses Diagnosis Vomiting and diarrhea documented in this encounter Additional Health Concerns Assessment Noted Time PHQ-9 Depression Total Score: 0 01/23/20 24 1:34 PM EDT documented as of this encounter Care Teams Copyholder Relationship Specialty Start Date End Date Nicole Rivera MD [address] [place] [address] PCP - General Family Medicine 05/01/23 documented as of this encounter
--- OUTSIDE RECORDS SUMMARY | 2024-11-25 16:13 | XMS_ITS | Encounter Summary ---
Author Organization [employer] Address [address] [place] [address] Care Team Providers Care Event Sales Manager Name Role Phone Nicole Rivera MD Primary Care Provider [phone] Encounter Details Date Type Department Care Team (Latest Contact Info) Description 11/23/2024 Travel Social History Tobacco Use Types Packs/Day Years [...] your housing situation today? I have randee leblnac 08/12/[address] you li [...] Description 01/25/2025 2:15 PM EDT Office Visit [facility] MEDICINE [address] [place] [address] Nicole Rivera MD [address] [place] [address] documented as of this encounter Visit Diagnoses Not on filedocumented in this encounter Additional Health Concerns Assessment Noted Time PHQ-9 Depression Total Score: 0 01/23/20 24 1:34 PM EDT documented as of this encounter Care Teams Event Sales Manager Relationship Specialty Start Date End Date Nicole Rivera MD [address] [place] [address] PCP - General Family Medicine 05/01/23 documented as of this encounter
--- OUTSIDE RECORDS SUMMARY | 2024-11-25 16:13 | XMS_ITS | Encounter Summary ---
Author Organization [employer] Address [address] 7[address] [place] [address] Care Team Providers Care Vascular Nurse Name Role Phone Nicole Rivera MD Primary Care Provider [phone] Encounter Details Date Type Department Care Team (Late st Contact Info) Description 10/28/2024 Telephone [facility] [address] [place] [address] Rochelle Gaytan MD [address] [place] [address] Social History Tobacco Use Types Packs/Day Years [...] encounter Miscellaneous Notes * Telephone Encounter - Amee Silveira RN - 10/28/2024 9:15 AM EST TC placed to pt regarding message below per Dr. Gaytan. Pt verbalized understanding. No questions or concerns expressed at this time. Pt to F/U as needed. ----- Message from Rochelle Gaytan MD sent at 10/28/2024 9:02 AM EST ----- Pt was seen in [facility] documented in this encounter Plan of Treatment Upcoming Encounters Date Type Department Care Team (Late st Contact Info) Description 01/25/2025 2:15 PM EDT Office Visit [facility] MEDICINE [address] [place] [address] Nicole Rivera MD [address] [place] [address] documented as of this encounter Visit Diagnoses Not on filedocumented in this encounter Additional Health Concerns Assessment Noted Time PHQ-9 Depression Total Score: 0 01/23/20 24 1:34 PM EDT documented as of this encounter Care Teams Vascular Nurse Relationship Specialty Start Date End Date Nicole Rivera MD [address] [place] [address] PCP - General Family Medicine 05/01/23 documented as of this encounter
--- OUTSIDE RECORDS SUMMARY | 2024-11-25 16:14 | XMS_ITS | Encounter Summary ---
Author Organization [employer] Address [address] [facility] [address] [facility] [address] [place] [address] Care Team Providers Care Integration Technician Name Role Phone Nicole Rivera MD Primary Care Provider [phone] Reason for Visit * Reason Comments Dizziness Encounter Details Date Type Department Care Team ([facility] st Contact Info) Description 10/27/2024 3:40 PM EST Office Visit [facility] [address] [place] [address] Rochelle Gaytan MD [address] [place], [place] [phone] Moderate persistent asthma with acute exacerbation (Primary Dx); Dizziness Social History Tobacco Use Types Packs/Day Years [...] Sign Reading Time Taken Comments Blood Pressure 134/96 10/27/2024 3:37 PM EST Pulse 115 10/27/2024 3:37 PM EST Temperature 36.8 ??C (98.2 ??F) 10/27/2024 3:37 PM ES T Respiratory Rate 20 10/27/2024 3:37 PM EST Oxygen Saturation 96% 10/27/2024 3:37 PM EST Inhaled Oxygen Concentration - - Weight 84.5 kg (186 lb 3.2 oz) 10/27/2024 3:37 P M EST Height 167.6 cm (5' 6 ) 10/27/2024 3:37 PM EST Body Mass Index 30.05 10/27/2024 3:37 PM EST documented in this encounter Progress Notes * Rochelle Gaytan MD - 10/27/2024 3:40 PM EST Subjective Patient ID: Jw Harris is a 59 y.o. female who presents for Dizziness. Dizziness This is a recurrent problem. The current episode started today. The problem occurs intermittently. The problem has been gradually worsening. Pertinent negatives include no abdominal pain, chest pain,fever, headaches, neck pain, rash, sore throat, swollen glands or vomiting. Shortness of Breath This is a new problem. The current episode started yesterday. The problem occurs constantly. The problem has been gradually worsening. Associated symptoms include orthopnea and wheezing. Pertinent negatives include no abdominal pain, chest pain, claudication, coryza, ear pain, fever, headaches, hemoptysis, leg pain, leg swelling, neck pain, PND, rash, rhinorrhea, sore throat, sputum production, swollen glands, syncope or vomiting. The symptoms are aggravated by weather changes. She has tried beta agonist inhalers for the symptoms. The treatment provided mild relief. Her past medical history is significant for asthma. Review of Systems Constitutional: Negative for fever. HENT: Negative for ear pain, rhinorrhea and sore throat. Respiratory: Positive for shortness of breath and wheezing. Negative for hemoptysis and sputum production. Cardiovascular: Positive for orthopnea. Negative for chest pain, claudication, leg swelling, syncope and PND. Gastrointestinal: Negative for abdominal pain and vomiting. Musculoskeletal: Negative for neck pain. Skin: Negative for rash. Neurological: Positive for dizziness. Negative for headaches. Objective Physical Exam Constitutional: Appearance: Normal appearance. Cardiovascular: Rate and Rhythm: Normal rate and regular rhythm. Pulses: Normal pulses. Heart sounds: Normal heart sounds. Pulmonary: Effort: Pulmonary effort is normal. Breath sounds: Decreased air movement present. Decreased breath sounds and wheezing present. Neurological: Mental Status: She is alert. Assessment/Plan Diagnoses and all orders for this visit: Moderate persistent asthma with acute exacerbation Comments: Pt given duoneb in the [facility] Prednisone 40mg given in the [facility] Started on short course of prednisone .Cont Albuterol at home Orders: - predniSONE (Deltasone) tablet 10 mg - ipratropium-albuterol (Duo-Neb) 0.5-2.5 mg/3 mL nebulizer solution 3 mg Dizziness Comments: Labs ordered today She states she has remote history of Anemia and had same symptoms then too Orders: - CBC auto differential; Future - Basic Metabolic Panel; Future Other orders - predniSONE (Deltasone) 20 MG tablet; Take 2 tablets (40 mg) by mouth Once per day for 5 days. documented in this encounter Plan of Treatment Upcoming Encounters Date Type Department Care Team (Late st Contact Info) Description 01/25/2025 2:15 PM EDT Office Visit [facility] MEDICINE [address] [place] [address] Nicole Rivera MD [address] [place] [address] documented as of this encounter Procedures Procedure Name Priority Date/Time Associated Diagnosis Comments CBC WITH AUTO DIFFERENTIAL Routine 10/27/2024 4:06 PM EST Dizziness BASIC METABOLIC PANEL Routine 10/27/2024 4:06 PM EST Dizziness documented in this encounter Results * (ABNORMAL) Basic Metabolic Panel (10/27/2024 4:06 PM EST) [facility] Sodium 139 135 - 145 mmol/L [facility] Potassium 3.7 3.3 - 5.1 mmol/L [facility] Chloride 107 96 - 108 mmol/L [facility] Carbon Dioxide 26 22 - 29 mmol/L [facility] Anion Gap 10(L) 12 - 20 [facility] Urea Nitrogen (BUN) 10 9 - 16 mg/dL [facility] Creatinine, Serum 0.78 0.5 - 1.4 mg/dL [facility] Estimated Glomerular Filt Rate >60 [facility] Comment:Chronic Kidney Disea se: Estimated GFR < 60 mL/min/1.30y8Qjhere Kidney Disease: Estimated GFR < 15 mL/min/1.73m2 Glucose 113 60 - 115 mg/dL [facility] Calcium 8.7 8.4 - 10.2 mg/dL [facility] Blood Venous blood specimen / Unknown 10/27/2024 4:06 PM EST 10/27/2024 5:13 PM EST us Rochelle Gaytan MD LAB BLOOD ORDERABLES Final Resul t [facility] [address] [place], [place] [phone] * (ABNORMAL) CBC auto differential (10/27/2024 4:06 PM EST) Pathologist [facility] White Blood Count 6.5 4.8 - 10.8 X10*3/uL [facility] Red Blood Count 4.94 4.20 - 5.50 X10*6/uL [facility] Hemoglobin 15.6 12.0 - 16.0 g/dl [facility] Hematocrit 45.8 37.0 - 47.0 % [facility] Mean Corpuscular Volume 92.7 80.0 - 98.0 fL [facility] Mean Corpuscular Hemoglobin 31.6 27.0 - 33.0 pg [facility] Mean Corpuscular HGB Conc 34.1 31.0 - 35.0 g/dl [facility] Red Cell Distribution Width 12.2 11.0 - 16.0 % [facility] Platelet Count 358 160 - 400 X10*3/uL [facility] Mean Platelet Volume 9.5 9.4 - 12.3 fL [facility] Neutrophils Percent Auto 32.6(L) 45 - 73 % [facility] Imm Gran Pct Auto 0.2 0.0 - 0.4 % [facility] Lymphocytes Percent Auto 56.7(H) 20 - 40 % [facility] Monocytes Percent Auto 8.8 2 - 11 % [facility] Eosinophils Percent Auto 1.1 0 - 4 % [facility] Basophils Percent Auto 0.6 0 - 2 % [facility] NRBC Pct Auto 0.0 0.0 - 0.2 /100WBC [facility] Neutrophils Absolute Auto 2.1 2.0 - 8.3 x10*3/uL [facility] Imm Gran Abs Auto 0.01 0.00 - 0.03 X10*3/uL [facility] Lymphocytes Absolute Auto 3.7 1.2 - 4.9 X10*3/uL [facility] Monocytes Absolute Auto 0.6 0.1 - 1.2 X10*3/uL [facility] Eosinophils Absolute Auto 0.1 0.0 - 0.4 X10*3/uL [facility] Basophils Absolute Auto 0.0 0.0 - 0.2 X10*3/uL [facility] NRBC Abs Auto 0.000 0.0 - 0.012 X10*3/uL [facility] Blood Venous blood specimen / Unknown 10/27/2024 4:06 PM EST 10/27/2024 5:13 PM EST us Rochelle Gaytan MD LAB BLOOD ORDERABLES Final Resul t [facility] [address] [place] [address] [phone] documented in this encounter Visit Diagnoses Diagnosis Moderate persistent asthma with acute exacerbation- Primary Dizziness Dizziness and giddiness documented in this encounter Administered Medications Inactive Administered Medications - up to 3 most recent administrations Medication Order MAR Action Action Date Dose Rate Site ipratropium-albuterol (Duo-Neb) 0.5-2.5 mg/3 mL nebulizer solution 3 mg 3 mg, Nebulization, Once, On Sat10/27/24 at 1600, For 1 doseIndications:Moderate persistent asthma with acute exacerbation Given 10/27/2024 4:00 PM EST 3 mg predniSONE (Deltasone) tablet 10 mg 10 mg, Oral, Once, On Sat10/27/24 at 1600, For 1 dose, 4 tabs of 10mgIndications:Moderate persistent asthma with acute exacerbation Given 10/27/2024 4:00 PM EST 10 mg documented in this encounter Additional Health Concerns Assessment Noted Time PHQ-9 Depression Total Score: 0 01/23/20 24 1:34 PM EDT documented as of this encounter Care Teams Integration Technician Relationship Specialty Start Date End Date Nicole Rivera MD [address] [place] [address] PCP - General Family Medicine 05/01/23 documented as of this encounter
--- OUTSIDE RECORDS SUMMARY | 2024-11-25 16:14 | XMS_ITS | Encounter Summary ---
Author Organization [employer] Address [address] [place] [address] [address] [place] [address] Care Team Providers Care Picking Supervisor Name Role Phone Name, Marv LEMA Primary Care Provider [phone] Nicole Rivera MD Primary Care Provider [phone] Encounter Details Date Type Department Care Team (Late st Contact Info) Description 11/02/2022 Orders Only [facility] MEDICINE [address] [place] [address] Ange Healy, POONAM Social History Tobacco Use Types Packs/Day Years Used Date Smoking Tobacco: Never Smokeless Tobacco: Never Depression Answer Date Recorded Patient Health Questionnaire-9 Score 0 09/24/2022 Comments Unknown Sex and Gender Information Value [...] Description 01/25/2025 2:15 PM EDT Office Visit [facility] MEDICINE [address] [place] [address] Nicole Rivera MD [address] [place] [phone] documented as of this encounter Visit Diagnoses Not on filedocumented in this encounter Additional Health Concerns Assessment Noted Time PHQ-9 Depression Total Score: 0 09/24/20 22 2:46 PM EST documented as of this encounter Care Teams Picking Supervisor Relationship Specialty Start Date End Date Name, MD Marv [address] [place] [address] [place] [address] PCP - General Internal Medicine 11/05/22 04/30/23 Nicole Rivera MD [address] [place] [address] PCP - General Family Medicine 05/01/23 documented as of this encounter
--- OUTSIDE RECORDS SUMMARY | 2024-11-25 16:14 | XMS_ITS | Encounter Summary ---
Author Organization [employer] Address [address] [facility] [facility] [address] [place] [address] Care Team Providers Care Rheostat Assembler Name Role Phone Nicole Rivera MD Primary Care Provider [phone] Encounter Details Date Type Department Care Team (Late st Contact Info) Description 11/25/2024 2:20 PM EST Office Visit [facility] [address] [place], [place] [phone] Mild intermittent asthma without complication (Primary Dx); Dizzy spells Social History Tobacco Use Types Packs/Day Years [...] Sign Reading Time Taken Comments Blood Pressure 155/94 11/25/2024 2:26 PM EST Pulse 106 11/25/2024 2:26 PM EST Temperature 37 ??C (98.6 ??F) 11/25/2024 2:26 PM EST Respiratory Rate 18 11/25/2024 2:26 PM EST Oxygen Saturation 96% 11/25/2024 2:26 PM EST Inhaled Oxygen Concentration - - Weight 84.4 kg (186 lb) 11/25/2024 2:26 PM EST Height 167.6 cm (5' 6 ) 11/25/2024 2:26 PM EST Body Mass Index 30.02 11/25/2024 2:26 PM EST documented in this encounter Plan of Treatment Upcoming Encounters Date Type Department Care Team (Late st Contact Info) Description 01/25/2025 2:15 PM EDT Office Visit [facility] MEDICINE [address] [place] [phone] Nicole Rivera MD [address] [place] [address] Scheduled Orders Name Type Priority Associated Diagnoses Orde r Schedule CBC auto differential Lab Routine Dizzy spells Expected: 11/25/2024 (Approximate), Expires: 11/25/2025 TSH W/Reflex to FT4 Lab Routine Dizzy spells Expected: 11/25/2024 (Approximate), Expires: 11/25/2025 documented as of this encounter Visit Diagnoses Diagnosis Mild intermittent asthma without complication- Primary Dizzy spells Dizziness and giddiness documented in this encounter Additional Health Concerns Assessment Noted Time PHQ-9 Depression Total Score: 0 01/23/20 24 1:34 PM EDT documented as of this encounter Care Teams Rheostat Assembler Relationship Specialty Start Date End Date Nicole Rivera MD [address] [place] [address] PCP - General Family Medicine 05/01/23 documented as of this encounter
--- OUTSIDE RECORDS SUMMARY | 2024-11-25 16:14 | XMS_ITS | Encounter Summary ---
Author Organization [employer] Address [address] [facility] [address] [place] [address] Care Team Providers Care Hide Puller Name Role Phone Nicole Rivera MD Primary Care Provider [phone] Reason for Visit * Reason Onset Date Comments Nurse Triage 10/27/2024 Encounter Details Date Type Department Care Team ([facility] st Contact Info) Description 10/27/2024 Telephone [facility] MEDICINE [address] [place] [address] Nicole Rivera MD [address] [place] [address] Nurse Triage Social History Tobacco Use Types Packs/Day Years [...] encounter Miscellaneous Notes * Telephone Encounter - Maria G Gomez RN - 10/27/2024 9:28 AM EST Call returned to Jw Harris to triage below. Reports having an episode of near fainting/weakness where patient fell onto knees. Pt was walking in the home. Had not done any positional changes. Pt had breakfast prior to this episode. Pt denies any PEDRAZA, Nausea or vomiting. No loss of bladder control during episode of near faint. No LOC. Denies any Head injury. Pt alert and oriented x 3, speaking in clear full sentences. Pt advised of disposition, agrees to seek [facility] for exam as no sick on site availability on teams at time of call. Reviewed [facility] operating hours and that wait times vary. Reviewed home care advise, ER precautions and reasons to call back. Multiple (2) protocols were used on this call. Disposition for Call: See in Office or Video Visit Today Protocol Used: Dizziness (Adult) Protocol-Based Disposition: See in Office or Video Visit Today Positive Triage Question: * Moderate dizziness (e.g., interferes with normal activities) (Exception: Dizziness caused by heatexposure, sudden standing, or poor fluid intake.) * All higher-acuity triage questions were negative Care Advice Discussed: * Reassurance and Education - Dizziness From Not Drinking Enough Liquids * Drink Fluids * Lie Down and Rest * Cool Off * Prevention - Dizziness * Reasons To Call Back - After 2 hours of rest and fluids and you are still feeling dizzy - You pass out (faint) or are too weak to stand - You become worse Protocol Used: Fainting (Adult) Protocol-Based Disposition: See in Office or Video Visit Today Positive Triage Question: * All other patients, and now alert and feels fine (Exception: SIMPLE FAINT due to stress, pain, prolonged standing, or suddenly standing.) * All higher-acuity triage questions were negative Care Advice Discussed: * Treatment - Fainting * Expected Course - Fainting * Prevention - Fainting * Warning Symptoms for Fainting * Test, When in Doubt * Reasons To Call Back - You pass out again on the same day - You become worse * Telephone Encounter - Maria G Gomez RN - 10/27/2024 9:23 AM EST Call returned to Jw Harris for triage below. No answer LVM to return call to [facility] triage line [phone]. * Telephone Encounter - Rafi Nicole - 10/27/2024 9:01 AM EST Symptom: Dizziness Outcome: Transfer to a nurse or provider NOW! Reason: Passed out The caller accepted this outcome. Contact pt at [phone] documented in this encounter Plan of Treatment Upcoming Encounters Date Type Department Care Team (Late st Contact Info) Description 01/25/2025 2:15 PM EDT Office Visit [facility] MEDICINE [address] [place] [address] Nicole Rivera MD [address] [place], [place] [phone] documented as of this encounter Visit Diagnoses Not on filedocumented in this encounter Additional Health Concerns Assessment Noted Time PHQ-9 Depression Total Score: 0 01/23/20 24 1:34 PM EDT documented as of this encounter Care Teams Hide Puller Relationship Specialty Start Date End Date Nicole Rivera MD [address] [place] [address] PCP - General Family Medicine 05/01/23 documented as of this encounter
--- OUTSIDE RECORDS SUMMARY | 2024-11-25 16:14 | XMS_ITS | Encounter Summary ---
Author Organization [employer] Address [address] [facility] [address] [place] [address] Care Team Providers Care Insurance Checker Name Role Phone Nicole Rivera MD Primary Care Provider [phone] Encounter Details Date Type Department Care Team (Late st Contact Info) Description 10/23/2024 Orders Only [facility] MEDICINE [address] [place], [place] [phone] Nicole Rivera MD [address] [place], [place] [phone] Mild intermittent asthma with status asthmaticus Social History Tobacco Use Types Packs/Day Years [...] 01/25/2025 2:15 PM EDT Office Visit [facility] MEDICINE [address] [place] [phone] Nicole Rivera MD [address] [place], [place] [phone] documented as of this encounter Visit Diagnoses Diagnosis Mild intermittent asthma with status asthmaticus documented in this encounter Additional Health Concerns Assessment Noted Time PHQ-9 Depression Total Score: 0 01/23/20 24 1:34 PM EDT documented as of this encounter Care Teams Insurance Checker Relationship Specialty Start Date End Date Nicole Rivera MD [address] [place] [phone] PCP - General Family Medicine 05/01/23 documented as of this encounter
--- OUTSIDE RECORDS SUMMARY | 2024-11-25 16:14 | XMS_ITS | Clinical Summary ---
Author Organization [employer] Address [address] [facility] [address] [place] [address] Care Team Providers Care Photo Technologist Name Role Phone Nicole Rivera MD Primary Care Provider [phone] Allergies No known active allergies Medications cloNIDine (Catapres) 0.2 MG tablet Take 1 tablet by mouth. 04/11/20 20 Active Nebulizers (Comp A-I-R Nebulizer) [facility] for asthma 03/20/20 21 Active escitalopram (Lexapro) 20 MG tablet Take 1 tablet by mouth 1 (one) time each day. Active Bisacodyl EC 5 MG EC tablet Take 2 tablets by mouth at noon the day before the procedure 10/23/19 23 Active LORazepam (Ativan) 0.5 MG tablet Take by mouth. Take 1 tab by mouth twice daily as needed Active atorvastatin (Lipitor) 10 MG tabletIndicatio ns:Essential hypertension Take 1 tablet (10 mg) by mouth at bedtime. 90 tablet 3 12/11/19 24 Active lisinopril 2.5 MG tabletIndicatio ns:Essential hypertension Take 1 tablet (2.5 mg) by mouth in the morning. 90 tablet 3 12/11/19 24 2024 Active Multiple Vitamin (Multivitamin) tabletIndicatio ns:Pain of right upper extremity Take 1 tablet by mouth in the morning. 90 tablet 3 12/11/19 24 Active cholecalciferol (Vitamin D-3) 50 MCG (1999 UT) tabletIndicatio ns:Vitamin D deficiency Take 2,000 Units by mouth at bedtime. 90 tablet 3 12/11/19 24 Active Artificial Tears 0.2-0.2-1 % solutionIndicat ions:Dry eyes INSTILL 1 DROP IN EACH EYE THREE TIMES DAILY 15 mL 11 28/20 24 Active polyvinyl alcohol (Liquifilm Tears) 1.4 % ophthalmic solution PLACE 1 DROP IN EACH EYE THREE TIMES DAILY NEEDED 12/31/19 Active loratadine (Claritin) 10 MG tablet Take 1 tablet (10 mg) by mouth Once per day. 90 tablet 3 03/11/20 24 2024 Active ipratropium-alb uterol (Duo-Neb) 0.5-2.5 mg/3 mL nebulizer solution Take 3 mL by nebulization every 6 (six) hours. 180 mL 03/11/20 24 2024 Active albuterol (2.5 MG/3ML) 0.083% nebulizer solutionIndicat ions:Mild intermittent asthma with status asthmaticus INHALE 1 AMPULE USING A NEBULIZER EVERY 8 HOURS NEEDED 90 mL 03/16/20 Active erythromycin (Romycin) 5 MG/GM ophthalmic ointmentIndicat ions:Dry eye APPLY 1/2 INCH IN THE LEFT EYE EVERY 8 HOURS FOR 10 DAYS 3.5 g 1 04/06/20 Active sucralfate (Carafate) 1 g tablet Take 1 tablet (1 g) by mouth if needed in the morning, at noon, and at bedtime (take with Ibuprofen for stomach pain). Take with Ibuprofen 120 tablet 6 04/14/20 24 2024 Active Ventolin HFA 108 (90 Base) MCG/ACT inhalerIndicati ons:Mild intermittent asthma with status asthmaticus INHALE 1 PUFF BY MOUTH EVERY 6 HOURS NEEDED FOR WHEEZING 18 g 2 05/27/20 24 Active omeprazole (PriLOSEC) [address] capsule Take 1 capsule (20 mg) by mouth before breakfast. Do not crush or chew. 90 capsule 3 07/10/20 24 Active Diclofenac Sodium 1 % gelIndications: Pain of right upper extremity Apply 2 g topically every 6 (six) hours. 100 g 07/10/20 Active amitriptyline (Elavil) 10 MG tablet Take 10 mg by mouth at bedtime. 06/29/20 Active celecoxib (CeleBREX) 200 MG capsule TAKE 1 CAPSULE BY MOUTH EVERY DAY NEEDED FOR PAIN 06/29/20 Active ibuprofen 800 MG tablet Take 800 mg by mouth every 6 (six) hours if needed for mild pain. 05/26/20 24 Active fluconazole (Diflucan) 200 MG tablet Take 1 tablet (200 mg) by mouth 1 (one) time per week. 4 tablet 08/12/20 24 Active budesonide-form oterol (Symbicort) 160-4.5 MCG/ACT inhaler Inhale 2 puffs in the morning and at bedtime. Rinse mouth with water after use to reduce aftertaste and incidence of candidiasis. Do not swallow. 1 each 11 08/12/20 24 2024 Active triamcinolone (Kenalog) 0.025 % creamIndication s:Pain of right upper extremity APPLY A THIN LAYER TO AFFECTED AREA(S) EVERY TWELVE HOURS DIRECTED 30 g 3 09/04/20 24 Active albuterol 108 (90 Base) MCG/ACT inhalerIndicati ons:Mild intermittent asthma with status asthmaticus Inhale 2 puffs every 4 (four) hours. 18 g 11 10/23/19 25 Active lidocaine (Lidoderm) 5 % patchIndication s:Pain of right upper extremity APPLY 1 PATCH TOPICALLY TO SKIN, LEAVE ON FOR 12 HOURS AND OFF FOR 12 HOURS DIRECTED 30 patch 3 11/11/19 25 Active acetaminophen (Tylenol 8 Hour) 650 MG ER tablet Take 1 tablet (650 mg) by mouth every 8 (eight) hours if needed for mild pain. Do not crush, chew, or split. 40 tablet 1 11/23/19 25 2024 Active ondansetron (Zofran) 4 MG tablet Take 1 tablet (4 mg) by mouth every 8 (eight) hours if needed for nausea or vomiting for up to 7 days. 20 tablet 11/23/19 25 2024 Active Spacer/Aero-Hol ding Chambers (AeroChamber MV) inhalerIndicati ons:Mild intermittent asthma without complication Use as instructed 1 each 2 11/25/19 25 Active lidocaine (Lidoderm) 5 % patchIndication s:Pain of right upper extremity APPLY 1 PATCH TOPICALLY TO SKIN, LEAVE ON FOR 12 HOURS AND OFF FOR 12 HOURS DIRECTED 30 patch 3 06/18/20 24 2024 Discontinued predniSONE (Deltasone) 20 MG tablet Take 2 tablets (40 mg) by mouth Once per day for 5 days. 10 tablet 10/27/19 25 2024 Hospital, Clinic, or Other Facility Administered Medication Ordered Dose Route Frequency Start Date End Date Status predniSONE (Deltasone) tablet 10 mgIndications:Marilee te persistent asthma with acute exacerbation 10 mg PO Once 10/27/2024 10/27/2024 Ended ipratropium-albutero l (Duo-Neb) 0.5-2.5 mg/3 mL nebulizer solution 3 mgIndications:Modera te persistent asthma with acute exacerbation 3 mg NEBULIZATION Once 10/27/2024 10/27/2024 Ended Active Problems Problem Noted Date Diagnosed Date Plantar fasciitis, bilateral 07/11/2024 Assessment & Plan (07/11/2024 10:46 AM EDT): Agree with home remedies, daily care with ice and stretching Use Diclofenac gel BID Referral placed to podiatry Localized osteoarthritis of left knee 03/12/2024 Assessment & Plan (04/14/2024 2:58 PM EDT): Ibuprofen with Carafate up to TID Do not recommend buying street drugs Followup with ortho after MRI She says she will not go to PT until MRI is complete Apraxia of eyelid 01/27/2024 Assessment & Plan (01/27/2024 7:53 AM EDT): Will refer to neurology for determination of etiology, neurologic versus psychogenic Treat accordingly Precordial pain 08/30/2023 Assessment & Plan (04/14/2024 2:57 PM EDT): Intermittent fleeting pain that self resolves Echo complete 10/2023 normal EF, no valvular pathology Treadmill test incomplete due to L arm/shoulder pain Stress echo pending vs. CT cardiac calcium? When I hear back from cardiology clinic what the plan is, I will let patient know and she can book accordingly Assessment & Plan (08/30/2023 7:50 AM EST): Intermittent fleeting pain that self resolves No time for EKG today, but need to obtain baseline Will refer to cardiology for potential stress testing Echo for orthopnea Orthopnea 08/28/2023 Tinea versicolor 05/13/2023 Assessment & Plan (08/13/2024 1:56 PM EDT): [place] with oral fluconazole today, still present on trunk Assessment & Plan (05/13/2023 11:26 AM EDT): Fluconazole 200mg once a week x 4 weeks Declines repeat derm referral, will consider if not improving after oral treatment Vitamin D deficiency 05/13/2023 Dry eyes 05/13/2023 Assessment & Plan (01/27/2024 7:54 AM EDT): Switched eye lubricant Re-referred to optometry for consideration of cyclosporine or punctal plugs High cholesterol 11/30/2022 Assessment & Plan (05/13/2023 11:32 AM EDT): Pt declines labs today, continue Atorvastatin nightly Mild intermittent asthma with acute exacerbation 09/24/2022 Assessment & Plan (03/12/2024 11:29 AM EDT): Add daily steroid ICS x 2-4 weeks Allergy meds Duonebs for nebulizer Essential hypertension 10/29/2018 Assessment & Plan (07/11/2024 10:47 AM EDT): Continue Lisinopril 2.5mg daily Assessment & Plan (03/12/2024 11:30 AM EDT): Continue Lisinopril 2.5mg daily Assessment & Plan (01/27/2024 7:55 AM EDT): On Lisinopril 2.5mg daily Echo normal EF and valves Followup with cardiology next month, gave number to [place] [facility] & Plan (12/13/2023 6:33 AM EST): Reordered all of her medications, called [facility] pharmacy to ensure that she can pick them up Encouraged compliance, to let us know if she cannot diamond picker her medications as this is harmful to her health to have high blood pressure and cholesterol that goes untreated Followup with cardiology next month 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 Knee pain 08/11/2018 Pain in wrist 08/11/2018 Anxiety state 04/10/2012 Assessment & Plan (05/13/2023 11:28 AM EDT): Per psych Backache 04/10/2012 Depressive disorder 04/10/2012 Other abnormal clinical finding 04/10/2012 Pain of right upper extremity 04/10/2012 Assessment & Plan (03/12/2024 11:30 AM EDT): Refer to PT Tenosynovitis 04/10/2012 Resolved Problems Problem Noted Date Diagnosed Date Resolved Date Elevated blood-pressure read ing without diagnosis of hypertension 08/11/2018 07/11/2024 Encounters Date Type Department Care Team Description 11/25/2024 2:20 PM EST Office Visit [facility] [address] [place] [phone] Mild intermittent asthma without complication (Primary Dx); Dizzy spells 11/25/2024 Travel 11/25/2024 Telephone [facility] [address] [place] [phone] Nicole Rivera MD Med Refill 11/23/2024 10:30 AM EST Office Visit [address] [address] Tami Ferrara, Vomiting and diarrhea 11/23/2024 Travel 11/11/[address] [address] Nicole Rivera MD Pain of right upper extremity 10/28/2024 Telephone [facility] [address] [place] [phone] Rochelle Gaytan MD 10/27/2024 3:40 PM EST Office Visit [facility] [address] [place] [phone] Rochelle Gaytan MD Moderate persistent asthma with acute exacerbation (Primary Dx); Dizziness 10/27/2024 Telephone [facility] [address] [place] [phone] Xuan Zamora, RN Nurse Triage (Dizziness) 10/27/2024 Telephone [facility] [address] [place] [address] Nicole Rivera MD Nurse Triage 10/23/2024 Orders Only [address] [address] Nicole Rivera MD Mild intermittent asthma with status asthmaticus 10/21/2024 Telephone [facility] [address] [place] [address] Holley Lou, ISIDORO Ventolin Question 10/13/2024 Orders Only [facility] External Provider, [facility] 09/21/2024 Telephone [facility] [address] [place] [phone] Nicole Rivera MD Med Refill 09/03/[address] [address] Nicole Rivera MD Pain of right upper extremity from Last 3 Months Immunizations Name Administration Dates Next Due Hep B, adult 07/31/2012,02/08/2012 Moderna Covid-19 Vaccine 12+ 04/13/2021,03/16/20 21 Tdap 07/25/2022,08/01/2011 Family History Medical History Relation Name Comments Cancer Other Mental illness Other Relation Name Status Comments Other Social History Tobacco Use Types Packs/Day Years [...] Orientation Straight 08/13/2022 10 :21 AM EDT Last Filed Vital Signs Vital Sign Reading [...] Mass Index 30.02 11/25/2024 2:26 PM EST Plan of Treatment Upcoming Encounters Date Type Department Care Team (Late st Contact Info) Description 01/25/2025 2:15 PM EDT Office Visit [facility] [address] [place] [phone] Nicole Rivera MD [address] [place] [address] Health Maintenance Due Date Last Done Comments CT Colonography 1965 Colonoscopy 1965 Colorectal Cancer Screening 1965 FIT DNA/Cologuard 1967 FIT 1965 FOBT 1965 Sigmoidoscopy 1965 Pneumococcal Vaccine: 50+ Years (1 of 2 - PCV) 1986 Hepatitis B Vaccines (3 of 3 - 19+ 3-dose series) 09/25/2012 07/31/2012, 02/08/2012 Zoster Vaccines (1 of 2) 2017 COVID-19 Vaccine (3 - season) 2024 04/13/2021, 03/16/2021 Influenza Vaccine (#1) 2024 Alcohol/Substance Use Screening 01/22/2025 01/23/2024 Depression Screening 01/22/2025 01/23/2024, 01/23/20 SDOH Screening 01/22/2025 01/23/2024 Pap Smear 10/02/2025 10/02/2022 Tobacco Screening 11/25/2025 11/25/2024 Mammogram 02/10/2026 02/11/2024, 10/15, 11/09/2022, Additional history exists Cervical Cancer Screening 10/02/2027 HPV/Cotest 10/02/2027 10/02/2022 Lipid Panel 10/09/2029 10/09/2024, 11/0 05/2022, 02/24/2021 DTaP/Tdap/Td Vaccines (3 - Td or Tdap) 07/25/2032 07/25/2022, 08/01/2011 RSV Patients and Patients Aged 60 years or older (1 - 1-dose 75+ series) 2042 HIV Screening Completed 10/23/2022 Hepatitis C Screening Completed 10/23/2022 HIB Vaccines Aged Out No longer eligi ble based on patient's age to complete this topic HPV Vaccines Aged Out No longer eligi ble based on patient's age to complete this topic Hepatitis A Vaccines Aged Out No long er eligible based on patient's age to complete this topic IPV Vaccines Aged Out No longer eligi ble based on patient's age to complete this topic Meningococcal Vaccine Aged Out No torri johnny eligible based on patient's age to complete this topic RSV under 20 months Aged Out No longe r eligible based on patient's age to complete this topic Rotavirus Vaccines Aged Out No longer eligible based on patient's age to complete this topic Procedures Procedure Name Priority Date/Time Associated Diagnosis Comments POCT INFLUENZA B Routine 11/23/2024 10:1 4 AM EST Vomiting and diarrhea POCT INFLUENZA A Routine 11/23/2024 10:1 4 AM EST Vomiting and diarrhea POCT RAPID STREP A Routine 11/23/2024 10 :10 AM EST Vomiting and diarrhea POCT RAPID COVID ANTIGEN Routine 11/23/2024 10:10 AM EST Vomiting and diarrhea BASIC METABOLIC PANEL Routine 10/27/2024 4:06 PM EST Dizziness CBC WITH AUTO DIFFERENTIAL Routine 10/27/2024 4:[address] UROGRAM WO CONTRAST Routine 10/15/2024 1:11 PM EST T-SPOT(R).TB Routine 10/09/2024 2:37 PM EST Physical exam, pre-employment LIPID PANEL, STANDARD Routine 10/09/2024 2:37 PM EST Essential hypertension COMPREHENSIVE METABOLIC PANEL Routine 10/09/2024 2:37 PM EST Essential hypertension BI MAMMOGRAM SCREENING TOMOSYNTHESIS BILATERAL Routine 02/11/2024 12:45 PM EDT HEPATITIS C ANTIBODY Routine 10/23/2022 4:12 PM EST HIV ANTIBODY/ANTIGEN ([place] DPH) Routine 10/23/2022 4:12 PM EST HPV MRNA E6/E7 REFLEX TO HPV 16, 18/45 Routine 10/02/2022 3:06 PM EST PAP SMEAR Routine 10/02/2022 3:06 PM EST from Last 3 Months or Most Recently Relevant to Health Maintenance Results * POCT Rapid Influenza B OSOM (11/23/2024 10:14 AM EST) [facility] Rapid Influenza B Ag Negative Negative, Indeterminate QC Media Lot # [id number] Lot# Expiration Date ,025 Swab 11/23/2024 10:1 4 AM EST Tami Lowsilva DO POINT OF CARE TEST ENTER/KARLEE T ORDERABLES Final Result * POCT Rapid Influenza A OSOM (11/23/2024 10:14 AM EST) [facility] Rapid Influenza A Ag Negative Negative, Indeterminate QC Media Lot # [id number] Lot# Expiration Date ,025 Swab Nasopharyngeal structure / Unknown 11/23/2024 10:14 AM EST Result [facility] Tami Alem DO POINT OF CARE TEST ENTER/KARLEE T ORDERABLES Final Result * POCT Rapid Covid-19 BinaxNOW (11/23/2024 10:10 AM EST) [facility] Rapid COVID Ag Negative QC Media Lot # [id number] Lot# Expiration Date [id number] Swab 11/23/2024 10:1 0 AM EST Result [facility] Tami Alem DO POINT OF CARE TEST ENTER/KARLEE T ORDERABLES Final Result * POCT Rapid Strep A OSOM (11/23/2024 10:10 AM EST) [facility] Rapid Strep A Screen Negative Negative, None Detected QC Media Lot # [id number] Lot# Expiration Date [id number] Swab 11/23/2024 10:1 0 AM EST Result [facility] Tami Alem DO POINT OF CARE TEST ENTER/KARLEE T ORDERABLES Final Result * (ABNORMAL) CBC auto differential (10/27/2024 4:06 PM EST) [facility] White Blood Count 6.5 4.8 - 10.8 X10*3/uL [facility] Red Blood Count 4.94 4.20 - 5.50 X10*6/uL [facility] Hemoglobin 15.6 12.0 - 16.0 g/dl [facility] Hematocrit 45.8 37.0 - 47.0 % [facility] Mean Corpuscular Volume 92.7 80.0 - 98.0 fL [facility] Mean Corpuscular Hemoglobin 31.6 27.0 - 33.0 pg [facility] Mean Corpuscular HGB Conc 34.1 31.0 - 35.0 g/dl [facility] Red Cell Distribution Width 12.2 11.0 - 16.0 % [facility] Platelet Count 358 160 - 400 X10*3/uL [facility] Mean Platelet Volume 9.5 9.4 - 12.3 fL [facility] Neutrophils Percent Auto 32.6(L) 45 - 73 % [facility] Imm Gran Pct Auto 0.2 0.0 - 0.4 % [facility] Lymphocytes Percent Auto 56.7(H) 20 - 40 % [facility] Monocytes Percent Auto 8.8 2 - 11 % [facility] Eosinophils Percent Auto 1.1 0 - 4 % [facility] Basophils Percent Auto 0.6 0 - 2 % [facility] NRBC Pct Auto 0.0 0.0 - 0.2 /100WBC [facility] Neutrophils Absolute Auto 2.1 2.0 - 8.3 x10*3/uL [facility] Imm Gran Abs Auto 0.01 0.00 - 0.03 X10*3/uL [facility] Lymphocytes Absolute Auto 3.7 1.2 - 4.9 X10*3/uL [facility] Monocytes Absolute Auto 0.6 0.1 - 1.2 X10*3/uL [facility] Eosinophils Absolute Auto 0.1 0.0 - 0.4 X10*3/uL [facility] Basophils Absolute Auto 0.0 0.0 - 0.2 X10*3/uL [facility] NRBC Abs Auto 0.000 0.0 - 0.012 X10*3/uL [facility] Blood Venous blood specimen / Unknown 10/27/2024 4:06 PM EST 10/27/2024 5:13 PM EST Rochelle Gaytan MD LAB BLOOD ORDERABLES Final Resul t Performing Organization Address [facility] Co de Phone Number [facility] [address] [place] [phone] * (ABNORMAL) Basic Metabolic Panel (10/27/2024 4:06 PM EST) Sodium 139 135 - 145 mmol/L [facility] Potassium 3.7 3.3 - 5.1 mmol/L [facility] Chloride 107 96 - 108 mmol/L [facility] Carbon Dioxide 26 22 - 29 mmol/L [facility] Anion Gap 10(L) 12 - 20 [facility] Urea Nitrogen (BUN) 10 9 - 16 mg/dL [facility] Creatinine, Serum 0.78 0.5 - 1.4 mg/dL [facility] Estimated Glomerular Filt Rate >60 [facility] Comment:Chronic Kidney Disea se: Estimated GFR < 60 mL/min/1.46e1Ulkpjs Kidney Disease: Estimated GFR < 15 mL/min/1.73m2 Glucose 113 60 - 115 mg/dL [facility] Calcium 8.7 8.4 - 10.2 mg/dL [facility] Blood Venous blood specimen / Unknown 10/27/2024 4:06 PM EST 10/27/2024 5:13 PM EST Rochelle Gaytan MD LAB BLOOD ORDERABLES Final Resul t Performing Organization Address [facility]/ZIP Co de Phone Number [facility] [address] [place] [phone] * CT Urogram w/o Contrast (10/15/2024 1:11 PM EST) Anatomical Region Laterality Modality Ureter, Upper urinary tract Comp uted Tomography 10/15/2024 1:11 PM EST Narrative 10/15/2024 1:12 PM EST ? [facility] ?[address] ?[place] [address] ? CT Scan Report ? Signed ? Patient: Erick Escutel,Aimett ?MR# ?? : [id number] ? : 1965 ?Acct:[id number] ? Age/Sex: 59 / F ?ADM Date: 10/13/24 ? Loc: HO.CT ? Attending Dr: Salma KELLEY ? Ordering Physician: Salma Melton ?? Date of Service: 10/13/24 ?? Procedure(s): CT urogram ?? Accession Number(s): [id number] ? cc: Salma Melton; Tahmina Brian MD ? Report Number: ?? [id number]: Total DLP = ??814.00 mGy-cm ? CLINICAL HISTORY: R31.0 - Gross hematuria ? CT abdomen and pelvis with and without contrast ? Comparison: None ? Findings: ?? No consolidation or effusion. ? The gallbladder and solid organs are within normal limits. No renal ?? stones. ?? No bowel obstruction, pneumoperitoneum, or pneumatosis. ? Pelvic contents unremarkable. Normal appendix. ?? No acute fracture. ? IMPRESSION: ?? No acute findings. ? This document has been electronically signed by: Gali Yang MD on ?? 10/15/2024 13:11:10 ? Dictated By: ?Gali Yang MD ? Signed By: ?<Electronically signed by Gali Yang MD in OV> ? 10/15/24 1312 ? DD/ 1311 ? TD/TT: 10/15/24 1311 ? Mis Manager: ? Procedure Note Seema, Image - 10/15/[address] [address] [address] Scan Report Signed Patient: Jw GarciaMR# : [id number] : 1965Acct:[id number] Age/Sex: 59 / FADM Date: 10/13/24 Loc: HO.CT Attending Dr: Salma DOUGLASPMaren Ordering Physician: Salma Melton Date of Service: 10/13/24 Procedure(s): CT urogram Accession Number(s): [id number] cc: Salma Melton; Tahmina Brian MD Report Number: [id number]: Total DLP = 814.00 mGy-cm CLINICAL HISTORY: R31.0 - Gross hematuria CT abdomen and pelvis with and without contrast Comparison: None Findings: No consolidation or effusion. The gallbladder and solid organs are within normal limits. No renal stones. No bowel obstruction, pneumoperitoneum, or pneumatosis. Pelvic contents unremarkable. Normal appendix. No acute fracture. IMPRESSION: No acute findings. This document has been electronically signed by: Gali Yang MD on 10/15/2024 13:11:10 Dictated By: Gali Yang MD Signed By: <Electronically signed by Gali Yang MD in OV> 10/15/24 1312 DD/ 1311 TD/TT: 10/15/24 1311 Mis Manager: [facility] External Provider IMG CT PROCEDURES Edited Result - Final * T-SPOT??.TB (10/09/2024 2:37 PM EST) [facility] T Spot TB Negative Negative [facility] Comment:A negative test resu lt does not exclude the possibilityof exposure to or infection with Mycobacteriumtuberculosis (M. tuberculosis). Patients with recentexposure to TB infected individuals exhibiting anegative T-SPOT.TB result should be considered forretesting within 6 weeks or if other relevant clinicalsymptoms indicate. Results from T-SPOT.TB testing mustbe used in conjunction with each individual'sepidemiological history, current medical status,and results of other diagnostic evaluations.The T-SPOT.TB test is qualitative and results arereported as positive, borderline, or negative, giventhat the test controls perform as expected. In linewith the Centers for Disease Control and Prevention's2010 recommendation to report quantitative measurementsalongside the qualitative result, the laboratoryprovides spot counts for informational purposes only.The T-SPOT.TB test should not be interpreted as aquantitative test. TS PANEL A 1 [facility] TS PANEL B 2 [facility] Negative Control Passed [facility] Positive Control Passed [facility] Comment:For additional infor lydia, please refer [email or web address]/faq/AVC956(This link is being provided for informational/educational purposes only.)THIS TEST WAS PERFORMED AT:[employer] [id number] [place] [address]NJBZZECJAIMIE ALBRECHT MD,PHD 10/09/2024 2:37 PM EST 10/09/2024 3:59 PM EST us Nicole Rivera MD LAB BLOOD ORDERABLES Final Res ult [facility] [address] [place] [phone] * (ABNORMAL) Lipid Panel, Standard (10/09/2024 2:37 PM EST) Triglycerides 148 <150 mg/dL [facility] Comment:Desirable Triglyceri de: less than 150 mg/dLBorderline High Triglyceride 150-199 mg/dLHigh Triglyceride: 200-499 mg/dLVery High Triglyceride: greater than or equal to 5OO mg/dL Cholesterol 258(H) <200 mg/dL [facility] Comment:Desirable Cholestero l: less than 200 mg/dLBorderline High Cholesterol: 200-239 mg/dLHigh Cholesterol: greater than 239 mg/dL LDL Cholesterol Calculated 188(H) <100 mg/dL [facility] Comment:Desirable LDL: less than 100 mg/dLNear Optimal/Above Optimal LDL: 110- 129 mg/dLBorderline High LDL: 130-159 mg/dLHigh LDL: 160-189 mg/dLVery High LDL: greater than or equal to 190 mg/dL HDL Cholesterol 41 >40 mg/dL [facility] Comment:Desirable HDL: great er than 40 mg/dL Note: This HDL assay may give artificially low results in patients with liver disease. Blood Venous blood specimen / Unknown 10/09/2024 2:37 PM EST 10/09/2024 3:59 PM EST Nicole Rivera MD LAB BLOOD ORDERABLES Final Res ult [facility] [address] [place] [address] [phone] * (ABNORMAL) Comprehensive Metabolic Panel (10/09/2024 2:37 PM EST) Sodium 138 135 - 145 mmol/L [facility] Potassium 4.3 3.3 - 5.1 mmol/L [facility] Chloride 104 96 - 108 mmol/L [facility] Carbon Dioxide 26 22 - 29 mmol/L [facility] Anion Gap 12 12 - 20 [facility] Urea Nitrogen (BUN) 10 9 - 16 mg/dL [facility] Creatinine, Serum 0.70 0.5 - 1.4 mg/dL [facility] Estimated Glomerular Filt Rate >60 [facility] Comment:Chronic Kidney Disea se: Estimated GFR < 60 mL/min/1.49s0Hcwruy Kidney Disease: Estimated GFR < 15 mL/min/1.73m2 Glucose 99 60 - 115 mg/dL [facility] Calcium 9.0 8.4 - 10.2 mg/dL [facility] Bilirubin, Total 0.7 0.0 - 1.0 mg/dL [facility] Aspartate Amino Transferase 31 5 - 31 U/L [facility] Alanine Aminotransferase 43(H) 0 - 31 U/L [facility] Total Protein 7.9 6.5 - 8.0 g/dL [facility] Albumin Level 4.3 3.5 - 5.0 g/dL [facility] Alkaline Phosphatase 101 39 - 117 U/L [facility] Blood Venous blood specimen / Unknown 10/09/2024 2:37 PM EST 10/09/2024 3:59 PM EST Nicole Nowata MD LAB BLOOD ORDERABLES Final Res ult [facility] [address] [place] [address] [phone] * BI Mammogram Screening Tomosynthesis Bilateral (02/11/2024 12:45 PM EDT) Anatomical Region Laterality Modality Breast Bilateral Mammography 02/11/2024 12:4 5 PM EDT Narrative 03/09/2024 11:59 AM EDT ? [facility] [place] ? [address] ?[place] [address] ? Mammography Report ? Signed ? Patient: Jw Garcia ?MR# ?? : [id number] ? : 1965 ?Acct:[id number] ? Age/Sex: 58 / F ?ADM Date: 02/11/24 ? Loc: HO.MAMMO ? Attending Dr: Tahmina Brian MD ? Ordering Physician: Tahmina Brian MD ?Results: 1Negative ? Date of Service: 02/11/24 ?Follow Up: 1 Year From Orig ?? inal Mammogram ? Procedure(s): MM tomosynthesis screening BI ?? Accession Number(s): [id number] ? cc: Nicole Rivera; Tahmina Brian MD ? EXAMINATION: ?? MM SCREENING DIGITAL BREAST TOMOSYNTHESIS, BILATERAL ? CLINICAL INFORMATION: ? Screening. Asymptomatic. ? COMPARISON: ?? Mammography: This study is compared with prior exams dating back to ?? 2018. ? TECHNIQUE: ?? Digital breast tomosynthesis is performed in both the craniocaudal and ?? mediolateral oblique views along with computer-aided detection (CAD). ?? Synthesized 2D images are generated from the tomosynthesis. ? FINDINGS: ?? There are scattered areas of fibroglandular density (ACR BI-RADS breast ?? composition Category b). ? There are no significant masses, abnormal calcifications, or other ?? abnormalities. ? MM/MM tomosynthesis screening BI ?? IMPRESSION: ?? No mammographic evidence of malignancy. ? ASSESSMENT: ? BI-RADS BI-RADS 1 - Negative ? RECOMMENDATION: ?? Routine annual mammography screening. ? 1 year F/U ? This examination should not preclude the clinical evaluation of a ?? suspicious palpable abnormality. ? This patient's information was entered into a reminder system with a ?? target due date for their next mammogram. ? Dictated By: ?Cheryl Coffey MD ? Signed By: ?<Electronically signed by Cheryl Coffey MD in OV> ? 03/09/24 1155 ? DD/ 1245 ? TD/TT: ? Mis Manager: ? Procedure Note Seema, Image - 03/09/2024 [facility] [address] [place] [address] Mammography Report Signed Patient: Jw Garcia# : [id number] : 1965Acct:[id number] Age/Sex: 58 / FADM Date: 02/11/24 Loc: [facility] Attending Dr: Tahmina Brian MD Ordering Physician: Tahmina Brianesults: 1Negative Date of Service: 02/11/24Follow Up: 1 Year From Orig inal Mammogram Procedure(s): MM tomosynthesis screening BI Accession Number(s): [id number] cc: Nicole Rivera; Tahmina Brian MD EXAMINATION: MM SCREENING DIGITAL BREAST TOMOSYNTHESIS, BILATERAL CLINICAL INFORMATION: Screening. Asymptomatic. COMPARISON: Mammography: This study is compared with prior exams dating back to 2018. TECHNIQUE: Digital breast tomosynthesis is performed in both the craniocaudal and mediolateral oblique views along with computer-aided detection (CAD). Synthesized 2D images are generated from the tomosynthesis. FINDINGS: There are scattered areas of fibroglandular density (ACR BI-RADS breast composition Category b). There are no significant masses, abnormal calcifications, or other abnormalities. MM/MM tomosynthesis screening BI IMPRESSION: No mammographic evidence of malignancy. ASSESSMENT: BI-RADS BI-RADS 1 - Negative RECOMMENDATION: Routine annual mammography screening. 1 year F/U This examination should not preclude the clinical evaluation of a suspicious palpable abnormality. This patient's information was entered into a reminder system with a target due date for their next mammogram. Dictated By: Cheryl Coffey MD Signed By: <Electronically signed by Cheryl Coffey MD in OV> 03/09/24 1155 DD/ 1245 TD/TT: Mis Manager: Tahmina Brian MD IMG BI PROCEDURES Final Result * Hepatitis C Ab (10/23/2022 4:12 PM EST) Hepatitis C Antibody Nonreactive Nonreactive [facility] Comment:Antibodies to HCV no t detected; does not exclude early acuteHCV infection. 10/23/2022 4:12 PM EST 10/23/2022 4:12 PM EST [facility] External Provider LAB BLO OD ORDERABLES Final Result [facility] [address] [place] [address] [phone] * HIV Ab/Ag ([facility]) (10/23/2022 4:12 PM EST) HIV AB/AG Nonreactive Nonreactive [facility] Comment:HIV-1 p24 Ag and/or HIV-1/HIV-2 Ab not detected.A test result that is nonreactive does not exclude thepossibility of exposure to or infection with HIV-1 and/orHIV-2. Nonreactive results in this assay for individualswith prior exposure to HIV-1 and/or HIV-2 may be due toantigen and antibody levels that are below the limit ofdetection of this assay.[employer] HIV Ag/Ab Combo assay result andsupplemental assay results should be interpreted inconjunction with the patient's clinical presentation,history and other laboratory results. If the results areinconsistent with clinical evidence, additional testing issuggested to confirm the result. 10/23/2022 4:12 PM EST 10/23/2022 4:12 PM EST us [facility] External Provider LAB BLO OD ORDERABLES Final Result [facility] [address] [place] [phone] * HPV mRNA E6/E7 w/Reflex to HPV Genotypes 16, 18/45 (10/02/2022 3:06 PM EST) HPV nRNA E6/E7 Not Detected Not Detected [facility] Comment:Methodology: Transcr iption-Mediated AmplificationThis assay detects E6/E7 viral messenger RNA (mRNA) from 14high-risk HPV types (16,18,31,33,35,39,45,51,52,56,58,59,66,68).Cervical sources are required for HPV testing.If a vaginal source from a patient who has had atotal hysterectomy with removal of cervix wassubmitted, please contact the testing laboratoryfor alternative testing options.For additional information, please refer [email or web address]/faq/ZBN424r3(This link if provided for information/educational purposes only.)THIS TEST WAS PERFORMED AT:[employer] [place] [address] ([facility])[place] [address]MTWQETUCKER EVANGELISTA MD HPV mRNA E6/E7 [facility] HPV 16 RNA [facility] HPV 18/45 RNA TNP [facility] 10/02/2022 3:06 PM EST 10/02/2022 4:00 PM EST us [facility] External Provider LAB CYT OLOGY ORDERABLES Final Result [facility] [address] [place] [address] [phone] * Pap Smear (10/02/2022 3:06 PM EST) 10/02/2022 3:06 PM EST 10/02/2022 4:00 PM EST Narrative [facility] - 10/14/2022 2:24 PM EST ----- ------- Name: Jw Garcia ? Age/Sex: 57/F ? : 1965 Unit#: [id number] ?? Attend Dr: Ady Allred MD ?Re10/02/22 ?Status: DEP REF ? Location: HO.LNP ?Disch: ? ----- ------- SPEC : [id number] ?RECD: 10/02/22-1600 ? STATUS: ??SOUT ? REQ NUM: [id number] ? KANA: 10/02/22-1506 ? SUBM DR: Ady Allred MD ? ENTERED: ??10/02/22-1710 ?SP TYPE: Pap Smr ?OTHR DR: Tahmina Brian MD ? ORDERED: ??Pap Smear ? Interpretation ?? Satisfactory for evaluation. ?? Negative for intraepithelial lesion or malignancy. ?? Coccobacilli consistent with shift in vaginal kyle. ? HPV mRNA E6/E7: ?NOT DETECTED ? This assay detects E6/E7 viral messenger RNA (mRNA) from 14 high-risk HPV types (16, 18, ?? 31, 33, 35, 39, 45, 51, 52, 56, 58, 59, 66, 68) ? HPV testing performed by [employer], [place], [place]. ??See reference laboratory ?? portion of the EMR for entire report. ?Clinical Information LMP: No menses Previous PAP test: 01/03/18, WNL ? Material Received ?? ThinPrep-Cervical Copies To: ?? Tahmina Brian MD ?? [address] ?? [place] [address] ? Ady Allred MD ?? [address] [facility] [facility] ?? [place] [address] ?? [phone] ----- ------- Signed (signature on file) Saige Guido Celestino 10/14/221423 ? ----- ------- ? END OF REPORT ? [facility] External Provider LAB CYT OLOG ORDERABLES Final Result [facility] [address] [place] [address] [phone] from Last 3 Months or Most Recently Relevant [place] [id number] [facility] * Guarantor: Jw Garcia Account Type Relation to Patient Date of Phone Billing Address Personal/Family Self [address] [place] [address] * Guarantor: Jw Garcia Account Type Relation to Patient Date of Phone Billing Address Personal/Family Self [address] [place] [address] * Guarantor: Jw Garcia Account Type Relation to Patient Date of Phone Billing Address Personal/Family Self [address] [place] [address] Care Teams Photo Technologist Relationship Specialty Start Date End Date Nicole Rivera MD [address] [place] [address] PCP - General Family Medicine 05/01/23
--- OUTSIDE RECORDS SUMMARY | 2024-11-25 16:14 | XMS_ITS | Encounter Summary ---
Author Organization [employer] Address [address] [facility] 7t [place] [address] Care Team Providers Care Probation Manager Name Role Phone Nicole Rivera MD Primary Care Provider [phone] Reason for Visit * Reason Onset Date Comments Error 01/23/2024 Encounter Details Date Type Department Care Team ([facility] st Contact Info) Description 01/23/[address] [facility] [address], [place] [phone] Nicole Rivera MD [address] [place] [address] Error Social History Tobacco Use Types Packs/Day Years [...] Description 01/25/2025 2:15 PM EDT Office Visit [facility] [address] [place] [address] Nicole Rivera MD [address] [place] [address] documented as of this encounter Visit Diagnoses Not on filedocumented in this encounter Additional Health Concerns Assessment Noted Time PHQ-9 Depression Total Score: 0 01/23/20 24 1:34 PM EDT documented as of this encounter Care Teams Probation Manager Relationship Specialty Start Date End Date Nicole Rivera MD [address] [place] [phone] PCP - General Family Medicine 05/01/23 documented as of this encounter
--- OUTSIDE RECORDS SUMMARY | 2024-11-25 16:14 | XMS_ITS | Encounter Summary ---
Author Organization [email or web address] Address [address] [facility] 7t [place] [address] Care Team Providers Care Geriatric Personal Care Aide Name Role Phone Name, Marv LEMA Primary Care Provider [phone] Nicole Rivera MD Primary Care Provider [phone] Encounter Details Date Type Department Care Team (Late Contact Info) Description 12/26/2022 Orders Only [facility] [address] [place] [address] [phone] Name, MD Marv [address] [place] [phone] Apraxia of eyelid opening (Primary Dx) Social History Tobacco Use Types Packs/Day Years Used Date Smoking Tobacco: Never Smokeless Tobacco: Never Alcohol Use Standard Drinks/Week Comments Not Currently 0 (1 standard drink = 0.6 oz pur e alcohol) Depression Answer Date Recorded Patient Health Questionnaire-9 Score 0 09/24/2022 Comments Unknown Sex and Gender Information Value Date Recorded Sex Assigned at Female 08/13/2022 10:21 AM EDT Legal Sex Female 10:21 AM EDT Gender Identity Female 08/13/2022 10:21 AM EDT Sexual Orientation Straight 08/13/2022 10 :21 AM EDT COVID-19 Exposure Response Date Recorded In the last 10 days, have yo u been in contact with someone who was confirmed or suspected to have Coronavirus/COVID-19? No / Unsure 12/12/2022 3:18 PM EST documented as of this encounter Plan of Treatment Upcoming Encounters Date Type Department Care Team (Late Contact Info) Description 01/25/2025 2:15 PM EDT Office Visit [facility] [address] [place] [phone] Nicole Rivera MD [address] [place] [address] documented as of this encounter Visit Diagnoses Diagnosis Apraxia of eyelid opening- Primary Other symbolic dysfunction documented in this encounter Additional Health Concerns Assessment Noted Time PHQ-9 Depression Total Score: 0 09/24/20 22 2:46 PM EST documented as of this encounter Care Teams Geriatric Personal Care Aide Relationship Specialty Start Date End Date Name, MD Marv [address] [place] [address] PCP - General Internal Medicine 11/05/22 04/30/23 Nicole Rivera MD [address] [place] [address] PCP - General Family Medicine 05/01/23 documented as of this encounter
--- OUTSIDE RECORDS SUMMARY | 2024-11-25 16:14 | XMS_ITS | Encounter Summary ---
Author Organization [employer] Address [address] [facility] [address] [place] [address] Care Team Providers Care Molder Machine Tender Name Role Phone Nicole Rivera MD Primary Care Provider [phone] Reason for Referral * Consultation (Routine) - Closed Specialty Diagnoses / Procedures Referred By Jc delong Referred To Contact Occupational Therapy Diagnoses Right wrist pain Nicole Rivera MD [address] [place] [address] Phone: tel: fax: [facility] Physical Therapy [address] [place] [address] Phone: tel: fax: Referral ID Status Reason Start Date Expiration Date V isits Requested Visits Authorized [id number] Closed Specialty Services Required 04/07/2024 04/07/2025 20 20 Encounter Details Date Type Department Care Team (Late st Contact Info) Description 04/06/2024 Orders Only [facility] [address] [place], [place] [phone] Nicole Rivera MD [address] [place], [place] [phone] Right wrist pain (Primary Dx) Social History Tobacco Use Types [...] Description 01/25/2025 2:15 PM EDT Office Visit [facility] [address] [place] [address] Nicole Rivera MD [address] [place] [address] Scheduled Referrals Name Type Priority Associated Diagnoses Order Schedule Referral to Occupational Therapy Outpatient Referral Routine Right wrist pain Expected: 04/06/2024 (Approximate), Expires: 04/06/2025 documented as of this encounter Visit Diagnoses Diagnosis Right wrist pain- Primary Pain in joint, forearm documented in this encounter Additional Health Concerns Assessment Noted Time PHQ-9 Depression Total Score: 0 01/23/20 24 1:34 PM EDT documented as of this encounter Care Teams Molder Machine Tender Relationship Specialty Start Date End Date Nicole Rivera MD [address] [place] [address] PCP - General Family Medicine 05/01/23 documented as of this encounter
--- OUTSIDE RECORDS SUMMARY | 2024-11-25 16:14 | XMS_ITS | Encounter Summary ---
Author Organization [employer] Address [address] [facility] [address] [place] [address] Care Team Providers Care Lodge Attendant Name Role Phone Nicole Rivera MD Primary Care Provider [phone] Reason for Visit * Reason Onset Date Comments Nurse Triage 10/27/2024 Dizziness Encounter Details Date Type Department Care Team ([facility] st Contact Info) Description 10/27/2024 Telephone [facility] [address] [place] [address] Xuan Zamora, RN [address] [place] [address] Nurse Triage (Dizziness) Social History Tobacco Use Types Packs/Day Years [...] encounter Miscellaneous Notes * Telephone Encounter - Xuan Zamora RN - 10/27/2024 3:40 PM EST Assessment: Patient presents to [facility] c/o dizziness, weakness since last evening. Patient reports she felt like she was going to pass out in the kitchen of her home last and then again this morning when returning home from the clinic (was getting her meds) around 8 am. Patient reports historically she has felt this way when there was something wrong with her blood cells that she had to take medication for (a vitamin or a supplement that she cannot recall the name). Patient reports it was years ago but she self discontinued the vitamin or supplement because it made her nauseous. Patient states she has also been voiding more than usual and has dark brown bowel movements about 4 times daily. Patient denies any diarrhea or constipation, denies blood in urine or bowel movements. Patient reports she is drinking and eating normally. Currently Patient states she feels dizzy. VS as follows (if applicable): Temp 98.2 orally HR 115 Resp 20 BP 134/96 right Arm; Device: Manual Cuff Size: regular O2 sat 96 % on room air Pain level: 0 Hgt 5'6 Wgt 186.2lbs No Known Allergies Current Outpatient Medications Medication Sig Dispense Refill albuterol (2.5 MG/3ML) 0.083% nebulizer solution INHALE 1 AMPULE USING A NEBULIZER EVERY 8 HOURS ASNEEDED 90 mL 11 albuterol 108 (90 Base) MCG/ACT inhaler Inhale 2 puffs every 4 (four) hours. 18 g 11 amitriptyline (Elavil) 10 MG tablet Take 10 mg by mouth at bedtime. Artificial Tears 0.2-0.2-1 % solution INSTILL 1 DROP IN EACH EYE THREE TIMES DAILY 15 mL 11 atorvastatin (Lipitor) 10 MG tablet Take 1 tablet (10 mg) by mouth at bedtime. 90 tablet 3 Bisacodyl EC 5 MG EC tablet Take 2 tablets by mouth at noon the day before the procedure budesonide-formoterol (Symbicort) 160-4.5 MCG/ACT inhaler Inhale 2 puffs in the morning and at bedtime. Rinse mouth with water after use to reduce aftertaste and incidence of candidiasis. Do not swallow. 1 each 11 celecoxib (CeleBREX) 200 MG capsule TAKE 1 CAPSULE BY MOUTH EVERY DAY NEEDED FOR PAIN cholecalciferol (Vitamin D-3) 50 MCG (2000 UT) tablet Take 2,000 Units by mouth at bedtime. 90 tablet 3 cloNIDine (Catapres) 0.2 MG tablet Take 1 tablet by mouth. Diclofenac Sodium 1 % gel Apply 2 g topically every 6 (six) hours. 100 g 11 erythromycin (Romycin) 5 MG/GM ophthalmic ointment APPLY 1/2 INCH IN THE LEFT EYE EVERY 8 HOURS FOR10 DAYS 3.5 g 1 escitalopram (Lexapro) 20 MG tablet Take 1 tablet by mouth 1 (one) time each day. fluconazole (Diflucan) 200 MG tablet Take 1 tablet (200 mg) by mouth 1 (one) time per week. 4 tablet 0 ibuprofen 800 MG tablet Take 800 mg by mouth every 6 (six) hours if needed for mild pain. ipratropium-albuterol (Duo-Neb) 0.5-2.5 mg/3 mL nebulizer solution Take 3 mL by nebulization every 6 (six) hours. 180 mL 11 lidocaine (Lidoderm) 5 % patch APPLY 1 PATCH TOPICALLY TO SKIN, LEAVE ON FOR 12 HOURS AND OFF FOR 12 HOURS DIRECTED 30 patch 3 lisinopril 2.5 MG tablet Take 1 tablet (2.5 mg) by mouth in the morning. 90 tablet 3 loratadine (Claritin) 10 MG tablet Take 1 tablet (10 mg) by mouth Once per day. 90 tablet 3 LORazepam (Ativan) 0.5 MG tablet Take by mouth. Take 1 tab by mouth twice daily as needed Multiple Vitamin (Multivitamin) tablet Take 1 tablet by mouth in the morning. 90 tablet 3 Nebulizers (Comp A-I-R Nebulizer) [facility] omeprazole (PriLOSEC) [address] capsule Take 1 capsule (20 mg) by mouth before breakfast. Do not crush or chew. 90 capsule 3 polyvinyl alcohol (Liquifilm Tears) 1.4 % ophthalmic solution PLACE 1 DROP IN EACH EYE THREE TIMES DAILY NEEDED sucralfate (Carafate) 1 g tablet Take 1 tablet (1 g) by mouth if needed in the morning, at noon, and at bedtime (take with Ibuprofen for stomach pain). Take with Ibuprofen 120 tablet 6 triamcinolone (Kenalog) 0.025 % cream APPLY A THIN LAYER TO AFFECTED AREA(S) EVERY TWELVE HOURS DIRECTED 30 g 3 Ventolin HFA 108 (90 Base) MCG/ACT inhaler INHALE 1 PUFF BY MOUTH EVERY 6 HOURS NEEDED FOR WHEEZING 18 g 2 No current facility-administered medications for this visit. 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 Xuan Zamora, RN documented in this encounter Plan of Treatment Upcoming Encounters Date Type Department Care Team (Late st Contact Info) Description 01/25/2025 2:15 PM EDT Office Visit [facility] [address] [place] [address] Nicole Rivera MD [address] [place] [address] documented as of this encounter Visit Diagnoses Not on filedocumented in this encounter Additional Health Concerns Assessment Noted Time PHQ-9 Depression Total Score: 0 01/23/20 24 1:34 PM EDT documented as of this encounter Care Teams Lodge Attendant Relationship Specialty Start Date End Date Nicole Rivera MD [address] [place] [address] PCP - General Family Medicine 05/01/23 documented as of this encounter
--- OUTSIDE RECORDS SUMMARY | 2024-11-25 16:14 | XMS_ITS | Encounter Summary ---
Author Organization [employer] Address [address] [facility] 7t [place] [address] Care Team Providers Care Import Specialist Name Role Phone Name, Marv LEMA Primary Care Provider [phone] Nicole Rivera MD Primary Care Provider [phone] Reason for Visit * Reason Comments Med Refill Encounter Details Date Type Department Care Team (Late Contact Info) Description 02/01/2023 Refill [facility] [address] [place], [place] [phone] Zulema Silvestre MD [address] [place], [place] [phone] Tinea versicolor Social History Tobacco Use Types Packs/Day Years [...] suspected to have Coronavirus/COVID-19? No / Unsure 01/30/2023 3:10 PM EDT documented as of this encounter Plan of Treatment Upcoming Encounters Date Type Department Care Team ([facility] Contact Info) Description 01/25/2025 2:15 PM EDT Office Visit [facility] [address] [place] [address] Nicole Rivera MD [address] [place] [address] documented as of this encounter Visit Diagnoses Diagnosis Tinea versicolor Pityriasis versicolor documented in this encounter Additional Health Concerns Assessment Noted Time PHQ-9 Depression Total Score: 0 09/24/20 22 2:46 PM EST documented as of this encounter Care Teams Import Specialist Relationship Specialty Start Date End Date Name, MD Marv [address] [place] [address] PCP - General Internal Medicine 11/05/22 04/30/23 Nicole Rivera MD [address] [place] [address] PCP - General Family Medicine 05/01/23 documented as of this encounter
--- OUTSIDE RECORDS SUMMARY | 2024-11-25 16:14 | XMS_ITS | Encounter Summary ---
Author Organization [employer] Address [address] [facility] [address] 7t [place] [address] Care Team Providers Care Ux Visual Designer Name Role Phone Nicole Rivera MD Primary Care Provider [phone] Encounter Details Date Type Department Care Team (Latest Contact Info) Description 11/25/2024 Travel Social History Tobacco Use Types Packs/Day [...] Description 01/25/2025 2:15 PM EDT Office Visit [facility] [address] [place] [address] Nicole Rivera MD [address] [place] [address] documented as of this encounter Visit Diagnoses Not on filedocumented in this encounter Additional Health Concerns Assessment Noted Time PHQ-9 Depression Total Score: 0 01/23/20 24 1:34 PM EDT documented as of this encounter Care Teams Ux Visual Designer Relationship Specialty Start Date End Date Nicole Rivera MD [address] [place] [address] PCP - General Family Medicine 05/01/23 documented as of this encounter
--- OUTSIDE RECORDS SUMMARY | 2024-11-25 16:14 | XMS_ITS | Encounter Summary ---
Author Organization [employer] Address [address] [facility] 7t [place] [address] Care Team Providers Care Back Maker Name Role Phone Name, Marv LEMA Primary Care Provider [phone] Nicole Rivera MD Primary Care Provider [phone] Reason for Visit * Reason Comments Med Refill Encounter Details Date Type Department Care Team (Late Contact Info) Description 02/18/2023 Refill [facility] [address] [place], [place] [phone] Zulema Silvestre MD [address] [place], [place] [phone] Tinea versicolor Social History Tobacco Use Types [...] Upcoming Encounters Date Type Department Care Team ([facility] Contact Info) Description 01/25/2025 2:15 PM EDT Office Visit [facility] [address] [place] [address] Nicole Rivera MD [address] [place] [address] documented as of this encounter Visit Diagnoses Diagnosis Tinea versicolor Pityriasis versicolor documented in this encounter Additional Health Concerns Assessment Noted Time PHQ-9 Depression Total Score: 0 09/24/20 22 2:46 PM EST documented as of this encounter Care Teams Back Maker Relationship Specialty Start Date End Date Name, MD Marv [address] [place] [id number] PCP - General Internal Medicine 11/05/22 04/30/23 Nicole Rivera MD [address] [place] [address] PCP - General Family Medicine 05/01/23 documented as of this encounter
--- OUTSIDE RECORDS SUMMARY | 2024-11-25 16:14 | XMS_ITS | Encounter Summary ---
Author Organization [employer] Address [address] [facility] 7t [place] [address] Care Team Providers Care Wheel Setter Name Role Phone Nicole Rivera MD Primary Care Provider [phone] Reason for Referral * Consultation (Routine) - Closed Specialty Diagnoses / Procedures Referred By Jc delong Referred To Contact Orthopaedic Surgery Diagnoses Acute pain of left knee Nicole Rivera MD [address] [place] [address] Phone: tel: fax: [facility] [address] [place] [address] Phone: tel: Referral ID Status Reason Start Date Expiration Date V isits Requested Visits Authorized [id number] Closed Specialty Services Required 02/07/2024 02/06/2025 6 6 Encounter Details Date Type Department Care Team (Late st Contact Info) Description 02/07/2024 Orders Only [facility] [address] [place] [address] Nicole Rivera MD [address] [place] [address] Acute pain of left knee (Primary Dx) Social History Tobacco Use Types [...] Upcoming Encounters Date Type Department Care Team ([facility] st Contact Info) Description 01/25/2025 2:15 PM EDT Office Visit [facility] [address] [place] [address] Nicole Rivera MD [address] [place] [address] Scheduled Referrals Name Type Priority Associated Diagnoses Order Schedule Referral to Orthopaedic Surgery Outpatient Referral Routine Acute pain of left knee Expected: 02/07/2024 (Approximate), Expires: 02/06/2025 documented as of this encounter Procedures Procedure Name Priority Date/Time Associated Diagnosis Comments XR KNEE 3 VIEWS RIGHT Routine 03/02/2024 11:30 AM EDT BI MAMMOGRAM SCREENING TOMOSYNTHESIS BILATERAL Routine 02/11/2024 12:45 PM EDT documented in this encounter Results * XR Knee 3 Views Right (03/02/2024 11:30 AM EDT) Anatomical Region Laterality Modality Lower Extremities, Knee Right Radiogra phic Imaging 03/02/2024 11:3 0 AM EDT Narrative 03/15/2024 9:49 PM EDT ? [facility] ? [address] ?[place] [address] ?XRay Report ? Signed ? Patient: Jw Garcia ?MR# ?? : [id number] ? : 1965 ?Acct:[id number] ? Age/Sex: 58 / F ?ADM Date: 03/02/24 ? Loc: HO.HOSX ? Attending Dr: Saad Herrera MD ? Ordering Physician: Saad Herrera MD ?? Date of Service: 03/02/24 ?? Procedure(s): XR knee RT 3V ?? Accession Number(s): [id number] ? cc: Nicole Rivera; Saad Herrera MD ? EXAMINATION: ?? XR KNEE, RIGHT ? CLINICAL INFORMATION: ?? Pain in the right knee ? COMPARISON: ?? X-rays of the right knee July 2018. MRI of the right knee October ?? 2019 ? TECHNIQUE: ?? Four views of the right knee. ? FINDINGS: ?? No fracture or joint effusion. Alignment is anatomic. Joint spaces are ?? maintained. No abnormal soft tissue calcification. ? XR/XR knee RT 3V ?? IMPRESSION: ?? Normal right knee. ? Dictated By: ?Abe Lyons MD ? Signed By: ?<Electronically signed by Abe Lyons MD in OV> ?03/15/245 ? DD/ 29 ? TD/TT: ? Information Technology Instructor: WG ? Procedure Note Sana Stephenson - 03/15/2024 [facility] [address] [facility] [address] [place] [address] XRay Report Signed Patient: Willie Garciaheather# : [id number] : 1965Acct:[id number] Age/Sex: 58 / FADM Date: 03/02/24 Loc: HO.HOSX Attending Dr: Saad Herrera MD Ordering Physician: Saad Herrera MD Date of Service: 03/02/24 Procedure(s): XR knee RT 3V Accession Number(s): [id number] cc: Nicole Rivera; Saad Herrera MD EXAMINATION: XR KNEE, RIGHT CLINICAL INFORMATION: Pain in the right knee COMPARISON: X-rays of the right knee July 2018. MRI of the right knee October 2018 TECHNIQUE: Four views of the right knee. FINDINGS: No fracture or joint effusion. Alignment is anatomic. Joint spaces are maintained. No abnormal soft tissue calcification. XR/XR knee RT 3V IMPRESSION: Normal right knee. Dictated By: Abe Lyons MD Signed By: <Electronically signed by Abe Lyons MD inOV> 03/15/24 2145 DD/ 1130 TD/TT: Information Technology Instructor: TADEO [facility] External Provider IMG XR PROCEDURES Edited Result - Final * BI Mammogram Screening Tomosynthesis Bilateral (02/11/2024 12:45 PM EDT) Anatomical Region Laterality Modality Breast Bilateral Mammography 02/11/2024 12:4 5 PM EDT Narrative 03/09/2024 11:59 AM EDT ? [facility] ? [address] ?[place] [address] ? Mammography Report ? Signed ? Patient: Erick Kristopheruteyg,Willieett ?MR# ?? : [id number] ? : 1965 ?Acct:[id number] ? Age/Sex: 58 / F ?ADM Date: 04/30/24 ? Loc: HO.MAMMO ? Attending Dr: Tahmina Brian MD ? Ordering Physician: Tahmina Brian MD ?Results: 1Negative ? Date of Service: 02/11/24 ?Follow Up: 1 Year From Orig ?? inal Mammogram ? Procedure(s): MM tomosynthesis screening BI ?? Accession Number(s): [id number] ? cc: Nicole Rivera; Tahmina Brian MD ? EXAMINATION: ?? MM SCREENING DIGITAL BREAST TOMOSYNTHESIS, BILATERAL ? CLINICAL INFORMATION: ? Screening. Asymptomatic. ? COMPARISON: ?? Mammography: This study is compared with prior exams dating back to ?? 2017. ? TECHNIQUE: ?? Digital breast tomosynthesis is [...] by Cheryl Coffey MD in OV> ? //24 1155 ? DD/DT: 02/10/ 1245 ? TD/TT: ? Information Technology Instructor: ? Procedure Note Donotuseinterpreter, Image - 03/09/20[facility] [address] [place] [address] Mammography Report Signed Patient: Jw GarciaMR# : [id number] : 1965Acct:[id number] Age/Sex: 58 / FADM Date: 02/11/24 Loc: HO.MAMMO Attending Dr: Tahmina Brian MD Ordering Physician: Tahmina Brian MDResults: 1Negative Date of Service: 02/11/24Follow Up: 1 Year From Orig inal Mammogram Procedure(s): MM tomosynthesis screening BI Accession Number(s): [id number] cc: Nicole Rivera; Tahmina Brian MD EXAMINATION: [...] in OV> 03/09/24 1155 DD/ 1245 TD/TT: Information Technology Instructor: us Tahmina Brian MD IMG BI PROCEDURES Final Result documented in this encounter Visit Diagnoses Diagnosis Acute pain of left knee- Primary documented in this encounter Additional Health Concerns Assessment Noted Time PHQ-9 Depression Total Score: 0 01/23/20 24 1:34 PM EDT documented as of this encounter Care Teams Wheel Setter Relationship Specialty Start Date End Date Nicole Rivera MD [address] [place] [address] PCP - General Family Medicine 05/01/23 documented as of this encounter
--- OUTSIDE RECORDS SUMMARY | 2024-11-25 16:14 | XMS_ITS | Encounter Summary ---
Author Organization [email or web address] Address [address] [facility] 7t [place] [address] Care Team Providers Care Automated Teller Manager Name Role Phone Nicole Rivera MD Primary Care Provider [phone] Reason for Referral * Consultation (Routine) - Authorized Specialty Diagnoses / Procedures Referred By Jc t Referred To Contact Pharmacy Diagnoses Essential hypertension Mild intermittent asthma with acute exacerbation Nicole Rivera MD [address] [place] [address] Phone: tel: fax: Referral ID Status Reason Start Date Expiration Date Visits Requested Visits Authorized [id number] Authorized Continuity of Care 07/01/2024 07/01/2025 6 6 Scheduling Instructions For HTN monitoring.titration and asthma education Encounter Details Date Type Department Care Team (Late st Contact Info) Description 07/01/2024 Orders Only [facility] [address] [place], [place] [phone] Nicole Rivera MD [address] [place], [place] [phone] Essential hypertension (Primary Dx); Mild intermittent asthma with acute exacerbation Social History Tobacco Use Types Packs/Day Years [...] your housing situation today? I have randee sing 08/12/[address] you li [...] 2:15 PM EDT Office Visit [facility] [address] [place] [address] Nicole Rivera MD [address] [place] [address] Scheduled Referrals Name Type Priority Associated Diagnoses Orde r Schedule Referral to Pharmacy MTM Outpatient Referral Routine Essential hypertension Mild intermittent asthma with acute exacerbation Ordered: 07/01/2024 documented as of this encounter Procedures Procedure Name Priority Date/Time Associated Diagnosis Comments MR LUMBAR SPINE WO CONTRAST Routine 07/26/2024 7:08 PM EDT documented in this encounter Results * MR Lumbar Spine w/o Contrast (07/26/2024 7:08 PM EDT) Anatomical Region Laterality Modality Spine, L-spine Magnetic Resonan ce 07/26/2024 7:08 PM EDT Narrative 09/24/2024 9:56 AM EST ? [facility] ?[address] ?[place] [address] ? Magnetic Resonance Report ? Signed ? Patient: Erick Escutel,Aimett ?MR# ?? : [id number] ? : 1965 ?Acct:[id number] ? Age/Sex: 58 / F ?ADM Date: 07/26/24 ? Loc: HO.MRI ? Attending Dr: Saad Herrera MD ? Ordering Physician: Saad Herrera MD ?? Date of Service: 07/26/24 ?? Procedure(s): MR lumbar spine wo con ?? Accession Number(s): [id number] ? cc: Nicole Rivera; Saad Herrera MD ? EXAMINATION: ?? MR LUMBAR SPINE WITHOUT CONTRAST ? CLINICAL INFORMATION: ?? Low back pain. Radiates down both posterior legs, worse on the right. ?? Patient fell off horse when younger. ? COMPARISON: ?? No prior. ? TECHNIQUE: ?? Multiplanar multisequence MR imaging of the lumbar spine was done ?? without IV contrast. Examination was performed on a 1.5 Ankita Siemens ?? magnet, utilizing standard sequences. ? FINDINGS: ? CORONAL ALIGNMENT: ?? -Minimal left convex scoliosis, possibly positional. ? SAGITTAL ALIGNMENT: ?? -Normal lordosis. ?? -There is a 2 mm degenerative retrolisthesis of L2 on L3. ?? -Trace degenerative retrolisthesis L3 on L4. ?? -Sagittal Alignment otherwise anatomic. ? LUMBOSACRAL JUNCTION: ?? -Normal. There are 5 dze-wag-ylpuomj lumbar-type vertebral bodies. ? VERTEBRAL BODIES/BONE MARROW: ?? -There is no compression deformity or evidence of acute fracture. No ?? gross bone marrow edema, or abnormal infiltrating bone marrow signal. ?? -Of note, marrow signal somewhat diffusely hypointense on T1-weighted ?? imaging, a nonspecific finding which most likely relates to ?? hematopoietic marrow. This can be seen in smokers as well. ? DISCS: ?? -Moderate loss of disc height and signal at L4-5 and L5-S1, with ?? similar but slightly milder changes at L2-3. Mild disc degeneration ?? L3-4. ?? -Discs above the L2 level are preserved. ? SPINAL CANAL: ?? -No abnormal developmental findings. ? CONUS MEDULLARIS: ?? -Terminates at L1. Morphology and signal is normal. ? INTRADURAL NERVE ROOTS: ?? -Normal in appearance. ?? -No masses or clumping seen. ? Axial Disc Space Images: ? T12-L1: No central canal or neural foraminal narrowing. ? L1-L2: No central canal or neural foraminal narrowing. ? L2-L3: Shallow diffuse disc bulge present, which mildly indents upon ?? the ventral thecal sac but does not contact nerve roots. Minimal ?? hypertrophic facet changes bilaterally with mild posterior ligamentous ?? thickening/infolding. There is mild central canal narrowing, mild ?? bilateral subarticular recess narrowing, and mild left greater than ?? right neural foraminal narrowing. ? L3-L4: There is a shallow diffuse disc bulge which is slightly more ?? prominent right lateral and right foraminal. This indents upon the ?? ventral thecal sac, approaches but does not definitively contact the ?? traversing right L4 roots. There are mild hypertrophic facet changes ?? bilaterally, with mild posterior ligamentous thickening/infolding. ?? Findings result in mild central canal stenosis, mild to moderate right ?? subarticular recess stenosis, and mild bilateral neural foraminal ?? stenosis. ? L4-L5: There is a broad-based disc bulge present concentrically ?? involving both foraminal zones right greater than left, with diffuse ?? annular fissuring. This indents upon the ventral thecal sac, but does ?? not contact nerve roots. There are mild hypertrophic degenerative facet ?? changes with posterior ligamentous infolding/thickening. Combination of ?? findings is resulting in mild central canal stenosis, mild right ?? greater than left subarticular recess stenosis without mass effect upon ?? the traversing L5 roots. There is mild bilateral right greater than ?? left neural foraminal narrowing. ? L5-S1: There is a diffuse disc bulge present with central annular ?? fissuring, indenting upon the ventral thecal sac but not contacting ?? nerve roots. There is mild left ureteral lipomatosis present in the ?? subarticular regions bilaterally. Mild degenerative facet changes ?? bilaterally. There is mild central canal narrowing, no significant ?? subarticular recess narrowing, and mild to moderate bilateral neural ?? foraminal narrowing. ? IMAGED SI JOINTS: ?? 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 ? PARAVERTEBRAL AND INCLUDED EXTRASPINAL SOFT TISSUES: ?? -Normal. ? MR/MR lumbar spine wo con ?? IMPRESSION: ?? 1. Relatively mild lumbar spondylosis as detailed above. There is no ?? significant central canal, lateral recess, or neural foraminal ?? narrowing or nerve root impingement at any level. ?? 2. Degenerative disc disease most prominent at L2-3, L4-5 and L5-S1. ?? 3. Subtle degenerative retrolisthesis L2-3 and L3-4. ?? 4. Additional ancillary findings as detailed in the body of the report. ? Electronically signed by: ??Luis Curry MD ??09/24/2024 09:53 AM EST RP ? Dictated By: ?Luis Curry MD ? Signed By: ?<Electronically signed by Luis Curry MD in OV> ?09/24/24 0953 ? DD/ 07 ? TD/TT: 07/26/241923 ? Cash Controller: ? Procedure Note Seema, Image - 09/25/2024 [place] [address] Magnetic Resonance Report Signed Patient: Jw Garcia# : [id number] : 1965Acct:[id number] Age/Sex: 58 / FADM Date: 07/26/24 Loc: HO.MRI Attending Dr: Saad Herrera MD Ordering Physician: Saad Herrera MD Date of Service: 07/26/24 Procedure(s): MR lumbar spine wo con Accession Number(s): [id number] cc: Nicole Rivera; Saad Herrera MD EXAMINATION: MR LUMBAR SPINE WITHOUT CONTRAST CLINICAL INFORMATION: Low back pain. Radiates down both posterior legs, worse on the right. Patient fell off horse when younger. COMPARISON: No prior. TECHNIQUE: Multiplanar multisequence MR imaging of the lumbar spine was done without IV contrast. Examination was performed on a 1.5 Ankita Siemens magnet, utilizing standard sequences. FINDINGS: CORONAL ALIGNMENT: -Minimal left convex scoliosis, possibly positional. SAGITTAL ALIGNMENT: -Normal lordosis. -There is a 2 mm degenerative retrolisthesis of L2 on L3. -Trace degenerative retrolisthesis L3 on L4. -Sagittal Alignment otherwise anatomic. LUMBOSACRAL JUNCTION: -Normal. There are 5 kwk-pov-amvxzng lumbar-type vertebral bodies. VERTEBRAL BODIES/BONE MARROW: -There is no compression deformity or evidence of acute fracture. No gross bone marrow edema, or abnormal infiltrating bone marrow signal. -Of note, marrow signal somewhat diffusely hypointense on T1-weighted imaging, a nonspecific finding which most likely relates to hematopoietic marrow. This can be seen in smokers as well. DISCS: -Moderate loss of disc height and signal at L4-5 and L5-S1, with similar but slightly milder changes at L2-3. Mild disc degeneration L3-4. -Discs above the L2 level are preserved. SPINAL CANAL: -No abnormal developmental findings. CONUS MEDULLARIS: -Terminates at L1. Morphology and signal is normal. INTRADURAL NERVE ROOTS: -Normal in appearance. -No masses or clumping seen. Axial Disc Space Images: T12-L1: No central canal or neural foraminal narrowing. L1-L2: No central canal or neural foraminal narrowing. L2-L3: Shallow diffuse disc bulge present, which mildly indents upon the ventral thecal sac but does not contact nerve roots. Minimal hypertrophic facet changes bilaterally with mild posterior ligamentous thickening/infolding. There is mild central canal narrowing, mild bilateral subarticular recess narrowing, and mild left greater than right neural foraminal narrowing. L3-L4: There is a shallow diffuse disc bulge which is slightly more prominent right lateral and right foraminal. This indents upon the ventral thecal sac, approaches but does not definitively contact the traversing right L4 roots. There are mild hypertrophic facet changes bilaterally, with mild posterior ligamentous thickening/infolding. Findings result in mild central canal stenosis, mild to moderate right subarticular recess stenosis, and mild bilateral neural foraminal stenosis. L4-L5: There is a broad-based disc bulge present concentrically involving both foraminal zones right greater than left, with diffuse annular fissuring. This indents upon the ventral thecal sac, but does not contact nerve roots. There are mild hypertrophic degenerative facet changes with posterior ligamentous infolding/thickening. Combination of findings is resulting in mild central canal stenosis, mild right greater than left subarticular recess stenosis without mass effect upon the traversing L5 roots. There is mild bilateral right greater than left neural foraminal narrowing. L5-S1: There is a diffuse disc bulge present with central annular fissuring, indenting upon the ventral thecal sac but not contacting nerve roots. There is mild left ureteral lipomatosis present in the subarticular regions bilaterally. Mild degenerative facet changes bilaterally. There is mild central canal narrowing, no significant subarticular recess narrowing, and mild to moderate bilateral neural foraminal narrowing. 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 PARAVERTEBRAL AND INCLUDED EXTRASPINAL SOFT TISSUES: -Normal. MR/MR lumbar spine wo con IMPRESSION: 1. Relatively mild lumbar spondylosis as detailed above. There is no significant central canal, lateral recess, or neural foraminal narrowing or nerve root impingement at any level. 2. Degenerative disc disease most prominent at L2-3, L4-5 and L5-S1. 3. Subtle degenerative retrolisthesis L2-3 and L3-4. 4. Additional ancillary findings as detailed in the body of the report. Electronically signed by: Luis Curry MD 09/24/2024 09:53 AM [facility] Dictated By: Luis Curry MD Signed By: <Electronically signed by Luis Curry MD in OV> 09/24/24 0953 DD/ 07 TD/TT: 07/26/24 192 Cash Controller: [facility] External Provider IMG MRI PROCEDURES Edited Result - Final documented in this encounter Visit Diagnoses Diagnosis Essential hypertension- Primary Unspecified essential hypertension Mild intermittent asthma with acute exacerbation documented in this encounter Additional Health Concerns Assessment Noted Time PHQ-9 Depression Total Score: 0 01/23/20 24 1:34 PM EDT documented as of this encounter Care Teams Automated Teller Manager Relationship Specialty Start Date End Date Nicole Rivera MD [address] [place] [address] PCP - General Family Medicine 05/01/23 documented as of this encounter
[2024-11-25 16:20] LABS: Basophils Percent Auto 0.3 % (0-2); Hematocrit 42.5 % (37.0-47.0); Hemoglobin 14.8 g/dl (12.0-16.0); Imm Gran Abs Auto 0.01 X10*3/uL (0.00-0.03); Imm Gran Pct Auto 0.3 % (0.0-0.4); Lymphocytes Absolute Auto 0.6 X10*3/uL (1.2-4.9); Lymphocytes Percent Auto 22.2 % (20-40); Mean Corpuscular HGB Conc 34.8 g/dl (31.0-35.0); Mean Corpuscular Hemoglobin 32.5 pg (27.0-33.0); Mean Corpuscular Volume 93.2 fL (80.0-98.0); Mean Platelet Volume 9.3 fL (9.4-12.3); Monocytes Absolute Auto 0.1 X10*3/uL (0.1-1.2); Monocytes Percent Auto 3.1 % (2-11); Neutrophils Absolute Auto 2.1 x10*3/uL (2.0-8.3); Neutrophils Percent Auto 74.1 % (45-73); Platelet Count 365 X10*3/uL (160-400); Red Blood Count 4.56 X10*6/uL (4.20-5.50); Red Cell Distribution Width 12.1 % (11.0-16.0); White Blood Count 2.9 X10*3/uL (4.8-10.8)
[2024-11-25 17:03] LABS: TSH reflex Free T4 0.11 uIU/mL (0.32-4.0)
[2024-11-25 19:49] LABS: Free T4 (Free Thyroxine) 1.06 ng/dL (0.71-1.85)
== END 2024-11-25 15:14 | disposition home or self-care (01) ==
LOC: HO.HHCL 15:13
PROVIDERS: Visit Provider Nurse Practitioner
DX: R42 Dizziness and giddiness (principal)
CPT/HCPCS: 36415; 84439; 84443; 85025

== ENCOUNTER 2024-11-27 14:59 | Outpatient (REF) | payer MEDICAID, SELFPAY ==
--- OUTSIDE RECORDS SUMMARY | 2024-11-27 15:01 | XMS_ITS | Clinical Summary ---
Author Organization [employer] Address [address] [facility] 7[address] [place] [address] Care Team Providers Care Experimental Box Tester Name Role Phone Nicole Rivera MD Primary Care Provider [phone] Allergies No known active allergies Medications cloNIDine (Catapres) 0.2 MG tablet Take 1 tablet by mouth. 04/11/20 20 Active Nebulizers (Comp A-I-R Nebulizer) [facility] [place] 03/20/20 21 Active escitalopram (Lexapro) [...] instructed 1 each 2 11/25/19 25 Active Blood Pressure kitIndications: Dizzy spells 1 Units Once per day. 1 kit 11/27/19 25 Active lidocaine (Lidoderm) 5 % patchIndication s:Pain of right upper extremity APPLY 1 PATCH TOPICALLY TO SKIN, LEAVE ON FOR 12 HOURS AND OFF FOR 12 HOURS DIRECTED 30 patch 3 06/18/20 24 2024 Discontinued predniSONE (Deltasone) 20 MG tablet Take 2 tablets (40 mg) by mouth Once per day for 5 days. 10 tablet 10/27/19 25 2024 Active Problems Problem Noted Date Diagnosed Date [...] Assessment & Plan (08/13/2024 1:56 PM EDT): [place] with oral fluconazole today, still present on [...] gave number to call Dr Goode at [facility] [place] Assessment & Plan (12/13/2023 6:33 AM EST): Reordered all of her medications, called [facility] pharmacy to ensure that she can pick them up Encouraged compliance, to let us know if she cannot pickling solution maker her medications as this is harmful to [...] Encounters Date Type Department Care Team Description 11/27/2024 Orders Only [address] [place] [address] Noreen Hopson NP Dizzy spells (Primary Dx); Subclinical hyperthyroidism; Abnormal CBC 11/25/2024 2:20 PM EST Office Visit [facility] [address] Noreen Hopson NP Mild intermittent asthma without complication (Primary Dx); Dizzy spells 11/25/2024 Orders Only [address] [place] [address] Noreen Hopson NP 11/25/2024 Travel 11/25/2024 [address] [place] [address] Nicole Rivera MD Med Refill 11/23/2024 10:30 AM EST Office [address] [address] Tami Ferrara, Vomiting and diarrhea 11/23/2024 Travel 11/11/[address] [address] Nicole Rivera MD Pain of right upper extremity 10/28/[address] [facility] [address] [place], [place] [address] [address] Rochelle Gaytan MD 10/27/2024 3:40 PM EST [facility] [place] [address] Rochelle Gaytan MD Moderate persistent asthma with acute exacerbation (Primary Dx); Dizziness 10/27/[address] [facility] [address] [place] [address] Xuan Zamora, RN Nurse Triage (Dizziness) 10/27/[address] [facility] [address] [place] [address] Nicole Rivera MD Nurse Triage 10/23/2024 Orders Only [address] [address] Nicole Rivera MD Mild intermittent asthma with status asthmaticus 10/21/2024 Telephone [facility] [address] [place] [address] Holley Lou, ISIDORO Ventolin Question 10/13/2024 Orders Only [facility] External Provider, [facility] 09/21/2024 Telephone [facility] [address] [place] [address] Nicole Rivera MD Med Refill 09/03/2024 Refill [facility] [address] [place], [place] [phone] Nicole Rivera MD Pain of right upper [...] 01/25/2025 2:15 PM EDT Office Visit [facility] [address] [place] [address] Nicole Rivera MD [address] [place] [address] Health Maintenance Due Date Last Done Comments [...] Procedure Name Priority Date/Time Associated Diagnosis Comments T4, FREE Routine 11/25/2024 3:15 PM EST TSH W/REFLEX TO FT4 Routine 11/25/2024 3 :15 PM EST Dizzy spells CBC WITH AUTO DIFFERENTIAL Routine 11/25/2024 3:15 PM EST Dizzy spells POCT INFLUENZA B Routine 11/23/2024 10:1 4 [...] Recently Relevant to Health Maintenance Results * (ABNORMAL) TSH W/Reflex to FT4 (11/25/2024 3:15 PM EST) Pathologist [facility] TSH reflex Free T4 0.11(L) 0.32 - 4.0 uIU/mL [facility] Blood Venous blood specimen / Unknown 11/25/2024 3:15 PM EST 11/25/2024 4:12 PM EST Noreen Hopson GL[employer]TER LAB BLOOD ORDERABLES Final Resu lt [facility] [address] [place] [phone] * (ABNORMAL) CBC auto differential (11/25/2024 3:15 PM EST) Only the most recent of2 resultswithin the time period is included. Pathologist [facility] White Blood Count 2.9(L) 4.8 - 10.8 X10*3/uL [facility] Red Blood Count 4.56 4.20 - 5.50 X10*6/uL [facility] Hemoglobin 14.8 12.0 - 16.0 g/dl [facility] Hematocrit 42.5 37.0 - 47.0 % [facility] Mean Corpuscular Volume 93.2 80.0 - 98.0 fL [facility] Mean Corpuscular Hemoglobin 32.5 27.0 - 33.0 pg [facility] Mean Corpuscular HGB Conc 34.8 31.0 - 35.0 g/dl [facility] Red Cell Distribution Width 12.1 11.0 - 16.0 % [facility] Platelet Count 365 160 - 400 X10*3/uL [facility] Mean Platelet Volume 9.3(L) 9.4 - 12.3 fL [facility] Neutrophils Percent Auto 74.1(H) 45 - 73 % [facility] Imm Gran Pct Auto 0.3 0.0 - 0.4 % [facility] Lymphocytes Percent Auto 22.2 20 - 40 % [facility] Monocytes Percent Auto 3.1 2 - 11 % [facility] Eosinophils Percent Auto 0.0 0 - 4 % [facility] Basophils Percent Auto 0.3 0 - 2 % [facility] NRBC Pct Auto 0.0 0.0 - 0.2 /100WBC [facility] Neutrophils Absolute Auto 2.1 2.0 - 8.3 x10*3/uL [facility] Imm Gran Abs Auto 0.01 0.00 - 0.03 X10*3/uL [facility] Lymphocytes Absolute Auto 0.6(L) 1.2 - 4.9 X10*3/uL [facility] Monocytes Absolute Auto 0.1 0.1 - 1.2 X10*3/uL [facility] Eosinophils Absolute Auto 0.0 0.0 - 0.4 X10*3/uL [facility] Basophils Absolute Auto 0.0 0.0 - 0.2 X10*3/uL [facility] NRBC Abs Auto 0.000 0.0 - 0.012 X10*3/uL [facility] Blood Venous blood specimen / Unknown 11/25/2024 3:15 PM EST 11/25/2024 4:12 PM EST us Noreen Hopson [employer] LAB BLOOD ORDERABLES Final Resu lt [facility] [address] [place] [address] [phone] * T4, Free (11/25/2024 3:15 PM EST) Free T4 (Free Thyroxine) 1.06 0.71 - 1.85 ng/dL [facility] 11/25/2024 3:15 PM EST 11/25/2024 4:12 PM EST Noreen Hopson [employer] LAB BLOOD ORDERABLES Final Resu lt [facility] [address] [place] [phone] * POCT Rapid Influenza B OSOM (11/23/2024 10:14 AM EST) Rapid Influenza B Ag Negative Negative, Indeterminate QC Media Lot # [id number] Lot# Expiration Date ,025 Swab 11/23/2024 10:1 4 AM EST Tami Ferrara DO POINT OF CARE TEST ENTER/KARLEE T ORDERABLES Final Result * POCT Rapid Influenza A OSOM (11/23/2024 10:14 AM EST) [facility] Rapid Influenza A Ag Negative Negative, Indeterminate QC Media Lot # [id number] Lot# Expiration Date ,025 Swab Nasopharyngeal structure / Unknown 11/23/2024 10:14 AM EST Tami Alem DO POINT OF CARE TEST ENTER/KARLEE T ORDERABLES Final Result * POCT Rapid Covid-19 BinaxNOW (11/23/2024 10:10 AM EST) [facility] Rapid COVID Ag Negative QC Media Lot # [id number] Lot# Expiration Date [id number] Swab 11/23/2024 10:1 0 AM EST Tami Alem DO POINT OF CARE TEST ENTER/KARLEE T ORDERABLES Final Result * POCT Rapid Strep A OSOM (11/23/2024 10:10 AM EST) [facility] Rapid Strep A Screen Negative Negative, None Detected QC Media Lot # [id number] Lot# Expiration Date [id number] Swab 11/23/2024 10:1 0 AM EST Tami Ferrara DO POINT OF CARE TEST ENTER/KARLEE T ORDERABLES Final Result * (ABNORMAL) Basic Metabolic Panel (10/27/2024 4:06 PM EST) Sodium 139 135 - 145 mmol/L [facility] Potassium 3.7 3.3 - 5.1 mmol/L [facility] Chloride 107 96 - 108 mmol/L [facility] Carbon Dioxide 26 22 - 29 mmol/L [facility] Anion Gap 10(L) 12 - 20 [facility] Urea Nitrogen (BUN) 10 9 - 16 mg/dL [facility] Creatinine, Serum 0.78 0.5 - 1.4 mg/dL [facility] Estimated Glomerular Filt Rate >60 [facility] Comment:Chronic Kidney Disea se: Estimated GFR < 60 mL/min/1.24i1Nlaedp Kidney Disease: Estimated GFR < 15 mL/min/1.73m2 Glucose 113 60 - 115 mg/dL [facility] Calcium 8.7 8.4 - 10.2 mg/dL [facility] Blood Venous blood specimen / Unknown 10/27/2024 4:06 PM EST 10/27/2024 5:13 PM EST Rochelle Gaytan MD LAB BLOOD ORDERABLES Final Resul t [facility] [address] [place] [address] [phone] * CT Urogram w/o Contrast (10/15/2024 1:11 PM EST) Anatomical Region Laterality Modality Ureter, Upper urinary tract Comp uted Tomography 10/15/2024 1:11 PM EST Narrative 10/15/2024 1:12 PM EST ? [facility] ?[address] ?[place] [address] ? CT Scan Report ? Signed ? Patient: Erick Escutel,Aimett ?MR# ?? : [id number] ? : 1965 ?Acct:[id number] ? Age/Sex: 59 / F ?ADM Date: 10/13/24 ? Loc: HO.CT ? Attending Dr: Salma KELLEY ? Ordering Physician: Salma Melton ?? Date of Service: 10/13/24 ?? Procedure(s): CT urogram ?? Accession Number(s): [id number] ? cc: Salma Melton; Tahmina Brian MD ? Report Number: ?? [id number]: Total DLP = ??814.00 mGy-cm ? CLINICAL [...] by Gali Yang MD in OV> ? 10/15/242 ? DD/ 10 ? TD/TT: 10/15/241310 ? Candy Bar Attendant: ? Procedure Note Sana Stephenson - 10/15/[address] [place] [address] [address] Scan Report Signed Patient: Jw Garcia# : [id number] : 1965Acct:[id number] Age/Sex: 59 / FADM Date: 10/13/24 Loc: HO.CT Attending Dr: Salma KELLEY Ordering Physician: Salma Melton Date of Service: 10/13/24 Procedure(s): CT urogram Accession Number(s): [id number] cc: Salma Melton; Tahmina Brian MD Report Number: [id number]: Total DLP = 814.00 mGy-cm CLINICAL HISTORY: [...] 10/15/24 1312 DD/ 1311 TD/TT: 10/15/24 1311 Candy Bar Attendant: [facility] External Provider IMG CT PROCEDURES Edited Result - Final * T-SPOT??.TB (10/09/2024 2:37 PM EST) T Spot TB Negative Negative [facility] Comment:A negative test resu lt [...] as aquantitative test. TS PANEL A 1 [facility] TS PANEL B 2 [facility] Negative Control Passed [facility] Positive Control Passed [facility] Comment:For additional infor lydia, please refer tohttp://education.tic/faq/BLL337(This link is being provided for informational/educational purposes only.)THIS TEST WAS PERFORMED AT:[employer] [place] [address]SZGMQAPJAIMIE ALBRECHT MD,PHD 10/09/2024 2:37 PM EST 10/09/2024 3:59 PM EST Nicole Rivera MD LAB BLOOD ORDERABLES Final Res ult Performing Organization Address City/[facility] Co de Phone Number [facility] [address] [place] [phone] * (ABNORMAL) Lipid Panel, Standard (10/09/2024 2:37 PM EST) Triglycerides 148 <150 mg/dL [facility] Comment:Desirable Triglyceri de: less than 150 mg/dLBorderline High Triglyceride 150-199 mg/dLHigh Triglyceride: 200-499 mg/dLVery High Triglyceride: greater than or equal to 5OO mg/dL Cholesterol 258(H) <200 mg/dL [facility] Comment:Desirable Cholestero l: less than 200 mg/dLBorderline High Cholesterol: 200-239 mg/dLHigh Cholesterol: greater than 239 mg/dL LDL Cholesterol Calculated 188(H) <100 mg/dL [facility] Comment:Desirable LDL: less than 100 mg/dLNear Optimal/Above Optimal LDL: 110- 129 mg/dLBorderline High LDL: 130-159 mg/dLHigh LDL: 160-189 mg/dLVery High LDL: greater than or equal to 190 mg/dL HDL Cholesterol 41 >40 mg/dL [facility] Comment:Desirable HDL: great er than 40 mg/dL Note: This HDL assay may give artificially low results in patients with liver disease. Blood Venous blood specimen / Unknown 10/09/2024 2:37 PM EST 10/09/2024 3:59 PM EST Nicole Rivera MD LAB BLOOD ORDERABLES Final Res ult Performing Organization Address [facility]/ZIP Co de Phone Number [facility] [address] [place] [address] [phone] * (ABNORMAL) Comprehensive Metabolic Panel (10/09/2024 2:37 PM EST) Sodium 138 135 - 145 mmol/L [facility] Potassium 4.3 3.3 - 5.1 mmol/L [facility] Chloride 104 96 - 108 mmol/L [facility] Carbon Dioxide 26 22 - 29 mmol/L [facility] Anion Gap 12 12 - 20 [facility] Urea Nitrogen (BUN) 10 9 - 16 mg/dL [facility] Creatinine, Serum 0.70 0.5 - 1.4 mg/dL [facility] Estimated Glomerular Filt Rate >60 [facility] Comment:Chronic Kidney Disea se: Estimated GFR < 60 mL/min/1.92u4Ttgaty Kidney Disease: Estimated GFR < 15 mL/min/1.73m2 Glucose 99 60 - 115 mg/dL [facility] Calcium 9.0 8.4 - 10.2 mg/dL [facility] Bilirubin, Total 0.7 0.0 - 1.0 mg/dL [facility] Aspartate Amino Transferase 31 5 - 31 U/L [facility] Alanine Aminotransferase 43(H) 0 - 31 U/L [facility] Total Protein 7.9 6.5 - 8.0 g/dL [facility] Albumin Level 4.3 3.5 - 5.0 g/dL [facility] Alkaline Phosphatase 101 39 - 117 U/L [facility] Blood Venous blood specimen / Unknown 10/09/2024 2:37 PM EST 10/09/2024 3:59 PM EST us Nicole Rivera MD LAB BLOOD ORDERABLES Final Res ult Performing Organization Address [facility]/ZIP Co de Phone Number [facility] [address] [place] [address] [phone] * BI Mammogram Screening Tomosynthesis Bilateral (02/11/2024 12:45 PM EDT) Anatomical Region Laterality Modality Breast Bilateral Mammography 02/11/2024 12:4 5 PM EDT Narrative 03/09/2024 11:59 AM EDT ? [facility] ? [address] ?[place] [address] ? Mammography Report ? Signed ? Patient: Erick SummersuteJw ronquillo ?MR# ?? : [id number] ? : 1965 ?Acct:[id number] ? Age/Sex: 58 / F ?ADM Date: 02/11/24 ? Loc: HO.MAMMO ? Attending Dr: Tahmina Brian MD ? Ordering Physician: Tahmina Brian MD ?Results: 1Negative ? Date of Service: 02/11/24 ?Follow Up: 1 Year From Orig ?? inal Mammogram ? Procedure(s): MM tomosynthesis screening BI ?? Accession Number(s): [id number] ? cc: Nicole Rivera; Tahmina Brian MD [...] 1155 ? DD/ 1245 ? TD/TT: ? Candy Bar Attendant: ? Procedure Note [place], Image - 03/09/2024 [facility] [address] [place] [address] Mammography Report Signed Patient: Jw GarciaMR# : [id number] : 1965Acct:[id number] Age/Sex: 58 / FADM Date: 02/11/24 Loc: COLBY Attending Dr: Tahmina Brian MD Ordering Physician: Tahmina Brian MDResults: 1Negative Date of Service: 02/11/24Follow Up: 1 Year From Orig inal Mammogram Procedure(s): MM tomosynthesis screening BI Accession Number(s): [id number] cc: Nicole Rivera; Tahmina Brian MD EXAMINATION: [...] in OV> 03/09/24 1155 DD/ 1245 TD/TT: Candy Bar Attendant: Tahmina Brian MD IMG BI PROCEDURES Final Result * Hepatitis C Ab (10/23/2022 4:12 PM EST) Hepatitis C Antibody Nonreactive Nonreactive [facility] Comment:Antibodies to HCV no t detected; does not exclude early acuteHCV infection. 10/23/2022 4:12 PM EST 10/23/2022 4:12 PM EST [facility] External Provider LAB BLO OD ORDERABLES Final Result [facility] [address] [place] [phone] * HIV Ab/Ag ([facility]) (10/23/2022 4:12 PM EST) HIV AB/AG Nonreactive Nonreactive [facility] Comment:HIV-1 p24 Ag and/or HIV-1/HIV-2 Ab not detected.A test result that is nonreactive does not exclude thepossibility of exposure to or infection with HIV-1 and/orHIV-2. Nonreactive results in this assay for individualswith prior exposure to HIV-1 and/or HIV-2 may be due toantigen and antibody levels that are below the limit ofdetection of this assay.The [employer]ion Adjuster HIV Ag/Ab Combo assay result andsupplemental assay results should be interpreted inconjunction with the patient's clinical presentation,history and other laboratory results. If the results areinconsistent with clinical evidence, additional testing issuggested to confirm the result. 10/23/2022 4:12 PM EST 10/23/2022 4:12 PM EST us [facility] External Provider LAB BLO OD ORDERABLES Final Result [facility] [address] [place] [address] [phone] * HPV mRNA E6/E7 w/Reflex to HPV Genotypes 16, 18/45 (10/02/2022 3:06 PM EST) HPV nRNA E6/E7 Not Detected Not Detected [facility] Comment:Methodology: Transcr iption-Mediated AmplificationThis assay detects E6/E7 viral messenger RNA (mRNA) from 14high-risk HPV types (16,18,31,33,35,39,45,51,52,56,58,59,66,68).Cervical sources are required for HPV testing.If a vaginal source from a patient who has had atotal hysterectomy with removal of cervix wassubmitted, please contact the testing laboratoryfor alternative testing options.For additional information, please refer tohttp://education.tic/faq/KSF397i3(This link if provided for information/educational purposes only.)THIS TEST WAS PERFORMED AT:[employer] [place] [address] (1)[place] [address]PZUFNTUCKER EVANGELISTA MD HPV mRNA E6/E7 [facility] HPV 16 RNA [facility] HPV 18/45 RNA [facility] 10/02/2022 3:06 PM EST 10/02/2022 4:00 PM EST us [facility] External Provider LAB CYT SURJIT ORDERABLES Final Result [facility] [address] [place] [address] [phone] * Pap Smear (10/02/2022 3:06 PM EST) 10/02/2022 3:06 PM EST 10/02/2022 4:00 PM EST Narrative [facility] - 10/14/2022 2:24 PM EST ----- ------- Name: Jw Garcia ? Age/Sex: 57/F ? : 1965 Unit#: [id number] ?? Attend Dr: Ady Allred MD ?Re10/02/22 ?Status: DEP REF ? Location: HO.LNP ?Disch: ? ----- ------- SPEC : [id number] ?RECD: 10/02/22-1599 ? STATUS: ??SOUT ? REQ NUM: [id number] ? KANA: 10/02/22-1506 ? SUBM DR: Ady [...] 66, 68) ? HPV testing performed by [facility], [place], [place]. ??See reference laboratory ?? portion of the EMR for entire report. ?Clinical Information LMP: No menses Previous PAP test: 01/03/18, WNL ? Material Received ?? ThinPrep-Cervical Copies To: ?? Tahmina Brian MD ?? [address] ?? [place] [address] ? Ady Allred MD ?? [address] ?? [place] [address] ?? [phone] ----- ------- Signed (signature on file) Saige Tirado 10/14/22 1424 ? ----- ------- ? END OF REPORT ? [facility] External Provider LAB CYT OLOG ORDERABLES Final Result [facility] [address] [place] [address] [phone] from Last 3 Months or Most Recently Relevant to Health Maintenance Insurance [facility] Care Teams Experimental Box Tester Relationship Specialty Start Date End Date Nicole Rivera MD [address] [place] [address] PCP - General Family Medicine 05/01/23
--- OUTSIDE RECORDS SUMMARY | 2024-11-27 15:01 | XMS_ITS | Encounter Summary ---
Author Organization [employer] Address [address] [facility] [address] [place] [address] Care Team Providers Care Supervisor Stone Name Role Phone Name, Marv LEMA Primary Care Provider [phone] Nicole Rivera MD Primary Care Provider [phone] Reason for Visit * Reason Comments Med Refill Encounter Details Date Type Department Care Team (Late Contact Info) Description 02/18/2023 Refill [facility] [address] [place], [place] [phone] Zulema Silvestre MD [address] [place], [place] [phone] Tinea versicolor Social History Tobacco Use Types [...] Upcoming Encounters Date Type Department Care Team ([facility] Contact Info) Description 01/25/2025 2:15 PM EDT Office Visit [facility] [address] [place] [address] Nicole Rivera MD [address] [place] [address] documented as of this encounter Visit Diagnoses Diagnosis Tinea versicolor Pityriasis versicolor documented in this encounter Additional Health Concerns Assessment Noted Time PHQ-9 Depression Total Score: 0 09/24/20 22 2:46 PM EST documented as of this encounter Care Teams Supervisor Stone Relationship Specialty Start Date End Date Name, MD Marv [address] [place] [phone] PCP - General Internal Medicine 11/05/22 04/30/23 Nicole Rivera MD [address] [place] [phone] PCP - General Family Medicine 05/01/23 documented as of this encounter
--- OUTSIDE RECORDS SUMMARY | 2024-11-27 15:01 | XMS_ITS | Encounter Summary ---
Author Organization [employer] Address [address] [facility] [address]t [place] [address] Care Team Providers Care Inclusion Internship Name Role Phone Nicole Rivera MD Primary Care Provider [phone] Reason for Visit * Reason Onset Date Comments Med Refill 11/25/2024 Encounter Details Date Type Department Care Team ([facility] st Contact Info) Description 11/25/2024 Telephone [facility] [address] [place] [address] Nicole Rivera MD [address] [place] [address] Med Refill Social History Tobacco Use Types [...] now. Pt reports [facility] will [facility], waiting for their son to pick them [...] 20 MG tablet To be sent to: [facility] pharmacy documented in this encounter Plan of Treatment Upcoming Encounters Date Type Department Care Team (Late st Contact Info) Description 01/25/2025 2:15 PM EDT Office Visit [facility] [address] [place] [address] Nicole Rivera MD [address] [place] [phone] documented as of this encounter Visit Diagnoses Not on filedocumented in this encounter Additional Health Concerns Assessment Noted Time PHQ-9 Depression Total Score: 0 01/23/20 24 1:34 PM EDT documented as of this encounter Care Teams Inclusion Internship Relationship Specialty Start Date End Date Nicole Rivera MD [address] [place] [phone] PCP - General Family Medicine 05/01/23 documented as of this encounter
--- OUTSIDE RECORDS SUMMARY | 2024-11-27 15:01 | XMS_ITS | Encounter Summary ---
Author Organization [employer] Address 75 [facility] 7t [place] [address] Care Team Providers Care Stitching Department Supervisor Name Role Phone Nicole Rivera MD Primary Care Provider [phone] Reason for Referral * Consultation (Routine) - Closed Specialty Diagnoses / Procedures Referred By Jc delong Referred To Contact Orthopaedic Surgery Diagnoses Acute pain of left knee Nicole Rivera MD [address] [place] [address] Phone: tel: fax: [facility] [place] [facility] [address] [place] [address] Phone: tel: Referral ID Status Reason Start Date Expiration Date V isits Requested Visits Authorized [id number] Closed Specialty Services Required 02/07/2024 02/06/2025 6 6 Encounter Details Date Type Department Care Team (Late st Contact Info) Description 02/07/2024 Orders Only [facility] MEDICINE [address] [place] [address] Nicole Rivera MD [address] [place] [address] Acute pain of left knee (Primary Dx) [...] Upcoming Encounters Date Type Department Care Team ([facility] st Contact Info) Description 01/25/2025 2:15 PM EDT Office Visit [facility] MEDICINE [address] [place] [address] Nicole Rivera MD [address] [place] [address] Scheduled Referrals Name Type Priority Associated Diagnoses [...] [address] ?[place] [address] ?XRay Report ? Signed ? Patient: Jw Garcia ?MR# ?? : [id number] ? : 1965 ?Acct:[id number] ? Age/Sex: 58 / F ?ADM Date: 03/02/24 ? Loc: HO.HOSX ? Attending Dr: Saad Herrera MD ? Ordering Physician: Saad Herrera MD ?? Date of Service: 03/02/24 ?? Procedure(s): XR knee RT 3V ?? Accession Number(s): [id number] ? cc: Nicole Rivera; Saad Herrera MD [...] ?03/15/245 ? DD/ 29 ? TD/TT: ? Apprentice Plant Attendant: WG ? Procedure Note Sana Stephenson - 03/15/2024 [facility] [address] [facility] [address] [place] [address] XRay Report Signed Patient: Willie Garciaheather# : [id number] : 1965Acct:[id number] Age/Sex: 58 / FADM Date: 03/02/24 Loc: HO.HOSX Attending Dr: Saad Herrera MD Ordering Physician: Saad Herrera MD Date of Service: 03/02/24 Procedure(s): XR knee RT 3V Accession Number(s): [id number] cc: Nicole Rivera; Saad Herrera MD EXAMINATION: [...] MD inOV> 03/15/24 2145 DD/ 1130 TD/TT: Apprentice Plant Attendant: TADEO [facility] External Provider IMG XR PROCEDURES Edited Result - Final * BI Mammogram Screening Tomosynthesis Bilateral (02/11/2024 12:45 PM EDT) Anatomical Region Laterality Modality Breast Bilateral Mammography 02/11/2024 12:4 5 PM EDT Narrative 03/09/2024 11:59 AM EDT ? [facility] ? [address] ?[place] [address] ? Mammography Report ? Signed ? Patient: Erick Kristopheruteyg,Willieett ?MR# ?? : [id number] ? : 1965 ?Acct:[id number] ? Age/Sex: 58 / F ?ADM Date: 04/30/24 ? Loc: HO.MAMMO ? Attending Dr: Tahmina Brian MD ? Ordering Physician: Tahmina Brian MD ?Results: 1Negative ? Date of Service: 02/11/24 ?Follow Up: 1 Year From Orig ?? inal Mammogram ? Procedure(s): MM tomosynthesis screening BI ?? Accession Number(s): [id number] ? cc: Nicole Rivera; Tahmina Brian MD [...] ? DD/DT: 02/10/ 1245 ? TD/TT: ? Apprentice Plant Attendant: ? Procedure Note Donotuseinterpreter, Image - [facility]/09/2024 [facility] [address] [place] [address] Mammography Report Signed Patient: Jw GarciaMR# : [id number] : 1965Acct:[id number] Age/Sex: 58 / FADM Date: 02/11/24 Loc: HO.MAMMO Attending Dr: Tahmina Brian MD Ordering Physician: Tahmina Brian MDResults: 1Negative Date of Service: 02/11/24Follow Up: 1 Year From Orig inal Mammogram Procedure(s): MM tomosynthesis screening BI Accession Number(s): [id number] cc: Nicole Rivera; Tahmina Brian MD EXAMINATION: [...] in OV> 03/09/24 1155 DD/ 1245 TD/TT: Apprentice Plant Attendant: us Tahmina Brian MD IMG BI PROCEDURES Final Result documented in this encounter Visit Diagnoses Diagnosis Acute pain of left knee- Primary documented in this encounter Additional Health Concerns Assessment Noted Time PHQ-9 Depression Total Score: 0 01/23/20 24 1:34 PM EDT documented as of this encounter Care Teams Stitching Department Supervisor Relationship Specialty Start Date End Date Nicole Rivera MD [address] [place] [address] PCP - General Family Medicine 05/01/23 documented as of this encounter
--- OUTSIDE RECORDS SUMMARY | 2024-11-27 15:01 | XMS_ITS | Encounter Summary ---
Author Organization [employer] Address [address] [facility] [address] 7t h Floor [place] [id number] Care Team Providers Care Police Chief Deputy Name Role Phone Nicole Rivera MD Primary Care Provider [phone] Reason for Visit * Reason Comments Diarrhea Encounter Details Date Type Department Care Team ([facility] st Contact Info) Description 11/23/2024 10:30 AM EST Office Visit [facility] MEDICINE [address] [place], [place] [phone] Tami Ferrara DO [address] [place] [address] Vomiting and diarrhea Social History Tobacco Use [...] Description 01/25/2025 2:15 PM EDT Office Visit [facility] MEDICINE [address] [place] [address] Nicole Rivera MD [address] [place] [address] documented as of this encounter Procedures Procedure [...] Influenza B OSOM (11/23/2024 10:14 AM EST) [facility] Rapid Influenza B Ag Negative Negative, Indeterminate QC Media Lot # [id number] Lot# Expiration Date [id number] Swab 11/23/2024 10:1 4 AM EST Tami Ferrara DO POINT OF CARE TEST ENTER/KARLEE T ORDERABLES Final Result * POCT Rapid Influenza A OSOM (11/23/2024 10:14 AM EST) [facility] Rapid Influenza A Ag Negative Negative, Indeterminate QC Media Lot # [id number] Lot# Expiration Date [id number] Swab Nasopharyngeal structure / Unknown 11/23/2024 10:14 AM EST Tami Ferrara DO POINT OF CARE TEST ENTER/KARLEE T ORDERABLES Final Result * POCT Rapid Strep A OSOM (11/23/2024 10:10 AM EST) [facility] Rapid Strep A Screen Negative Negative, None Detected QC Media Lot # [id number] Lot# Expiration Date [id number] Swab 11/23/2024 10:1 0 AM EST Tami Ferrara DO POINT OF CARE TEST ENTER/KARLEE T ORDERABLES Final Result * POCT Rapid Covid-19 BinaxNOW (11/23/2024 10:10 AM EST) [facility] Rapid COVID Ag Negative QC Media Lot # [id number] Lot# Expiration Date [id number] Swab 11/23/2024 10:1 0 AM EST Tami Lowsilva DO POINT OF CARE TEST ENTER/KARLEE T ORDERABLES Final Result documented in this encounter Visit Diagnoses Diagnosis Vomiting and diarrhea documented in this encounter Additional Health Concerns Assessment Noted Time PHQ-9 Depression Total Score: 0 01/23/20 24 1:34 PM EDT documented as of this encounter Care Teams Police Chief Deputy Relationship Specialty Start Date End Date Nicole Rivera MD [address] [place] [address] PCP - General Family Medicine 05/01/23 documented as of this encounter
--- OUTSIDE RECORDS SUMMARY | 2024-11-27 15:01 | XMS_ITS | Encounter Summary ---
Author Organization [employer] Address [address] [facility] [address] 7t [place] [address] Care Team Providers Care Dinking Machine Operator Name Role Phone Nicole Rivera MD Primary Care Provider [phone] Encounter Details Date Type Department Care Team [...] Description 01/25/2025 2:15 PM EDT Office Visit [facility] MED[facility]INE [address] [place] [address] Nicole Rivera MD [address] [place] [address] documented as of this encounter Visit Diagnoses Not on filedocumented in this encounter Additional Health Concerns Assessment Noted Time PHQ-9 Depression Total Score: 0 01/23/20 24 1:34 PM EDT documented as of this encounter Care Teams Dinking Machine Operator Relationship Specialty Start Date End Date Nicole Rivera MD [address] [place] [address] PCP - General Family Medicine 05/01/23 documented as of this encounter
--- OUTSIDE RECORDS SUMMARY | 2024-11-27 15:01 | XMS_ITS | Encounter Summary ---
Author Organization [employer] Address 75 [facility] 7t [place] [address] Care Team Providers Care Wheelchair Van Operator First Responder Name Role Phone Nicole Rivera MD Primary Care Provider [phone] Reason for Visit * Reason Onset Date Comments Error 01/23/2024 Encounter Details Date Type Department Care Team ([facility] st Contact Info) Description 01/23/2024 Telephone [facility] MEDICINE [address] [place], [place] [phone] Nicole Rivera MD [address] [place] [address] Error Social History Tobacco Use Types Packs/Day [...] Description 01/25/2025 2:15 PM EDT Office Visit [facility] MEDICINE [address] [place] [address] Nicole Rivera MD [address] [place] [address] documented as of this encounter Visit Diagnoses Not on filedocumented in this encounter Additional Health Concerns Assessment Noted Time PHQ-9 Depression Total Score: 0 01/23/20 24 1:34 PM EDT documented as of this encounter Care Teams Wheelchair Van Operator First Responder Relationship Specialty Start Date End Date Nicole Rivera MD [address] [place] [address] PCP - General Family Medicine 05/01/23 documented as of this encounter
--- OUTSIDE RECORDS SUMMARY | 2024-11-27 15:01 | XMS_ITS | Encounter Summary ---
Author Organization [employer] Address [address] [place] [address] 7 [place] [address] Care Team Providers Care Wardrobe Supervisor Name Role Phone Name, Marv LEMA Primary Care Provider [phone] Nicole Rivera MD Primary Care Provider [phone] Encounter Details Date Type Department Care Team (Late st Contact Info) Description 11/02/2022 Orders Only [facility] MEDICINE [address] [place] [address] Ange Healy, POONAM Social History Tobacco Use [...] Description 01/25/2025 2:15 PM EDT Office Visit [facility] MEDICINE [address] [place] [address] Nicole Rivera MD [address] [place] [address] documented as of this encounter Visit Diagnoses Not on filedocumented in this encounter Additional Health Concerns Assessment Noted Time PHQ-9 Depression Total Score: 0 09/24/20 22 2:46 PM EST documented as of this encounter Care Teams Wardrobe Supervisor Relationship Specialty Start Date End Date Name, MD Marv [address] [place] [address] [place] [address] PCP - General Internal Medicine 11/05/22 04/30/23 Nicole Rivera MD [address] [place] [address] PCP - General Family Medicine 05/01/23 documented as of this encounter
--- OUTSIDE RECORDS SUMMARY | 2024-11-27 15:01 | XMS_ITS | Encounter Summary ---
Author Organization [employer] Address [address] [facility] [address] 7t [place] [address] Care Team Providers Care Coal Bagger Name Role Phone Nicole Rivera MD Primary Care Provider [phone] Encounter Details Date Type Department Care Team (Late st Contact Info) Description 11/27/2024 Orders Only [facility] MEDICINE [address] [place], [place] [phone] Noreen Hopson NP [address] [place] [address] Dizzy spells (Primary Dx); Subclinical hyperthyroidism; Abnormal CBC Social History Tobacco Use Types Packs/Day Years [...] Description 01/25/2025 2:15 PM EDT Office Visit [facility] MEDICINE [address] [place] [address] Nicole Rivera MD [address] [place] [address] Scheduled Orders Name Type Priority Associated Diagnoses Orde r Schedule T3, Total Lab Routine Subclinical hyperthyroidism Expected: 11/27/2024 (Approximate), Expires: 11/27/2025 CBC auto differential Lab Routine Abnormal CBC Expected: 11/27/2024 (Approximate), Expires: 11/27/2025 documented as of this encounter Visit Diagnoses Diagnosis Dizzy spells- Primary Dizziness and giddiness Subclinical hyperthyroidism Thyrotoxicosis without mention of goiter or other cause, without mention of thyrotoxic crisis or storm Abnormal CBC Other abnormal blood chemistry documented in this encounter Additional Health Concerns Assessment Noted Time PHQ-9 Depression Total Score: 0 01/23/20 24 1:34 PM EDT documented as of this encounter Care Teams Coal Bagger Relationship Specialty Start Date End Date Nicole Rivera MD [address] [place] [phone] PCP - General Family Medicine 05/01/23 documented as of this encounter
--- OUTSIDE RECORDS SUMMARY | 2024-11-27 15:01 | XMS_ITS | Encounter Summary ---
Author Organization [employer] Address [address] [facility] [address] 7t [place] [address] Care Team Providers Care Senior Controls Engineer Name Role Phone Nicole Rivera MD Primary Care Provider [phone] Encounter Details Date Type Department Care Team [...] Description 01/25/2025 2:15 PM EDT Office Visit [facility] [address] [place] [address] Nicole Rivera MD [address] [place] [address] documented as of this encounter Visit Diagnoses Not on filedocumented in this encounter Additional Health Concerns Assessment Noted Time PHQ-9 Depression Total Score: 0 01/23/20 24 1:34 PM EDT documented as of this encounter Care Teams Senior Controls Engineer Relationship Specialty Start Date End Date Nicole Rivera MD [address] [place] [address] PCP - General Family Medicine 05/01/23 documented as of this encounter
--- OUTSIDE RECORDS SUMMARY | 2024-11-27 15:01 | XMS_ITS | Encounter Summary ---
Author Organization [employer] Address 75 [facility] 7t [place] [address] Care Team Providers Care Mechanical Engineering Advisor Name Role Phone Nicole Rivera MD Primary Care Provider [phone] Reason for Visit * Reason Comments Med Refill Encounter Details Date Type Department Care Team ([facility] st Contact Info) Description 11/11/2024 Refill [facility] MEDICINE [address] [place], [place] [phone] Nicole Rivera MD [address] [place] [address] Pain of right upper extremity Social History [...] Description 01/25/2025 2:15 PM EDT Office Visit [facility] MEDICINE [address] [place] [address] Nicole Rivera MD [address] [place] [address] documented as of this encounter Visit Diagnoses Diagnosis Pain of right upper extremity documented in this encounter Additional Health Concerns Assessment Noted Time PHQ-9 Depression Total Score: 0 01/23/20 24 1:34 PM EDT documented as of this encounter Care Teams Mechanical Engineering Advisor Relationship Specialty Start Date End Date Nicole Rivera MD [address] [place] [address] PCP - General Family Medicine 05/01/23 documented as of this encounter
--- OUTSIDE RECORDS SUMMARY | 2024-11-27 15:01 | XMS_ITS | Encounter Summary ---
Author Organization [employer] Address [address] [facility] [address] 7t [place] [address] Care Team Providers Care Prints And Drawings Curator Name Role Phone Nicole Rivera MD Primary Care Provider [phone] Encounter Details Date Type Department Care Team (Late st Contact Info) Description 10/23/2024 Orders Only [facility] MEDICINE [address] [place], [place] [phone] Nicole Rivera MD [address] [place], [place] [phone] Mild intermittent asthma with status asthmaticus Social [...] EDT Office Visit [facility] MEDICINE [address] [place] [address] Nicole Rivera MD [address] [place], [place] [phone] documented as of this encounter Visit Diagnoses Diagnosis Mild intermittent asthma with status asthmaticus documented in this encounter Additional Health Concerns Assessment Noted Time PHQ-9 Depression Total Score: 0 01/23/20 24 1:34 PM EDT documented as of this encounter Care Teams Prints And Drawings Curator Relationship Specialty Start Date End Date Nicole Rivera MD [address] [place] [phone] PCP - General Family Medicine 05/01/23 documented as of this encounter
--- OUTSIDE RECORDS SUMMARY | 2024-11-27 15:01 | XMS_ITS | Encounter Summary ---
Author Organization [employer] Address [address] 7t [place] [address] Care Team Providers Care Operator Maintainer Name Role Phone Nicole Rivera MD Primary Care Provider [phone] Encounter Details Date Type Department Care Team (Late st Contact Info) Description 10/28/2024 Telephone [facility] [address] [place] [address] Rochelle Gaytan MD [address] [place] [address] Social History Tobacco Use Types Packs/Day Years [...] AM EST ----- Pt was seen in [facility] .Labs WNL documented in this encounter Plan of Treatment Upcoming Encounters Date Type Department Care Team (Late st Contact Info) Description 01/25/2025 2:15 PM EDT Office Visit [facility] MEDICINE [address] [place] [address] Nicole Rivera MD [address] [place] [address] documented as of this encounter Visit Diagnoses Not on filedocumented in this encounter Additional Health Concerns Assessment Noted Time PHQ-9 Depression Total Score: 0 01/23/20 24 1:34 PM EDT documented as of this encounter Care Teams Operator Maintainer Relationship Specialty Start Date End Date Nicole Rivera MD [address] [place] [address] PCP - General Family Medicine 05/01/23 documented as of this encounter
--- OUTSIDE RECORDS SUMMARY | 2024-11-27 15:01 | XMS_ITS | Encounter Summary ---
Author Organization [employer] Address 75 [facility] 7t [place] [address] Care Team Providers Care Plate Washer Name Role Phone Name, Marv LEMA Primary Care Provider [phone] Nicole Rivera MD Primary Care Provider [phone] Encounter Details Date Type Department Care Team (Late Contact Info) Description 12/26/2022 Orders Only [facility] MEDICINE [address] [place] [phone] Name, MD Marv [address] [place] [address] Apraxia of eyelid opening (Primary Dx) Social [...] 01/25/2025 2:15 PM EDT Office Visit [facility] MEDICINE [address] [place] [phone] Nicole Rivera MD [address] [place] [address] documented as of this encounter Visit Diagnoses Diagnosis Apraxia of eyelid opening- Primary Other symbolic dysfunction documented in this encounter Additional Health Concerns Assessment Noted Time PHQ-9 Depression Total Score: 0 09/24/20 22 2:46 PM EST documented as of this encounter Care Teams Plate Washer Relationship Specialty Start Date End Date Name, MD Marv [address] [place] [address] PCP - General Internal Medicine 11/05/22 04/30/23 Nicole Rivera MD [address] [place] [address] PCP - General Family Medicine 05/01/23 documented as of this encounter
--- OUTSIDE RECORDS SUMMARY | 2024-11-27 15:01 | XMS_ITS | Encounter Summary ---
Author Organization [employer] Address [address] [facility] [address] 7t [place] [address] Care Team Providers Care Paymaster Of Purses Name Role Phone Nicole Rivera MD Primary Care Provider [phone] Encounter Details Date Type Department Care Team (Late st Contact Info) Description 11/25/2024 Orders Only [facility] MEDICINE [address] [place], [place] [phone] Noreen Hopson NP [address] [place] [address] Social History Tobacco Use Types Packs/Day Years [...] Description 01/25/2025 2:15 PM EDT Office Visit [facility] MEDICINE [address] [place] [address] Nicole Rivera MD [address] [place] [phone] documented as of this encounter Procedures Procedure Name Priority Date/Time Associated Diagnosis Comments T4, FREE Routine 11/25/2024 3:15 PM EST documented in this encounter Results * T4, Free (11/25/2024 3:15 PM EST) Free T4 (Free Thyroxine) 1.06 0.71 - 1.85 ng/dL [facility] 11/25/2024 3:15 PM EST 11/25/2024 4:12 PM EST Noreen Hopson CORPORATE SECURITY OFFICER LAB BLOOD ORDERABLES Final Resu lt [facility] [address] [place] [phone] documented in this encounter Visit Diagnoses Not on filedocumented in this encounter Additional Health Concerns Assessment Noted Time PHQ-9 Depression Total Score: 0 01/23/20 24 1:34 PM EDT documented as of this encounter Care Teams Paymaster Of Purses Relationship Specialty Start Date End Date Nicole Rivera MD [address] [place] [address] PCP - General Family Medicine 05/01/23 documented as of this encounter
--- OUTSIDE RECORDS SUMMARY | 2024-11-27 15:01 | XMS_ITS | Encounter Summary ---
Author Organization [employer] Address 75 [facility] 7t [place] [address] Care Team Providers Care Knockout Worker Name Role Phone Name, Marv LEMA Primary Care Provider [phone] Nicole Rivera MD Primary Care Provider [phone] Reason for Visit * Reason Comments Med Refill Encounter Details Date Type Department Care Team (Late Contact Info) Description 02/01/2023 Refill [facility] MEDICINE [address] [place], [place] [phone] Zulema Silvestre MD [address] [place], [place] [phone] Tinea versicolor Social History Tobacco Use Types [...] Upcoming Encounters Date Type Department Care Team ([facility] Contact Info) Description 01/25/2025 2:15 PM EDT Office Visit [facility] MEDICINE [address] [place] [address] Nicole Rivera MD [address] [place] [address] documented as of this encounter Visit Diagnoses Diagnosis Tinea versicolor Pityriasis versicolor documented in this encounter Additional Health Concerns Assessment Noted Time PHQ-9 Depression Total Score: 0 09/24/20 22 2:46 PM EST documented as of this encounter Care Teams Knockout Worker Relationship Specialty Start Date End Date Name, MD Marv [address] [place] [address] PCP - General Internal Medicine 11/05/22 04/30/23 Nicole Rivera MD [address] [place] [address] PCP - General Family Medicine 05/01/23 documented as of this encounter
--- OUTSIDE RECORDS SUMMARY | 2024-11-27 15:01 | XMS_ITS | Encounter Summary ---
Author Organization [employer] Address [address] 7[address] [place] [address] Care Team Providers Care Premix Operator Concentrate Name Role Phone Nicole Rivera MD Primary Care Provider [phone] Encounter Details Date Type Department Care Team (Late st Contact Info) Description 11/25/2024 2:20 PM EST Office Visit [facility] [address] [place], [place] [phone] Noreen Hopson NP [address] [place] [address] Mild intermittent asthma without complication (Primary Dx); [...] Description 01/25/2025 2:15 PM EDT Office Visit [facility] [address] [place] [address] Nicole Rivera MD [address] [place] [address] documented as of this encounter Procedures Procedure Name Priority Date/Time Associated Diagnosis Comments TSH W/REFLEX TO FT4 Routine 11/25/2024 3 :15 PM EST Dizzy spells CBC WITH AUTO DIFFERENTIAL Routine 11/25/2024 3:15 PM EST Dizzy spells documented in this encounter Results * (ABNORMAL) TSH W/Reflex to FT4 (11/25/2024 3:15 PM EST) TSH reflex Free T4 0.11(L) 0.32 - 4.0 uIU/mL [facility] Blood Venous blood specimen / Unknown 11/25/2024 3:15 PM EST 11/25/2024 4:12 PM EST Noreen Linares PICTURE FRAMES INSPECTOR LAB BLOOD ORDERABLES Final Resu lt [facility] [address] [place], [place] [phone] * (ABNORMAL) CBC auto differential (11/25/2024 3:15 PM EST) White Blood Count 2.9(L) 4.8 - 10.8 X10*3/uL [facility] Red Blood Count 4.56 4.20 - 5.50 X10*6/uL [facility] Hemoglobin 14.8 12.0 - 16.0 g/dl [facility] Hematocrit 42.5 37.0 - 47.0 % [facility] Mean Corpuscular Volume 93.2 80.0 - 98.0 fL [facility] Mean Corpuscular Hemoglobin 32.5 27.0 - 33.0 pg [facility] Mean Corpuscular HGB Conc 34.8 31.0 - 35.0 g/dl [facility] Red Cell Distribution Width 12.1 11.0 - 16.0 % [facility] Platelet Count 365 160 - 400 X10*3/uL [facility] Mean Platelet Volume 9.3(L) 9.4 - 12.3 fL [facility] Neutrophils Percent Auto 74.1(H) 45 - 73 % [facility] Imm Gran Pct Auto 0.3 0.0 - 0.4 % [facility] Lymphocytes Percent Auto 22.2 20 - 40 % [facility] Monocytes Percent Auto 3.1 2 - 11 % [facility] Eosinophils Percent Auto 0.0 0 - 4 % [facility] Basophils Percent Auto 0.3 0 - 2 % [facility] NRBC Pct Auto 0.0 0.0 - 0.2 /100WBC [facility] Neutrophils Absolute Auto 2.1 2.0 - 8.3 x10*3/uL [facility] Imm Gran Abs Auto 0.01 0.00 - 0.03 X10*3/uL [facility] Lymphocytes Absolute Auto 0.6(L) 1.2 - 4.9 X10*3/uL [facility] Monocytes Absolute Auto 0.1 0.1 - 1.2 X10*3/uL [facility] Eosinophils Absolute Auto 0.0 0.0 - 0.4 X10*3/uL [facility] Basophils Absolute Auto 0.0 0.0 - 0.2 X10*3/uL [facility] NRBC Abs Auto 0.000 0.0 - 0.012 X10*3/uL [facility] Blood Venous blood specimen / Unknown 11/25/2024 3:15 PM EST 11/25/2024 4:12 PM EST Noreen Hopson PICTURE FRAMES INSPECTOR LAB BLOOD ORDERABLES Final Resu lt [facility] [address] [place] [address] [phone] documented in this encounter Visit Diagnoses Diagnosis Mild intermittent asthma without complication- Primary Dizzy spells Dizziness and giddiness documented in this encounter Additional Health Concerns Assessment Noted Time PHQ-9 Depression Total Score: 0 01/23/20 24 1:34 PM EDT documented as of this encounter Care Teams Premix Operator Concentrate Relationship Specialty Start Date End Date Nicole Rivera MD [address] [place] [phone] PCP - General Family Medicine 05/01/23 documented as of this encounter
--- OUTSIDE RECORDS SUMMARY | 2024-11-27 15:01 | XMS_ITS | Encounter Summary ---
Author Organization [employer] Address [address] [facility] 7t [place] [address] Care Team Providers Care Management Coordinator Name Role Phone Nicole Rivera MD Primary Care Provider [phone] Reason for Referral * Consultation (Routine) - Authorized Specialty Diagnoses / Procedures Referred By Jc delong Referred To Contact Pharmacy Diagnoses Essential hypertension Nicole Rivera MD [address] [place] [address] Phone: tel: fax: Referral ID Status Reason Start Date Expiration Date Visits Requested Visits Authorized [id number] Authorized Consult and Treat 08/20/2024 08/20/2025 6 6 Encounter Details Date Type Department Care Team (Late st Contact Info) Description 08/20/2024 Orders Only [facility] [address] [place], [place] [phone] Nicole Rivera MD [address] [place], [place] [phone] Essential hypertension (Primary Dx) Social History Tobacco [...] Description 01/25/2025 2:15 PM EDT Office Visit [facility] [address] [place] [address] Nicole Rivera MD [address] [place] [address] Scheduled Referrals Name Type Priority Associated Diagnoses Orde r Schedule Referral to Pharmacy CDTM Outpatient Referral Routine Essential hypertension Ordered: 08/20/2024 documented as of this encounter Visit Diagnoses Diagnosis Essential hypertension- Primary Unspecified essential hypertension documented in this encounter Additional Health Concerns Assessment Noted Time PHQ-9 Depression Total Score: 0 01/23/20 24 1:34 PM EDT documented as of this encounter Care Teams Management Coordinator Relationship Specialty Start Date End Date Nicole Rivera MD [address] [place] [address] PCP - General Family Medicine 05/01/23 documented as of this encounter
--- OUTSIDE RECORDS SUMMARY | 2024-11-27 15:02 | XMS_ITS | Encounter Summary ---
Author Organization [employer] Address [address] [facility] 7t [place] [address] Care Team Providers Care Hydraulic Lift Driver Name Role Phone Nicole Rivera MD Primary Care Provider [phone] Reason for Referral * Consultation (Routine) - Authorized Specialty Diagnoses / Procedures Referred By Jc t Referred To Contact Pharmacy Diagnoses Essential hypertension Mild intermittent asthma with acute exacerbation Nicole Rivera MD [address] [place] [address] Phone: tel: fax: Referral ID Status Reason Start Date Expiration Date Visits Requested Visits Authorized [id number] Authorized Continuity of Care 07/01/2024 07/01/2025 6 6 Scheduling Instructions For HTN monitoring.titration and asthma education Encounter Details Date Type Department Care Team (Late st Contact Info) Description 07/01/2024 Orders Only [facility] [address] [place], [place] [phone] Nicole Rivera MD [address] [place], [place] [phone] Essential hypertension (Primary Dx); Mild intermittent asthma [...] Description 01/25/2025 2:15 PM EDT Office Visit [facility] [address] [place] [address] Nicole Rivera MD [address] [place] [address] Scheduled Referrals Name Type Priority Associated Diagnoses [...] EDT Narrative 09/24/2024 9:56 AM EST ? [facility] ?[address] ?[place] [address] ? Magnetic Resonance Report ? Signed ? Patient: Erick Escutel,Aimett ?MR# ?? : [id number] ? : 1965 ?Acct:[id number] ? Age/Sex: 58 / F ?ADM Date: 07/26/24 ? Loc: HO.MRI ? Attending Dr: Saad Herrera MD ? Ordering Physician: Saad Herrera MD ?? Date of Service: 07/26/24 ?? Procedure(s): MR lumbar spine wo con ?? Accession Number(s): [id number] ? cc: Nicole Rivera; Saad Herrera MD [...] LUMBOSACRAL JUNCTION: ?? -Normal. There are 5 ufp-vuq-donliig lumbar-type vertebral bodies. ? VERTEBRAL BODIES/BONE MARROW: [...] ? DD/ 07 ? TD/TT: 07/26/241923 ? Laboratory Tester: ? Procedure Note Seema, Image - 09/25/2024 [place] [address] Magnetic Resonance Report Signed Patient: Jw Garcia# : [id number] : 1965Acct:[id number] Age/Sex: 58 / FADM Date: 07/26/24 Loc: HO.MRI Attending Dr: Saad Herrera MD Ordering Physician: Saad Herrera MD Date of Service: 07/26/24 Procedure(s): MR lumbar spine wo con Accession Number(s): [id number] cc: Nicole Rivera; Saad Herrera MD EXAMINATION: [...] anatomic. LUMBOSACRAL JUNCTION: -Normal. There are 5 odf-qtu-qufvyii lumbar-type vertebral bodies. VERTEBRAL BODIES/BONE MARROW: -There [...] by: Luis Curry MD 09/24/2024 09:53 AM [facility] Dictated By: Luis Curry MD Signed By: <Electronically signed by Luis Curry MD in OV> 09/24/24 0953 DD/ 07 TD/TT: 07/26/24 192 Laboratory Tester: [facility] External Provider IMG MRI PROCEDURES Edited Result - Final documented in this encounter Visit Diagnoses Diagnosis Essential hypertension- Primary Unspecified essential hypertension Mild intermittent asthma with acute exacerbation documented in this encounter Additional Health Concerns Assessment Noted Time PHQ-9 Depression Total Score: 0 01/23/20 24 1:34 PM EDT documented as of this encounter Care Teams Hydraulic Lift Driver Relationship Specialty Start Date End Date Nicole Rivera MD [address] [place] [address] PCP - General Family Medicine 05/01/23 documented as of this encounter
--- OUTSIDE RECORDS SUMMARY | 2024-11-27 15:02 | XMS_ITS | Encounter Summary ---
Author Organization [employer] Address [address] [facility] [address] [place] [address] Care Team Providers Care Probate Judge Name Role Phone Nicole Rivera MD Primary Care Provider [phone] Reason for Referral * Consultation (Routine) - Closed Specialty Diagnoses / Procedures Referred By Jc delong Referred To Contact Occupational Therapy Diagnoses Right wrist pain Nicole Rivera MD [address] [place] [address] Phone: tel: fax: [facility] Physical Therapy [address] [place] [address] Phone: tel: fax: Referral ID Status Reason Start Date Expiration Date V isits Requested Visits Authorized [id number] Closed Specialty Services Required 04/07/2024 04/07/2025 20 20 Encounter Details Date Type Department Care Team (Late st Contact Info) Description 04/06/2024 Orders Only [facility] [address] [place], [place] [phone] Nicole Rivera MD [address] [place], [place] [phone] Right wrist pain (Primary Dx) Social History [...] [facility] [address] [place] [address] Nicole Rivera MD [address] [place] [address] Scheduled Referrals Name Type Priority Associated Diagnoses [...] documented as of this encounter Care Teams Probate Judge Relationship Specialty Start Date End Date Nicole Rivera MD [address] [place] [address] PCP - General Family Medicine 05/01/23 documented as of this encounter
[2024-11-27 16:21] LABS: MANUAL DIFF FLAG NO
[2024-11-27 16:28] LABS: Basophils Percent Auto 0.6 % (0-2); Eosinophils Absolute Auto 0.1 X10*3/uL (0.0-0.4); Eosinophils Percent Auto 1.8 % (0-4); Hematocrit 43.8 % (37.0-47.0); Hemoglobin 14.8 g/dl (12.0-16.0); Imm Gran Abs Auto 0.03 X10*3/uL (0.00-0.03); Imm Gran Pct Auto 0.6 % (0.0-0.4); Lymphocytes Absolute Auto 2.3 X10*3/uL (1.2-4.9); Lymphocytes Percent Auto 46.8 % (20-40); Mean Corpuscular HGB Conc 33.8 g/dl (31.0-35.0); Mean Corpuscular Hemoglobin 32.1 pg (27.0-33.0); Mean Platelet Volume 9.5 fL (9.4-12.3); Monocytes Absolute Auto 0.5 X10*3/uL (0.1-1.2); Monocytes Percent Auto 10.8 % (2-11); Neutrophils Percent Auto 39.4 % (45-73); Platelet Count 363 X10*3/uL (160-400); Red Blood Count 4.61 X10*6/uL (4.20-5.50); Red Cell Distribution Width 12.1 % (11.0-16.0)
[2024-11-28 23:28] LABS: Triiodothyronine T3 Total 112 ng/dL (76-181)
== END 2024-11-27 15:00 | disposition home or self-care (01) ==
LOC: HO.HHCL 14:59
PROVIDERS: Visit Provider Nurse Practitioner
DX: R79.89 Other specified abnormal findings of blood chemistry (principal); E05.90 Thyrotoxicosis, unspecified without thyrotoxic crisis or storm
CPT/HCPCS: 36415; 84480; 85025

== ENCOUNTER 2025-04-19 13:17 | Outpatient (AMB) | payer MEDICAID, SELFPAY ==
--- NOTE | 2025-04-19 13:41 | MHC.OFFVIS ---
Intake Visit Reasons: 6M follow up Intake Note: Patient presents today for follow up on: incontinence, frequency, urgency, and gross hematuria Urology Medication: myrbetriq Antibiotic Allergy: none Blood Thinner: none PVR: 94ml's Tax Associate Required: No Accompanied by: Spouse Allergies No Known Allergies (No Known Allergies*) Allergy (Verified 04/19/25 15:07) Medication List - Last Reconciled 04/19/25 by POONAM Hendrix- albuterol sulfate 90 mcg/actuation (Proventil HFA) 2 puffs inhalation Q4-6H PRN albuterol sulfate 2.5 mg inhalation TID atorvastatin 1 tab PO BEDTIME baclofen 5 mg PO BID bisacodyl (Dulcolax (bisacodyl)) 10 mg (2 x 5 mg) PO ONCE 1 day celecoxib (Celebrex) 200 mg PO DAILY PRN cholecalciferol (vitamin D3) 1 tab PO DAILY clonidine HCl 0.2 mg PO BEDTIME escitalopram oxalate (Lexapro) 1 tab PO BEDTIME lidocaine 5% (Lidoderm) 1 patch topical DAILY lorazepam 1 tab PO BID PRN mirabegron ER (Myrbetriq) 25 mg PO DAILY 90 days multivitamin 1 tab PO QAM nebulizer and compressor (Proneb Max Compressor-LC Plus) As directed pantoprazole 40 mg PO DAILY peg [id number]-[id number]-bhqdrjot 1-0.2-0.2 % (Artificial Tears ([id number]-beitvehz)) 1 drp ophthalmic (eye) TID triamcinolone acetonide 0.025% 1 appl topical BID HPI Comments Details: Jw is a pleasant 59 year old female patient of Dr. Brian who was accompanied by her at today's office visit. She has a past medical history of anemia, depression, anxiety, bipolar, and panic attacks. She presents to the office today for a follow up of her lower urinary tract symptoms and microscopic hematuria. In discussion with the patient today she reports feeling initial improvement with episodes of bladder pressure and urinary urgency and frequency she had been experiencing with Myrbetriq however most recently feels that she is experiencing episodes of mixed urinary incontinence. We did discuss potential causes of these lower urinary tract symptoms as well as further treatment options and risks and benefits of these treatment options. Previous workup of microscopic hematuria included a CT 11/07 notes no acute findings. Urine cytology results 09/06 Negative for high-grade urothelial carcinoma. In office urinalysis results reviewed with the patient today no microscopic hematuria noted. We discussed intermittent microscopic hematuria verses persistent microscopic hematuria. We discussed at length potential causes of microscopic hematuria as well as lower urinary tract symptoms patient was experiencing. She does have a history of cigar smoking in relation to her mandaen. She reports smoking cigars at least once a week on Tuesdays however sometimes it can be more than once a week. She otherwise denies gross/visible hematuria, dysuria, foul smelling urine, changes to urinary stream, flank pain, fever, and or chills. PVR 94ml's. She does discuss her reluctancy to taking medications. She otherwise offers no other issues or concerns at this time. [facility] Medical History History of anemia History of depression Anxiety Bipolar disorder Panic attacks Surgical History Hx of hand surgery Hx of dilation and curettage History of endometrial ablation History of Family History Maternal Grandmother Uterine cancer Social History Household Members: Spouse and Children Are you a primary before and after school daycare worker to a significant other at home: No Do you presently have visiting nurse or other home services: No Alcohol intake: current Alcohol intake frequency: holidays/special occasions only Patient Tobacco Use Status: Never used Tobacco Current occupational status: disabled Sexual orientation: Straight/Heterosexual Gender identity: Female Female Reproductive History Menstrual Age of Menarche: 12 Review of Systems Const All systems reviewed & are unremarkable except as noted in HPI and below Physical Exam Const General: cooperative, healthy appearing, comfortable, no acute distress, well developed, alert and awake Orientation/consciousness: patient oriented x3 Limitations: no limitations HEENT Head: Yes normal to inspection, Yes normocephalic and Yes atraumatic Ears: hearing grossly normal bilaterally Eyes General: appearance normal, both eyes and all related structures Neck Neck: Yes normal visual inspection and Yes trachea midline Chest Chest palpation & inspection: normal inspection of the chest Resp Effort & Inspection: normal respiratory effort and able to speak in complete sentences Cardio Rate: regular rate GI Inspection: Yes normal to inspection General: Yes no CVA tenderness Back/Spine/Pelvis Back: no CVA tenderness Skin General skin exam: no rashes or lesions noted Neuro General: patient oriented x3 Extrem General: Yes normal to inspection Psych Appearance: grossly normal and well kempt Mental Status: mental status grossly normal Speech and movement: Normal speech and movement present and Clear speech present Affect: normal affect Attitude: cooperative Thought process: Normal thought process present Thought content: Normal thought content present Insight: Fair insight present (Psych) Judgement: Fair judgement present (Psych) Office Procedures Post Void Residual Post Residual Void Post Void Residual (PVR): 94 [id number] Void Residual by ultrasound Results AMB Urinalysis, Automated UA Leukoctes 0 Kang/uL Last Edit by JA Owusu on 04/19/25 14:02 UA Nitrite Last Edit by Lisandro Chavarria [facility] on 04/19/25 14:02 UA Urobilinogen 0.2 mg/dL Last Edit by Lisandro Chavarria [facility] on 04/19/25 14:02 UA Protein 0 mg/dL Last Edit by Lisandro Chavarria [facility] on 04/19/25 14:02 UA pH 5.5 Last Edit by Lisandro Chavarria [facility] on 04/19/25 14:02 UA Blood 0 Francisco Javier/uL Last Edit by Lisandro Chavarria [facility] on 04/19/25 14:02 UA Specific Delano 1.015 Last Edit by Lisandro Chavarria [facility] on 04/19/25 14:02 UA Ketone Last Edit by Lisandro Chavarria [facility] on 04/19/25 14:02 UA Bilirubin 0 mg/dL Last Edit by Lisandro Chavarria [facility] on 04/19/25 14:02 UA Glucose 0 mg/dL Last Edit by Lisandro Chavarria [facility] on 04/19/25 14:02 Results Reviewed Results Reviewed: Laboratory Last Values Urine pH (Auto) 5.5 04/19/25 14:00 Specific Delano (Auto) 1.015 04/19/25 14:00 Urine Protein (Auto) 0 mg/dL 04/19/25 14:00 Glucose (UA)(Auto) 0 mg/dL 04/19/25 14:00 Urine Blood (Auto) 0 Francisco Javier/uL 04/19/25 14:00 Urine Bilirubin (Auto) 0 mg/dL 04/19/25 14:00 Urine Urobilinogen (Auto) 0.2 mg/dL 04/19/25 14:00 Leukocyte Esterase (Auto) 0 Kang/uL 04/19/25 14:00 Assessment & Plan Assessment & Plan (1) Mixed stress and urge urinary incontinence: Code(s): N39.46 - Mixed incontinence Category: Medical Plan In office urinalysis results reviewed with the patient today; as noted above. PVR 94 mL. We did discussed at length potential causes of lower urinary tract symptoms patient is experiencing as well as further treatment options and risks and benefits of these treatment options. Stop Myrbetriq. Start Gemtesa as discussed and prescribed. Will refer to pelvic floor therapy for further assessment evaluation. We did discuss near future in office urodynamics and or cystoscopy for further assessment evaluation. We also discussed bladder triggers/irritants. We discussed healthy bathroom behaviors. Follow-up in 1-3 months with PVR; or sooner with any issues, concerns, and or questions. Orders: Orders AMB Urinalysis Automated Today Z13.9 - Encounter for screening, unspecified AMB Post Void Residual by ultrasound Today R39.15 - Urgency of urination PT Evaluation and Treatment Today N39.46 - Mixed incontinence Medications: New vibegron (Gemtesa) 75 mg PO DAILY 30 tabs 3RF 30 days N32.81 - Overactive bladder Discontinued mirabegron ER (Myrbetriq) Discontinued Reason: Doctor's Order 25 mg PO DAILY 90 days 90 tabs 2RF N30.10 - Interstitial cystitis (chronic) without hematuria, N32.81 - Overactive bladder, R35.1 - Nocturia, R39.15 - Urgency of urination Patient Instructions: The patient had an opportunity to ask questions regarding the treatment plan. All questions were answered. Physical exam, labs, and imaging were discussed and reviewed in detail. As well as risks, benefits, and discussion of treatment choices. No major barriers to understanding were identified. The patient expressed understanding and agreement with the above treatment plan. The patient was made aware they should contact our office by phone for worsening of their current condition, the appearance of new symptoms, or with any questions or concerns. Compliance is encouraged with any medications and follow up testing that is ordered. It is a privilege to be allowed the opportunity to participate in? your urological care.? Again, if you have any questions or concerns If you have any questions or concerns please do not hesitate to contact me. The office is [phone]. This note is constructed using voice recognition software. While every effort has been made to ensure accuracy ob/gyn physician errors may have been included. Yours sincerely, WARREN Hendrix Coding Level of Care Code Est Pt Level 4 (32962) Diagnoses Mixed stress and urge urinary incontinence N39.46 CPT Codes Post Residual Void - PVR CPT Code: 46019-Gjsd Void Residual by ultrasound ([id number])
--- OUTSIDE RECORDS SUMMARY | 2025-04-19 13:43 | XMS_ITS | Encounter Summary ---
Author Organization [employer] Address [address] [facility] 7t [place] [address] Care Team Providers Care Machine Binding Folder Name Role Phone Nicole Rivera MD Primary Care Provider [phone] Reason for Referral * Consultation (Routine) - Authorized Specialty Diagnoses / Procedures Referred By Jc delong Referred To Contact Pharmacy Diagnoses Essential hypertension Nicole Rivera MD [address] [place] [address] Phone: tel: fax: Referral ID Status Reason Start Date Expiration Date Visits Requested Visits Authorized [id number] Authorized Consult and Treat 08/20/2024 08/20/2025 6 6 Encounter Details Date Type Department Care Team (Late st Contact Info) Description 08/20/2024 Orders Only [facility] [address] [place], [place] [phone] Nicole Rivera MD [address] [place], [place] [phone] Essential hypertension (Primary Dx) Social History Tobacco [...] Care Team (Late st Contact Info) Description 05/04/2025 3:00 PM EDT Medication Management [facility] [address] [place] [address] Kandice Arguello, PharmD [address] [place] [address] 06/16/2025 2:30 PM EDT Office Visit [facility] OPTOMETRY [address] [place] [address] Bessy Vasquez, OD [address] [place] [address] 06/28/2025 1:30 PM EDT Office Visit [facility] [address] [place] [address] Nicole Rivera MD [address] [place] [address] Scheduled Referrals Name Type Priority Associated Diagnoses Orde r Schedule Referral to Pharmacy CDTM Outpatient Referral Routine Essential hypertension Ordered: 08/20/2024 documented as of this encounter Visit Diagnoses Diagnosis Essential hypertension- Primary Unspecified essential hypertension documented in this encounter Additional Health Concerns Assessment Noted Time PHQ-9 Depression Total Score: 0 01/23/20 24 1:34 PM EDT documented as of this encounter Care Teams Machine Binding Folder Relationship Specialty Start Date End Date Nicole Rivera MD [address] [place] [address] PCP - General Family Medicine 05/01/23 documented as of this encounter
== END 2025-04-19 14:29 | disposition home or self-care (01) ==
LOC: HO.HUSH 13:18
PROVIDERS: PCP Family Medicine; Visit Provider Nurse Practitioner Family
DX: Z13.9 Encounter for screening, unspecified (principal); N39.46 Mixed incontinence
CPT/HCPCS: 99214

== ENCOUNTER → 2025-04-19 13:17 | Outpatient (BNVA) | payer MEDICAID, SELFPAY | PROVIDERS: PCP Family Medicine; Visit Provider Nurse Practitioner Family | DX: N39.46 Mixed incontinence (principal) | CPT/HCPCS: 51798; 81003; 99212 ==